=== PATIENT | female | born 1955 | race Caucasian/White ===

== ENCOUNTER 2023-04-24 13:16 | Outpatient (CLI) | payer MEDICARE, SELFPAY ==
--- NOTE | ~2023-04-24 | CT_ITS ---
Noncontrast CT scan of the right shoulder CLINICAL HISTORY: Preoperative planning TECHNIQUE: Axial noncontrast imaging of the right shoulder was performed. Sagittal and coronal reform atted images were constructed. Dose reduction technique was used on this scan by utilizing automated exposure control and iterative reconstruction technique. The dose-length product (DLP) was 477.30 mGy -cm. Findings: No acute fracture or dislocation seen. There is severe degenerative change of the glenohume ral joint. There is diffuse joint space narrowing with reactive sclerosis and subchondral cystic senior ge in the glenoid. Large inferomedial humeral head osteophyte present. There is mild AC joint degener ative change. No definite joint effusion seen. Visualized musculature is grossly unremarkable. No soft tissue mass or fluid collection evident. IMPRESSION: Severe glenohumeral joint osteoarthritis, as detailed above. Mild AC joint degenerative change. Reviewed, dictated and finalized at [facility]. 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
== END 2023-04-24 13:17 | disposition home or self-care (01) ==
LOC: ANHIMG 13:19
PROVIDERS: PCP Family Medicine; Visit Provider Orthopaedic Surgery
DX: M19.011 Primary osteoarthritis, right shoulder (principal)
CPT/HCPCS: 73200

== ENCOUNTER 2023-06-30 07:38 | Outpatient (CLI) | payer MEDICARE, SELFPAY ==
[2023-06-30 09:17] LABS: Hematocrit 37.4 % (37.0-47.0); Hemoglobin 11.4 g/dL (12.0-15.0); Mean Corpuscular HGB Conc 30.5 g/dl (32-36); Mean Corpuscular Hemoglobin 28.3 pg (26-34); Mean Corpuscular Volume 92.8 fl (80-100); Mean Platelet Volume 10.1 fl (7.4-10.4); Platelet Count Result 148 k/mm3 (150-375); Red Blood Count 4.03 M/mm3 (4.2-5.4); Red Cell Distribution Width 14.1 % (11.5-14.5)
[2023-06-30 09:31] LABS: Anion Gap 6 mmol/L (8-16); Blood Urea Nitrogen 18 mg/dL (7-17); Calcium 9.4 mg/dL (8.4-10.2); Carbon Dioxide 28 mmol/L (22-30); Chloride 107 mmol/L (98-107); Estimated Glomerular Filt Rate > 60; Glucose 99 mg/dL (65-110); Sodium 141 mmol/L (137-145)
[2023-06-30 09:47] LABS: White Blood Count 78.4 K/mm3 (4.5-10.0)
[2023-06-30 09:53] LABS: Band Neutrophils Percent 1 % (0-6); Basophils Absolute Manual 0.78 K/mm3 (0.0-0.1); Basophils Percent Manual 1 % (0-1); Lymphocytes Absolute Manual 50.96 K/mm3 (1.1-4.5); Metamyelocytes Percent 11 %; Monocytes Absolute Manual 0.78 K/mm3 (0.1-0.90); Monocytes Percent Manual 1 % (3-9); Neutrophils Absolute Manual 17.24 K/mm3 (1.7-7.2); Neutrophils Percent Manual 21 % (46-73); Total Cells Counted 100
[2023-06-30 09:54] LABS: Large Platelets Present; Platelet Estimate Decreased (Adequate); Schistocytes None Seen (NORMAL); Smudge Cells MANY
[2023-06-30 10:51] LABS: MRSA (PCR) NOT DETECTED (NOT DETECTE)
== END 2023-06-30 07:39 | disposition home or self-care (01) ==
LOC: ANHSURGERY 07:46
PROVIDERS: Anesthesiology; Visit Provider Orthopaedic Surgery
DX: M19.011 Primary osteoarthritis, right shoulder (principal); E11.9 Type 2 diabetes mellitus without complications; Z01.818 Encounter for other preprocedural examination
CPT/HCPCS: 36415; 80048; 85025; 86850; 86900; 86901; 87641

== ENCOUNTER 2023-07-11 01:44 | Day surgery (SDC) | payer MEDICARE, SELFPAY ==
[2023-06-30 08:17] VITALS: BP 157/84; PULSE 81; RESP 16; TEMP 37.1; O2SAT 98; BMI 32.8
--- NOTE | 2023-06-30 08:36 | PC.NURSE ---
Report to the Outpatient Waiting Room, entrance under the green pavilion located off [facility], at time __8:00AM on date __07/11/23 . Planned Procedure Time: ___10:00AM . Time changes happen often and if your time is changed the preop area will call you the afternoon before. - You and your visitor will be asked to self-screen and do not enter if you have any COVID symptoms. - A mask is optional within the hospital at this time. Patients may have clear liquids (water, carbonated beverages, clear teas, apple juice) until 3 hours prior to surgery with a maximum of 20 ounces. - No food from midnight until time of surgery. Take the following medications with a SIP of water the morning of surgery: ____LEVOTHYROXINE. TRADAMOL & MECLIZINE NEEDED. DO NOT STOP ANY OF YOUR OTHER PRESCRIPTION MEDICATIONS PRIOR TO SURGERY ?EXCEPT THE FOLLOWING Medications to discontinue per physician ___HOLD MELOXICAM 7 DAYS PRE-OP- LAST DOSE 07/03/23. HOLD ALL VITAMINS/SUPPLEMENTS 3 DAYS PRE-OP PER ANESTHESIA- LAST DOSE 07/07/23. Please no make-up, nail jordanian, hairspray, perfume, deodorant, or body powder the day of surgery. No jewelry (including any body piercings) or valuables the day of surgery, leave them at home. Please take a shower or bath the night before, or the morning of, surgery with an antibacterial soap. Wear comfortable, loose fitting clothing. Children are encouraged to wear pajamas. - Jewelry must be removed prior to entering the operating room. Rings and piercings that are not removed may be cut off. - The hospital will not accept responsibility for valuables. - Please leave all valuables, including medications, at home the day of surgery. If you are going home after surgery, a licensed experienced truck driver must drive you home. - NO public transportation without another adult if you receive anesthesia. - We recommend that an adult stay with you for 24 hours following discharge. - We also recommend that you do not drive, make important decision, drink alcoholic beverages, or take any drugs that were not prescribed by your health care provider for at least 24 hours after your discharge time. Follow any additional instructions given to you from your surgeon. If you or anyone in your household have experienced Covid symptoms in the past week, please notify your surgeon or the nurse liaison at the phone number below for possible testing. Telephone instructions given to ___PATIENT & HUSBAND and asked if any additional questions and then verbalized understanding. Patient advised to call surgeon office or pre surgery nurse liaison [phone] if any additional questions.
--- NOTE | 2023-06-30 09:01 | PC.NURSE ---
PT HAS SCRATCHES/OLD SCABS AT ARMS R/T PUPPY JUMPING ON HER. LENGTHY DISCUSSION REGARDING THE NEED FOR THESE TO HEAL PRIOR TO SURGERY. INSTRUCTION ON PROTECTING ARMS, WEARING LONG SLEEVES, AND NOT PICKING AT SCABS. INSTR TO CALL SURGEON IF SPOTS AREN'T HEALED PRIOR TO SURGERY. PT AND HUSB RELAY UNDERSTANDING.
[2023-07-11] VITALS (12 sets, daily range): BP systolic 129–157; BP diastolic 54–81; PULSE 92–110; RESP 13–20; TEMP 36.1–37.2; O2SAT 92–100
--- NOTE | ~2023-07-11 | XR_ITS ---
EXAMINATION: XR shoulder RT min 2V DATE: 07/11/2023 13:56 INDICATION: Right shoulder arthroplasty TECHNIQUE: AP, AP oblique and transscapular Y views of the right shoulder were obtained. COMPARISON: CT dated 04/24/2023 FINDINGS: Interval reverse right total shoulder arthroplasty which is in near-anatomic alignment. No fracture. Mild right acromioclavicular osteoarthritis. Expected small amount of soft tissue gas at the operativ e bed. Visualized portions of the lungs are clear. IMPRESSION: Right total shoulder arthroplasty, negative for postoperative purposes. Reviewed, dictated and finalized at location A. IN TUTOR
--- NOTE | 2023-07-11 08:09 | WPDANESEPPF ---
Anes - Initial Pre Proc Eval Procedure: Operation Date: 07/11/23 10:00 Proposed Procedures p Right Anatomic Total Shoulder Arthroplasty - Feliciano Mccracken MD Date/Time: 07/11/23 08:09 Surgeon: Feliciano Mccracken MD Pre Op Diagnosis: glenohumeral arthritis right shoulder Patient Data Age: 67 Gender: F Height: 1.52 m Weight: 76.3 kg Last Vital Signs Temp 37.1 C 06/30/23 08:17 Pulse 81 06/30/23 08:17 Resp 16 06/30/23 08:17 BP 157/84 H 06/30/23 08:17 Pulse Ox 98 06/30/23 08:17 O2 Del Method Room Air 06/30/23 08:17 Allergies Allergy/AdvReac Type Severity Reaction Status Date / Time amoxicillin Allergy Unknown Hives Verified 07/11/23 09:22 Penicillins Allergy Unknown Hives Verified 07/11/23 09:22 adhesive tape AdvReac Redness of Verified 07/11/23 09:22 Skin, EXCORIATION OF SKIN povidone-iodine AdvReac REDNESS, Verified 07/11/23 09:22 [From Betadine] IRRITATION OF SKIN Home Medications Medication Instructions Recorded Confirmed Type atorvastatin 40 mg tablet 40 mg PO DAILY 03/09/23 06/30/23 History blood-glucose meter 03/09/23 06/28/23 History duloxetine 20 mg capsule,delayed 40 mg PO HS 03/09/23 06/30/23 History release (Cymbalta) fluticasone propionate 50 1 spray intranasal DAILY PRN 03/09/23 06/30/23 History mcg/actuation nasal Congestion spray,suspension (Flonase Allergy Relief) insulin syringe-needle U-100 0.3 03/09/23 06/28/23 History mL 29 gauge x 1/2 lancets (Accu-Chek Softclix 03/09/23 06/28/23 History Lancets) latanoprost 0.005 % eye drops 1 drp EACH EYE HS 03/09/23 06/30/23 History (Xalatan) lisinopril 40 mg tablet 40 mg PO HS 03/09/23 06/30/23 History meclizine 12.5 mg tablet 12.5 mg PO TID PRN Dizziness Or 03/09/23 06/30/23 History Vertigo meloxicam 15 mg tablet 15 mg PO QAM 03/09/23 06/30/23 History metoprolol succinate 50 mg 50 mg PO HS 03/09/23 07/11/23 History tablet,extended release 24 hr pantoprazole 40 mg tablet,delayed 40 mg PO QAM 03/09/23 06/30/23 History release pen needle, diabetic 33 gauge x 03/09/23 06/28/23 History 5/32 (Microdot Insulin Pen Needle) tramadol 50 mg tablet 50 mg PO Q6H PRN Pain 03/09/23 06/30/23 History zinc acetate 50 mg (zinc) capsule 50 mg PO DAILY 03/09/23 06/30/23 History (Galzin) glipizide 2.5 mg tablet 1.25 mg PO HS 05/19/23 06/30/23 History levothyroxine 100 mcg capsule 100 mcg PO QAM 05/19/23 07/11/23 History metformin 1,000 mg tablet 1,000 mg PO BID 05/19/23 06/30/23 History dulaglutide 1.5 mg/0.5 mL 3 mg subcut WEEKLY 06/28/23 06/30/23 History subcutaneous pen injector Bifidobacterium infantis 4 mg 4 mg PO DAILY 06/30/23 06/30/23 History capsule (Align) docusate sodium 100 mg capsule 100 mg PO DAILY 06/30/23 06/30/23 History (Stool Softener) fiber 2 tablet PO DAILY 06/30/23 06/30/23 History aspirin 81 mg tablet,delayed 81 mg PO BID 14 days #28 tabs 07/11/23 Rx release oxycodone-acetaminophen 5 mg-325 1 - 2 tablet PO Q4-6H PRN pain #30 07/11/23 Rx mg tablet tabs Patient hx anesthesia problems: none Family hx anesthesia problems: none Results Review: All pre-operative results and documents have been reviewed as part of the pre-operative evaluation. [facility] Past Medical History Medical History Chronic bilateral back pain Class 1 obesity CLL (chronic lymphocytic leukemia) Diabetes Dyslipidemia Hyperlipidemia Hypertension Hypothyroidism Spinal stenosis Urge incontinence of urine Vertigo Surgical History Surgical History History of back surgery (~05/2019) Family History Family History Unknown Diabetes mellitus Hypertension Malignant neoplasm of prostate Social History Social History (Updated 06/28/23 @ 14:11 by Mohini Li) Smoking status: Never smoke
[2023-07-11] MEDS: LACTATED RINGERS 1,000 ML 30 ML IV CONT ×2 (09:10→13:32)
[2023-07-11] MEDS: ACETAMINOPHEN 500 MG TABLET 1000 MG PO ×3 (09:10→20:51)
[2023-07-11] MEDS: TRANEXAMIC ACID 1,000MG/ISO100 1,000 MG/100 ML BAG 200 MG IVPB (09:10)
[2023-07-11 09:18] LABS: Glucose Point of Care 91 mg/dl (65-105)
--- NOTE | 2023-07-11 10:56 | WPDHPUPDATE1 ---
History and Physical Update Update Date/Time: 07/11/23 10:56 History and Physical has been reviewed, including an updated exam of the patient. There are NO changes in the patient's condition. Risks, benefits, and alternatives have been discussed and questions answered. Patient agrees to proceed with procedure.
--- NOTE | 2023-07-11 11:00 | WPDANESPNB ---
Anes - Peripheral Nerve Block Date/Time: 07/11/23 11:00 I have discussed with the patient/family/POA the placement of a peripheral nerve block for post-operative pain management, including associated risks, benefits, complications, and side effects. Alternative methods of post-operative analgesia were detailed. Questions were solicited and answers provided to the satisfaction of the patient/family/POA. Time-Out: A pre-procedural Time-Out was completed immediately before starting the procedure and confirmed: Patient Identification, Site, Procedure, Patient Position and the Availability of Requisite Equipment. Clinical Indications: Acute post-operative pain management requested by the operative surgeon. Nerve Block Insertion Note Anes-nerve block: interscalene right Patient position: supine Skin prep: chlorhexidine Needle: 22 gauge, stimulating, insulated echogenic needle. Needle length: 50 mm Technique: ultrasound Injectate: bupivacaine 0.5% with epi 5 mcg/ml (20cc- no epi) Observations: tolerated well Complications: none Procedure start time:: 105 Procedure end time:: 1054
[2023-07-11] MEDS: ceFAZolin 2 GM/D5W 50 ML 2 GM/50 ML BAG IVPB ×2 (11:17→19:37)
[2023-07-11] MEDS: VANCOMYCIN HCL 1,000 MG VIAL 1000 MG TOPICAL (12:06)
[2023-07-11 13:39] LABS: Glucose Point of Care 143 mg/dl (65-105)
--- NOTE | 2023-07-11 13:54 | W.PM.PROC2 ---
Procedure Note - Detailed Date of Procedure 07/11/23 Pre-op Diagnosis Glenohumeral arthritis right shoulder Post-op Diagnosis Same Procedure Performed Reverse total shoulder arthroplasty, right. Surgeon Feliciano Mccracken MD Dairy Associate Nenita Quezada PA-C Anesthesia General and Regional (Interscalene block.) Findings Severe erosive changes confirmed. It was elected to proceed with reverse arthroplasty. Description of Procedure The patient was given an interscalene block in the preoperative area. Preoperative antibiotics were given. The patient was transferred to the operating room and a general anesthetic was administered. The beach chair position was used at 45 degrees. All bony prominences were padded. The head was carefully stabilized on the [facility] laborer heading. A sterile prep and drape was performed in the usual manner with ChloraPrep. A longitudinal incision was created at the anterior shoulder just lateral to the deltopectoral interval. Hydrogen peroxide was placed on the incision and then rinsed after one minute. Careful dissection was performed to expose the interval and protect the cephalic vein. The vein was retracted medially. The upper border of the pectoralis was released. Anterior circumflex vessel branches were suture ligated. The biceps was tenodesed. A subscapularis tenotomy was performed. The inferior capsule was released, exposing the humeral head. Osteophytes were removed. Care was taken to stay on bone to protect the axillary nerve. The anatomic head cut was taken with the oscillating saw. The guide pin was placed, central drilling performed, and the broach trial inserted. The neck anteversion and inclination were carefully assessed. The cut protector was placed, and attention was turned to the glenoid. Retractors were placed. Releases were carried out for exposure. The subscapularis was mobilized, the inferior capsule and long head of triceps released, and the superior and middle glenohumeral ligaments released as well. Labral tissue was resected as needed. The sizing template was used to assess the baseplate position on the glenoid. A guide pin was placed. Minimal reaming was used to accomplish a flat surface without violating the subchondral bone. Version was corrected according to preoperative templating. The boss was drilled, and the real component was impacted into position. Supplemental locking screws were placed centrally, superiorly, and inferiorly. The glenosphere was impacted into the taper. The proximal humerus was reamed for the inset component. The humeral components were trialed. The real humeral stem, tray, and insert were impacted into position. The shoulder was copiously irrigated periodically with pulsatile lavage. The shoulder was reduced and stability confirmed. 1 gram of Vancomycin powder was placed in the joint. The subscapularis tenotomy was repaired with #5 Ethibond sutures. The biceps tenodesis was incorporated with the pectoralis tendon repair. The deltopectoral space was reapproximated with number 1 Vicryl. The remaining tissue was closed with 0 Quill and 2-0 Quill running suture and steri-strips. A sterile silver occlusive dressing and shoulder immobilizer were placed. The patient was transferred to the recovery room. Physician social media assistant, Nenita Quezada PA-C, required for surgery; including patient positioning, draping, tissue retraction, maintaining instrument position, wound closure, and dressing placement. Implants Shoulder Innovations reverse TSA size 0 stem. +0 polyethylene insert. 10 degree baseplate. 33 +3 mm glenosphere. Estimated Blood Loss 100 Drains No Pathology None sent Complications No immediate complications Condition Stable Disposition PACU [facility] Billing Surgery - Charge Forward: Surgery Billing
[2023-07-11] MEDS: SODIUM CHLORIDE 0.9% IV 1,000 ML 125 ML IV CONT (15:30)
[2023-07-11] MEDS: traMADol HCL (*CRX) 50 MG TABLET PO ×2 (15:31→21:01)
--- NOTE | 2023-07-11 15:42 | ADMGEN ---
This patient, Raisa Small, was admitted to 3 [facility] Surg Room 316-02. Patient/family oriented to hospital policies and general routines including ID bracelet, bed and alarms, visiting hours, pain management, procedures, bathroom and other care routines, personal items, smoking policy, room service/diet, and visiting hours. Information on how to activate the Rapid Response Team has been discussed. Patient/Family are encouraged to report perceived risks to care and to ask questions if they do not understand what they are told or what they should do. arrived post op at 1430 patients pain 08/05, scd's applied, IVF started, cryo therapy started. family at bedside.
[2023-07-11] MEDS: ASPIRIN 81 MG ENTERIC TABLET PO (16:45)
[2023-07-11] MEDS: metFORMIN HCL 500 MG TABLET 1000 MG PO (16:45)
[2023-07-11] MEDS: SENNA/DOCUSATE SODIUM TABLET 2 TAB PO (16:46)
--- NOTE | 2023-07-11 17:00 | PM.IMCN ---
Assessment and Plan Assessment and plan (1) Arthritis of right glenohumeral joint: Code(s): M19.011 - Primary osteoarthritis, right shoulder Status: Acute Assessment and Plan: s/p right anatomic total shoulder arthroplasty on 07/11/23 - ambulate with assistance and up to chair - cold flow therapy - use IS - neurovasc checks - see order for intervals - SCDs and TEDS - resume diet - pain management - zofran PRN - monitor labs in AM - CBC and BMP - bowel regimen: docusate/senna, polyethylene glycol - maintenance fluids: NS 125 mL/hr x8 hrs - prophylactic atb - Ancef - PT/OT eval and treat (2) Diabetes: Qualifiers: Diabetes mellitus complication status: without complication Diabetes mellitus terminal operations supervisor insulin use: without terminal operations supervisor use Diabetes mellitus type: type 2 Qualified Code(s): E11.9 - Type 2 diabetes mellitus without complications Code(s): E11.9 - Type 2 diabetes mellitus without complications Status: Acute Assessment and Plan: - Hypoglycemia protocol - POC blood glucose ACHS - home medications - continue glipizide, metformin. hold Trulicity. - correct regimen ordered - low dose TIDWM and HS - A1C ordered (3) Hypertension: Qualifiers: Hypertension type: primary hypertension Qualified Code(s): I10 - Essential (primary) hypertension Code(s): I10 - Essential (primary) hypertension Status: Acute Assessment and Plan: - chronic, mildly elevated at present - continue home medications: lisinopril and metoprolol - monitor BP (4) CLL (chronic lymphocytic leukemia): Code(s): C91.10 - Chronic lymphocytic leukemia of B-cell type not having achieved remission Status: Acute Assessment and Plan: -follows with Oncologist in [facility] -not currently on chemo or radiation -WBC 78.4, absolute neutrophils 17.24, absolute lymphocytes 50.96, platelet count 148 -per patient WBC is typically 76, plan to not start treatment until she reaches a certain threshold due to lack of symptoms -repeat CBC in AM Plan s/p right anatomic total shoulder arthroplasty on 07/11/23. reviewed home medications. monitor glucose and BP. Has CLL - WBC baseline 76, currently 78. Diet: diabetic diet GI Prophylaxis: continue home pantoprazole DVT Prophylaxis: SCDs, TEDs Lines: pIV Code Status: Full Code HPI Date of Consult Consult date: 07/11/23 Requesting Physician: Feliciano Mccracken MD Primary Care Provider: Josi Haque, Consult Narrative Reason for consult: Medical Managment Narrative: 67 y/o F presented here for surgical management of her R glenohumeral joint arthritis with PMH of HLD, HTN, DM, hypothyroidism, vertigo, and CLL (not currently treated). Patient has been following with the orthopedic team here at [facility] since Mar 2023. Patient sustained injury to R shoulder several years ago when she fell and her shoulder struck the back of a trailer. Pain had been worsening over the last 9 months. Patient has been on Meloxicam and not a good candidate for shoulder therapy. Elected for surgical management due to the need to carry heavy buckets - [place] her to be active. Patient had a right anatomic total shoulder arthroplasty by Nawaf BROWN, no immediate post-op complications. Pre-operative workup showed elevated WBC at 78.4, hgb of 11.4, and creatinine of 0.6. Currently experiencing some numbness in her hand which does not extend to her forearm or shoulder. Expected finding per ortho when discussed post-operatively. Described sensation as if her hand is too swollen to close into a fist. No pain or N/V. Review of Systems Review of Systems: All systems reviewed & are unremarkable except as noted in HPI and below PMFSH Past Medical History Medical History (Updated 07/11/23 @ 18:21 by Christina Valencia, LILY) Chronic bilateral back pain Class 1 obesity CLL (chroni
[2023-07-11 20:52] LABS: Glucose Point of Care 200 mg/dl (65-105)
[2023-07-11] MEDS: DULoxetine HCL 20 MG CAPSULE.DR 40 MG PO (20:52)
[2023-07-11] MEDS: lisinopriL 20 MG TABLET 40 MG PO (20:52)
[2023-07-11] MEDS: METOPROLOL SUCCINATE EXT REL 50 MG TABCR PO (20:52)
[2023-07-11] MEDS: ERYTHROMYCIN OPHTH OINTMENT 1 GM TUBE 1 APPLIC LEFT EYE (20:53)
[2023-07-11] MEDS: LATANOPROST 0.005% OP SOLN 2.5 ML BTL 1 DROP EACH EYE (20:53)
[2023-07-12] MEDS: traMADol HCL (*CRX) 50 MG TABLET PO ×2 (01:44→10:48)
[2023-07-12] MEDS: ACETAMINOPHEN 500 MG TABLET 1000 MG PO ×2 (02:00→08:54)
[2023-07-12] MEDS: ceFAZolin 2 GM/D5W 50 ML 2 GM/50 ML BAG IVPB (03:55)
[2023-07-12 04:07] VITALS: BP 124/60; PULSE 85; RESP 14; TEMP 36.1; O2SAT 95
[2023-07-12] MEDS: LEVOTHYROXINE SODIUM 100 MCG TABLET PO (04:10)
[2023-07-12] MEDS: ERYTHROMYCIN OPHTH OINTMENT 1 GM TUBE 1 APPLIC LEFT EYE ×2 (04:10→08:55)
[2023-07-12 06:17] LABS: Basophils Absolute Auto 0.1 K/mm3 (0.0-0.1); Basophils Percent Auto 0.1 % (0.2-1.2); Hematocrit 34.8 % (37.0-47.0); Hemoglobin 10.4 g/dL (12.0-15.0); Immature Granulocyte Absolute 0.21 K/mm3 (0.00-0.031); Immature Granulocyte Percent A 0.3 % (0-0.5); Lymphocytes Absolute Auto 66.18 K/mm3 (0.9-3.2); Lymphocytes Percent Auto 88.7 % (18.3-44.2); Mean Corpuscular HGB Conc 29.9 g/dl (32-36); Mean Corpuscular Volume 96.9 fl (80-100); Mean Platelet Volume 10.4 fl (7.4-10.4); Monocytes Absolute Auto 1.4 K/mm3 (0.1-0.6); Monocytes Percent Auto 1.9 % (2.6-8.5); Neutrophils Absolute Auto 6.6 K/mm3 (1.3-6.7); Platelet Count Result 141 k/mm3 (150-375); Red Blood Count 3.59 M/mm3 (4.2-5.4); Red Cell Distribution Width 14.3 % (11.5-14.5)
[2023-07-12 06:27] LABS: Anion Gap 5 mmol/L (8-16); Blood Urea Nitrogen 15 mg/dL (7-17); Calcium 9.1 mg/dL (8.4-10.2); Carbon Dioxide 27 mmol/L (22-30); Chloride 106 mmol/L (98-107); Estimated CRCL calculation 59 ml/min; Estimated Glomerular Filt Rate > 60; Glucose 141 mg/dL (65-110); Potassium 4.8 mmol/L (3.4-5.0); Sodium 138 mmol/L (137-145)
[2023-07-12 06:46] LABS: White Blood Count 74.6 K/mm3 (4.5-10.0)
[2023-07-12 06:56] LABS: Hemoglobin A1C 6.7 % (<5.7)
[2023-07-12 07:22] LABS: Glucose Point of Care 121 mg/dl (65-105)
--- NOTE | 2023-07-12 07:51 | PM.DS ---
DS: Admitting Diagnosis Discharge Date 07/12/23 Admitting Diagnosis glenohumeral joint arthritis DS: Discharge Diagnosis Discharge Diagnosis (1) Status post reverse total arthroplasty of right shoulder: Code(s): Z96.611 - Presence of right artificial shoulder joint Status: Acute Plan Postop day 1: Right reverse total shoulder arthroplasty Patient tolerated procedure well. No complications. Pain manageable with pain medication. No numbness or tingling. We had a lengthy discussion regarding postoperative wound care, limitations, expectations, and exercises. Patient shows good understanding. She has had initial physical therapy and is tolerating it well. DVT prophylaxis: 81 mg baby aspirin b.i.d. for 14 days. Pain medication: Percocet. Patient has followup appointment with Dr. Mccracken in 3 weeks. DS: Summary Hospital Course Hospital Course: Patient has had initial PT/OT and is tolerating it well. Status at Discharge Functional status at discharge: independent ambulation Overall status at discharge: patient is progressing back to baseline Time Spent with Patient Time attestation: Total time spent providing and/or coordinating discharge services: Exam Narrative: Normal weight 67 y/o Female. Resting comfortably in bed. Wearing sling. Dressing dry and intact with no drainage. Moderate swelling. Moderate ecchymosis. No erythema. No hematoma. Range of motion limited due to pain. Calf nontender. Neurologic status intact. No varicosities. Distal pulses palpable. Deltoid fires. DS: Data Data Completed and Pending Labs on day of discharge: Labs from last 24 hours 07/12/23 07/12/23 07/11/23 07:15 05:56 20:14 WBC 74.6 H* RBC 3.59 L Hgb 10.4 L Hct 34.8 L MCV 96.9 MCH 29.0 MCHC 29.9 L RDW 14.3 Plt Count 141 L MPV 10.4 Immature Gran % (Auto) 0.3 Neut % (Auto) 9.0 L Lymph % (Auto) 88.7 H Letcher % (Auto) 1.9 L Eos % (Auto) 0.0 Baso % (Auto) 0.1 L Lymph # (Auto) 66.18 H Letcher # (Auto) 1.4 H Eos # (Auto) 0.0 Baso # (Auto) 0.1 Abs Immat Gran (auto) 0.21 H Absolute Neuts (auto) 6.6 Absolute Nucleated RBC 0.0 Nucleated RBC % 0.0 Sodium 138 Potassium 4.8 Chloride 106 Carbon Dioxide 27 Anion Gap 5 L BUN 15 Creatinine 0.70 Estim Creat Clear Calc 59 Estimated GFR > 60 Glucose 141 H POC Capillary Glucose 121 H 200 H Hemoglobin A1c 6.7 H Calcium 9.1 07/11/23 07/11/23 13:37 09:15 WBC RBC Hgb Hct MCV MCH MCHC RDW Plt Count MPV Immature Gran % (Auto) Neut % (Auto) Lymph % (Auto) Letcher % (Auto) Eos % (Auto) Baso % (Auto) Lymph # (Auto) Letcher # (Auto) Eos # (Auto) Baso # (Auto) Abs Immat Gran (auto) Absolute Neuts (auto) Absolute Nucleated RBC Nucleated RBC % Sodium Potassium Chloride Carbon Dioxide Anion Gap BUN Creatinine Estim Creat Clear Calc Estimated GFR Glucose POC Capillary Glucose 143 H 91 Hemoglobin A1c Calcium Discharge Plan Discharge Patient Disposition: Home, Self-Care Discharge Instructions: See green instruction sheets Stand Alone Forms: General Discharge Instructions Follow-up/Referrals: Nenita Quezada PA [Physician Senior Communications Specialist] - Discharge Medications: New aspirin 81 mg tablet,delayed release (DR/EC) 81 mg PO BID 14 Days Qty: 28 0RF oxycodone-acetaminophen 5-325 mg tablet 1 - 2 tablet PO Q4-6H MDD 6 PRN (Reason: pain) Qty: 30 0RF Continued (DME) lancets [Accu-Chek Softclix Lancets] Misc See Rx Instructions .Route Rx Instructions: As directed atorvastatin 40 mg tablet 40 mg PO DAILY (DME) insulin syringe-needle U-100 0.3 mL 29 gauge x 1/2 syringe See Rx Instructions .Route Rx Instructions: As directed (DME) blood-glucose meter Kit See Rx Instructions .Route Rx
[2023-07-12 07:59] VITALS: BP 143/71; PULSE 76; RESP 16; TEMP 35.9; O2SAT 99
--- NOTE | 2023-07-12 08:02 | WPDANESPN ---
Anes - Prog Note Post-Op Date/Time: 07/12/23 08:02 Cardiovascular status: normal Respiratory status: normal Airway patency: baseline Mental status: baseline Post-Op hydration status: normal Vital Signs: Last Vital Signs Temp 35.9 C L 07/12/23 07:59 Pulse 76 07/12/23 07:59 Resp 16 07/12/23 07:59 BP 143/71 H 07/12/23 07:59 Pulse Ox 99 07/12/23 07:59 O2 Del Method Room Air 07/11/23 20:00 O2 Flow Rate 2 07/11/23 14:15 Pain Score (VAS): 0 I/O: Intake & Output 07/11/23 07/12/23 07/12/23 23:59 07:59 15:59 Intake Total 290 Balance 290 Laboratory Tests 07/12/23 05:56 07/12/23 05:56 07/11/23 07/11/23 07/11/23 09:15 13:37 20:14 WBC RBC Hgb Hct MCV MCH MCHC RDW Plt Count MPV Immature Gran % (Auto) Neut % (Auto) Lymph % (Auto) [place] % (Auto) Eos % (Auto) Baso % (Auto) Lymph # (Auto) [place] # (Auto) Eos # (Auto) Baso # (Auto) Abs Immat Gran (auto) Absolute Neuts (auto) Absolute Nucleated RBC Nucleated RBC % Sodium Potassium Chloride Carbon Dioxide Anion Gap BUN Creatinine Estim Creat Clear Calc Estimated GFR Glucose POC Capillary Glucose 91 143 H 200 H Hemoglobin A1c Calcium 07/12/23 07/12/23 05:56 07:15 WBC 74.6 H* RBC 3.59 L Hgb 10.4 L Hct 34.8 L MCV 96.9 MCH 29.0 MCHC 29.9 L RDW 14.3 Plt Count 141 L MPV 10.4 Immature Gran % (Auto) 0.3 Neut % (Auto) 9.0 L Lymph % (Auto) 88.7 H [place] % (Auto) 1.9 L Eos % (Auto) 0.0 Baso % (Auto) 0.1 L Lymph # (Auto) 66.18 H [place] # (Auto) 1.4 H Eos # (Auto) 0.0 Baso # (Auto) 0.1 Abs Immat Gran (auto) 0.21 H Absolute Neuts (auto) 6.6 Absolute Nucleated RBC 0.0 Nucleated RBC % 0.0 Sodium 138 Potassium 4.8 Chloride 106 Carbon Dioxide 27 Anion Gap 5 L BUN 15 Creatinine 0.70 Estim Creat Clear Calc 59 Estimated GFR > 60 Glucose 141 H POC Capillary Glucose 121 H Hemoglobin A1c 6.7 H Calcium 9.1 Post-procedural complaints: none Patient Feedback: Patient satisfied with anesthetic care.
[2023-07-12 08:53] VITALS: O2SAT 96
[2023-07-12] MEDS: SENNA/DOCUSATE SODIUM TABLET 2 TAB PO (08:53)
[2023-07-12] MEDS: PANTOPRAZOLE 40 MG TABLET PO (08:53)
[2023-07-12] MEDS: ASPIRIN 81 MG ENTERIC TABLET PO (08:53)
[2023-07-12] MEDS: ATORVASTATIN 40 MG TABLET PO (08:53)
[2023-07-12] MEDS: metFORMIN HCL 500 MG TABLET 1000 MG PO (08:54)
[2023-07-12] MEDS: MELOXICAM 7.5 MG TABLET 15 MG PO (08:55)
[2023-07-12 11:22] LABS: Glucose Point of Care 118 mg/dl (65-105)
[2023-07-12] MEDS: CEPHALEXIN 500 MG CAPSULE 1000 MG PO (11:59)
[2023-07-12 12:00] VITALS: BP 142/73; PULSE 79; RESP 16; TEMP 35.9; O2SAT 98
== END 2023-07-12 12:20 | disposition home or self-care (01) ==
LOC: ANHSURGERY 07:39 → ANH3MEDSUR 14:25
PROVIDERS: Physician Assistant Surgical; Student in an Organized Health Care Education/Training Program; PCP Family Medicine; Visit Provider Orthopaedic Surgery
PROC: (CPT 23472; principal; 2023-07-11 10:00)
DX: M19.011 Primary osteoarthritis, right shoulder (principal); G89.18 Other acute postprocedural pain; C91.10 Chronic lymphocytic leukemia of B-cell type not having achieved remission; E11.9 Type 2 diabetes mellitus without complications; E78.5 Hyperlipidemia, unspecified; I10 Essential (primary) hypertension; E03.9 Hypothyroidism, unspecified; E66.9 Obesity, unspecified; Z68.31 Body mass index [BMI] 31.0-31.9, adult; Z79.84 Long term (current) use of oral hypoglycemic drugs; Z79.85 Long-term (current) use of injectable non-insulin antidiabetic drugs
CPT/HCPCS: 23472; 64415; 36415; 73030; 80048; 82948; 83036; 85025; 97110; 97161; 97165; 97530; 97535; A4565; A9270; C1713; C1776; J0171; J0330; J0690; J1100; J1170; J1885; J2250; J2270; J2405; J2704; J2795; J3010; J3370; J7030; J7120

== ENCOUNTER 2024-07-04 09:54 | Outpatient (CLI) | payer MEDICARE, SELFPAY ==
--- NOTE | ~2024-07-04 | XR_ITS ---
Right Shoulder Technique: AP and scapular Y views were obtained. Clinical History: Arthroplasty COMPARISON: 08/02/2023 Findings: No fracture or dislocation is seen. Stable right shoulder arthroplasty. No hardware complic ation is evident. Soft tissues are unremarkable. Impression: Stable right shoulder arthroplasty. No acute abnormality. Reviewed, dictated and finalized at [facility]. INUOUS PROCESS TANNER ROTARY DRUM Impression: Stable right shoulder arthroplasty. No acute abnormality.
--- OUTSIDE RECORDS SUMMARY | 2024-07-04 10:20 | XMS_ITS | Patient Health Summary ---
Author Organization [facility] Address [address] [place] [address] Care Team Providers Care Waste Collector Name Role Phone Unavailable Primary Care Provider Unavailabl e Note from [facility],non-owned Affiliates and Associated Physician Practices is amultiple site organization consisting of ambulatory clinics and hospital sitesin [place], [place], [place] and [place]. This disclosure is being madepursuant to the Care Everywhere program and may not contain all information available regarding this patient. Last updated 18.[facility] Allergies * Betaine(Urticaria) -Medium Criticality * Penicillins(Urticaria) -Medium Criticality * Sulfa Drugs(Urticaria) -Medium Criticality Medications * Be aware that medications may not be up to date on this document. Alwaysverify current medications with the patient. * Zinc Gluconate (ZINC COLD THERAPY PO) * omeprazole EC (PRILOSEC OTC) 20 MG tablet Take 1 tablet by mouth 2 times daily * dulaglutide (TRULICITY) 1.5 MG/0.5ML injection(Started 03/06/2019) Inject 1.5 mg subcutaneously every 7 days * glipiZIDE (GLUCOTROL) 5 MG tablet(Started 03/06/2019) Take 2.5 mg by mouth 2 times daily * levothyroxine (SYNTHROID) 112 MCG tablet(Started 12/25/2018) TAKE 1 TABLET BY MOUTH ONCE DAILY * lisinopril (PRINIVIL; ZESTRIL) 40 MG tablet(Started 03/28/2019) TAKE 1 TABLET BY MOUTH ONCE DAILY * lovastatin (MEVACOR) 40 MG tablet(Started 03/29/2019) Take 40 mg by mouth once daily 3 refills left * metFORMIN (GLUCOPHAGE) 1000 MG tablet(Started 04/25/2018) Take 1,000 mg by mouth 2 times daily with morning and evening meal * metoprolol succinate XL 24hr (TOPROL XL) 50 MG tablet(Started 07/09/2018) TAKE 1 TABLET BY MOUTH ONCE DAILY * HYDROcodone-acetaminophen (NORCO) 7.5-325 MG tablet(Started 06/11/2019) Take 1-2 tablets by mouth every 4 hours as needed * cyclobenzaprine (FLEXERIL) 10 MG tablet(Started 06/11/2019) Take 1 tablet by mouth 3 times daily as needed for Muscle Spasms * DULoxetine (CYMBALTA) 20 MG capsule(Started 06/14/2019) Take 1 capsule by mouth once daily Active Problems Problem Noted Date Diagnosed Date Spinal stenosis of lumbar re gion with neurogenic claudication 06/10/2019 Social History Tobacco Use Types Packs/Day Years Used Date Smoking Tobacco: Never Smokeless Tobacco: Never Tobacco Cessation:Counseling Given: No Alcohol Use Standard Drinks/Week Comments Yes 2 (1 standard drink = 0.6 oz pur e alcohol) AUDIT-C Answer Date Recorded Frequency of Alcohol Consumption 4 or more times a week 04/30/2019 Average Number of Drinks 1 or 2 019 Frequency of Binge Drinking Never 07/2018 Sex and Gender Information Value Date Recorded Sex Assigned at Not on file Gender Identity Not on file Sexual Orientation Not on file Last Filed Vital Signs Vital Sign Reading Time Taken Comments Blood Pressure 108/51 06/14/2019 8:37 AM JACQUARD CARD CUTTER Pulse 88 06/14/2019 8:37 AM JACQUARD CARD CUTTER Temperature 36.7 C (98.1 F) 06/14/2019 8:37 AM JACQUARD CARD CUTTER Respiratory Rate 20 06/14/2019 8:37 AM JACQUARD CARD CUTTER Oxygen Saturation 93% 06/14/2019 8:37 AM JACQUARD CARD CUTTER Inhaled Oxygen Concentration - - Weight 78.5 kg (173 lb) 07/26/2019 10:50 AM JACQUARD CARD CUTTER Height 154.9 cm (5' 1 ) 07/26/2019 10:50 AM JACQUARD CARD CUTTER Body Mass Index 32.69 07/26/2019 10:50 AM JACQUARD CARD CUTTER Procedures * APHERESIS/TRANSFUSION ORDER(Performed 06/18/2019) * GLUCOSE - POINT OF CARE(Performed 06/13/2019) * GLUCOSE - POINT OF CARE(Performed 06/13/2019) * GLUCOSE - POINT OF CARE(Performed 06/13/2019) * GLUCOSE - POINT OF CARE(Performed 06/13/2019) * GLUCOSE - POINT OF CARE(Performed 06/12/2019) * GLUCOSE - POINT OF CARE(Performed 06/12/2019) * GLUCOSE - POINT OF CARE(Performed 06/12/2019) * GLUCOSE - POINT OF CARE(Performed 06/11/2019) * GLUCOSE - POINT OF CARE(Performed 06/11/2019) * GLUCOSE - POINT OF CARE(Performed 06/11/2019) * GLUCOSE - POINT OF CARE(Performed 06/11/2019) * GLUCOSE - POINT OF CARE(Performed 06/11/2019) * GLUCOSE - POINT OF CARE(Performed 06/10/2019) * XR LUMBAR SPINE IN OR 1VW(Performed 06/10/2019) Performed for Chronic low back pain with left-sided sciatica, unspecified back pain laterality * DECOMPRESSION LUMBAR 1-2 LEVELS(Performed 06/10/2019) * GLUCOSE - POINT OF CARE(Performed 06/10/2019) * GLUCOSE - POINT OF CARE(Performed 06/10/2019) * BLOOD TYPE VERIFICATION(Performed 06/10/2019) * GLUCOSE - POINT OF CARE(Performed 06/10/2019) * TYPE + SCREEN PANEL(Performed 06/10/2019) * EKG(Performed 05/08/2019) Results * APHERESIS/TRANSFUSION ORDER (06/18/2019 6:14 PM JACQUARD CARD CUTTER) Narrative 06/18/2019 6:14 PM JACQUARD CARD CUTTER Ordered by an unspecified provider. Scanned Document NURSING - VITAL SIGN S AND ASSESSMENT * (ABNORMAL) GLUCOSE - POINT OF CARE (06/13/2019 11:27 PM JACQUARD CARD CUTTER) Only the most recent of16 resultswithin the time period is included. Glucose WB/POC 161(H) 70 - 106 mg/dL 06/14/2019 12:36 AM JACQUARD CARD CUTTER [facility] Specimen Type Arterial/C apillary 06/14/2019 12:36 AM JACQUARD CARD CUTTER [facility] Blood BLOOD SPECIMEN / Unknown 06/13/2019 11:27 PM JACQUARD CARD CUTTER 06/14/2019 12:36 AM JACQUARD CARD CUTTER Ravin Rose MD LAB - POINT OF CARE ORDERABLES [facility] [address] [place] [address] * XR LUMBAR SPINE IN OR 1VW (06/10/2019 4:12 PM JACQUARD CARD CUTTER) Anatomical Region Laterality Modality Spine Radiographic Savannah ging 06/10/2019 4:28 PM JACQUARD CARD CUTTER Narrative 06/10/2019 4:28 PM JACQUARD CARD CUTTER EXAM: XR LUMBAR SPINE IN OR 1VW*[id number] INDICATION: Lumbago with sciatica, left side COMPARISON: none available FINDINGS: Intraoperative crosstable lateral localizer shows metallic device at the L4 level. There is decreased intervertebral disc space height, degenerative endplate change, hypertrophic spurring and facet arthropathy throughout the lumbar spine. There is no compression or osseous destruction. Reading Radiologist: Jhony Tinoco MD on 06/10/2019 at 4:28 PM Procedure Note Jhony Tinoco MD - 06/10/2019 EXAM: XR LUMBAR SPINE IN OR 1VW*[id number] INDICATION: Lumbago with sciatica, left side COMPARISON: none available FINDINGS: Intraoperative crosstable lateral localizer shows metallic device at the L4 level. There is decreased intervertebral disc space height, degenerative endplate change, hypertrophic spurring and facet arthropathy throughout the lumbar spine. There is no compression or osseous destruction. Reading Radiologist: Jhony Tinoco MD on 06/10/2019 at 4:28 PM Ravin Rose MD DIAGNOSTIC IMAGING O RDERABLES * BLOOD TYPE VERIFICATION (06/10/2019 11:15 AM JACQUARD CARD CUTTER) ABO O 06/10/2019 11:46 AM JACQUARD CARD CUTTER [facility] Rh Type Negative 06/10/2019 11:46 AM JACQUARD CARD CUTTER [facility] Blood Bank BLOOD SPECIMEN / Unknown Venipuncture / Unknown 06/10/2019 11:15 AM JACQUARD CARD CUTTER 06/10/2019 11:23 AM JACQUARD CARD CUTTER Ravin Rose MD LAB - BLOOD BANK ORD ERABLES [facility] [address] [place] [address], [facility] * TYPE + SCREEN PANEL (06/10/2019 11:07 AM JACQUARD CARD CUTTER) ABO O 06/10/2019 11:46 AM JACQUARD CARD CUTTER [facility] Rh Type Negative 06/10/2019 11:46 AM JACQUARD CARD CUTTER [facility] Comment:History checked. Col lect retype. Antibody Screen Negative 06/10/2019 11:46 AM JACQUARD CARD CUTTER [facility] Blood Bank BLOOD SPECIMEN / Unknown Venipuncture / Unknown 06/10/2019 11:07 AM JACQUARD CARD CUTTER 06/10/2019 11:10 AM JACQUARD CARD CUTTER Herlinda Marie DO LAB - BLOOD BANK ORD ERABLES [facility] [address] * EKG (05/08/2019) Provider Unknown SCANNING ONLY
--- OUTSIDE RECORDS SUMMARY | 2024-07-04 10:20 | XMS_ITS | Encounter Summary ---
Author Organization [facility] Address [address] [place] [address] Phone Care Team Providers Care Gear Machine Operator Name Role Phone Josi Haque MD Primary Care Provider [phone] Maxim Barrios DPM Unavailable [phone] Alvarez Nelson MD Unavailable Mike Cardozo MD Unavailable Enmanuel Phipps MD Primary Care Provider [phone] Afshan Blankenship APRN, [facility] Primary Care Provider [phone] Reason for Visit * Reason Comments Medication Refill Encounter Details Date Type Department Care Team (Late st Contact Info) Description 12/07/[address] [facility] Medical [facility] - Family Medicine [facility] [address] [place] [address] Josi Haque MD [address] [place] [address] Medication Refill Social History Tobacco Use Types Packs/Day Years Used Date Smoking Tobacco: Never Smokeless Tobacco: Never Alcohol Use Standard Drinks/Week Comments Yes 0 (1 standard drink = 0.6 oz pur e alcohol) occasionally PHQ-2 Answer Date Recorded Total Score - Questions 1-9 0 10/28 Sexually Active Control Partners Comments Not Currently Male Comments No Sex and Gender Information Value Date Recorded Sex Assigned at Female 01/09/2023 7:40 AM CDT Legal Sex Female 12:35 AM CDT Gender Identity Female 01/09/2023 7:40 AM CDT Sexual Orientation Not on file COVID-19 Exposure Response Date Recorded In the last 10 days, have yo u been in contact with someone who was confirmed or suspected to have Coronavirus/COVID-19? No / Unsure 11/22/2022 9:28 AM CDT documented as of this encounter Miscellaneous Notes * Telephone Encounter - Luciana Terry RN - 12/07/2022 1:16 PM CDT Medication failed the protocol, provider to review and approve the medication order if appropriate. Requested Prescriptions Pending Prescriptions Disp Refills meloxicam (MOBIC) 15 MG Tablet [Pharmacy Med Name: MELOXICAM 15 MG TABLET] 90 Tablet 1 Sig: TAKE 1 TABLET BY MOUTH EVERY DAY NSAIDs Protocol Failed - 12/07/2022 12:42 AM Failed - Not delegated, patient not between 1 and 65 years of age Passed - Normal serum creatinine in past 12 months CREATININE, BLOOD Date Value Ref Range Status 11/17/2022 0.69 0.60 - 1.10 mg/dL Final Passed - Visit with relevant provider in past 12 months or upcoming 90 days Recent Visits Date Type Provider Dept 11/22/22 Office Visit Lien Thomas APRN, ACID WASHER OPERATOR [facility] 08/11/22 Office Visit Josi Haque MD [facility] 04/14/22 Office Visit Josi Haque MD [facility] Showing recent visits within past 365 days and meeting all other requirements Future Appointments Date Type Provider Dept 02/16/23 Appointment Josi Haque MD [facility] Showing future appointments within next 90 days and meeting all other requirements Passed - No matching NSAID med order in past 45 days No matching medication orders between 10/23/2022 1:16 PM and 12/07/2022 1:16 PM Passed - AST less than 55 or ALT less than 90 in past 12 months SGOT (AST) Date Value Ref Range Status 11/16/2022 24 <=32 U/L Final SGPT (ALT) Date Value Ref Range Status 11/16/2022 31 <=41 U/L Final Passed - HGB greater than 10 or HCT greater than 30 in past 12 months HEMOGLOBIN (HGB) Date Value Ref Range Status 11/17/2022 11.1 (L) 12.0 - 15.8 g/dL Final HEMATOCRIT (HCT) Date Value Ref Range Status 11/17/2022 35.8 (L) 36.0 - 47.0 % Final documented in this encounter Plan of Treatment Upcoming Encounters Date Type Department Care Team (Late st Contact Info) Description 07/19/2024 10:00 AM BOAT PILOT Office Visit [facility] Medical Group [facility] [address] [place] [address] Alvarez Nelson MD [address] [address] 10/07/2024 8:20 AM CDT Office Visit [facility] Oncology Services [address] [place] [address] Kevin Jin MD [address] [place] [address] Discharge Disposition: Discharged to home or Selfcare documented as of this encounter Visit Diagnoses Not on filedocumented in this encounter Additional Health Concerns Assessment Noted Time PHQ-9 Depression Total Score: 0 11/23/19 9:00 AM CDT documented as of this encounter Care Teams Gear Machine Operator Relationship Specialty Start Date End Date Josi Haque MD [address] [place] [address] PCP - General Family Medicine 04/07/15 05/07/23 Enmanuel Phipps MD [address] [place] [address] PCP - General Family Medicine 05/08/23 11/01/23 Afshan Blankenship, SCOW CAPTAIN, ACID WASHER OPERATOR [address] [place] [address] PCP - General Certified Nurse Practitioner 11/02/23 Maxim Barrios DPM [address] [place] [address] Podiatry 04/07/15 Alvarez Nelson MD [address] [address] Consulting Physician Endocrinology 03/14/22 Mike Cardozo MD [address] [address] Consulting Physician Colon and Rectal Surgery 07/15/22 documented as of this encounter
--- OUTSIDE RECORDS SUMMARY | 2024-07-04 10:20 | XMS_ITS | Encounter Summary ---
Author Organization [facility] Address [address] [place] [address] Phone Care Team Providers Care Earth Burner Name Role Phone Josi Haque MD Primary Care Provider [phone] Maxim Barrios DPM Unavailable [phone] Alvarez Nelson MD Unavailable Mike Cardozo MD Unavailable Enmanuel Phipps MD Primary Care Provider [phone] Afshan Blankenship APRN, [facility] Primary Care Provider [phone]- [phone] Reason for Visit * Reason Comments Medication Refill Encounter Details Date Type Department Care Team (Late st Contact Info) Description 09/18/2022 Refill [facility] Medical Group - Family Medicine [facility] [address] [place] [address] Josi Haque MD [address] [place] [address] Medication Refill Social History Tobacco Use Types Packs/Day Years Used Date Smoking Tobacco: Never Smokeless Tobacco: Never Alcohol Use Standard Drinks/Week Comments Yes 0 (1 standard drink = 0.6 oz pur e alcohol) occasionally PHQ-2 Answer Date Recorded Total Score - Questions 1-9 0 09/26 Sexually Active Control Partners Comments Not Currently Male Comments No Sex and Gender Information Value Date Recorded Sex Assigned at Female 01/09/2023 7:40 AM CDT Legal Sex Female 12:35 AM CDT Gender Identity Female 01/09/2023 7:40 AM CDT Sexual Orientation Not on file documented as of this encounter Miscellaneous Notes * Telephone Encounter - Luciana Terry RN - 09/19/2022 10:03 AM CDT Reordered 08/11/22 for 6 months - [facility] documented in this encounter Plan of Treatment Upcoming Encounters Date Type Department Care Team (Late st Contact Info) Description 07/19/2024 10:00 AM DRYWALL APPLICATOR Office Visit [facility] Medical Group - Endocrinology [facility] [address] [place] [address] Alvarez Nelson MD [address] [address] 10/07/2024 8:20 AM CDT [facility] [address] [place] [address] Kevin Jin MD [address] [place] [address] Discharge Disposition: Discharged to home or Selfcare documented as of this encounter Visit Diagnoses Not on filedocumented in this encounter Additional Health Concerns Assessment Noted Time PHQ-9 Depression Total Score: 0 10/09/19 10:00 AM CDT documented as of this encounter Care Teams Earth Burner Relationship Specialty Start Date End Date Josi Haque MD [address] [place] [address] PCP - General Family Medicine 04/07/15 05/07/23 Enmanuel Phipps MD [address] [place] [address] PCP - General Family Medicine 05/08/23 11/01/23 Afshan Blankenship, SOCIAL WORK INSTRUCTOR, SEPTIC TANK SETTER [address] [place] [address] PCP - General Certified Nurse Practitioner 11/02/23 Maxim Barrios DPM [address] [place] [address] Podiatry 04/07/15 Alvarez Nelson MD [address] [address] Consulting Physician Endocrinology 03/14/22 Mike Cardozo MD [address] [address] Consulting Physician Colon and Rectal Surgery 07/15/22 documented as of this encounter
--- OUTSIDE RECORDS SUMMARY | 2024-07-04 10:20 | XMS_ITS | Encounter Summary ---
Author Organization [facility] Address [address] [place] [address] Phone Care Team Providers Care Mortgage Loan Computation Clerk Name Role Phone Josi Haque MD Primary Care Provider [phone] Maxim Barrios DPM Unavailable [phone] Alvarez Nelson MD Unavailable Mike Cardozo MD Unavailable Enmanuel Phipps MD Primary Care Provider [phone] Afshan Blaknenship APRN, [facility] Primary Care Provider [phone] Reason for Visit * Reason Comments Medication Refill Encounter Details Date Type Department Care Team (Late st Contact Info) Description 04/12/2023 [facility] [address] [place] [address] Kevin Jin MD [address] [place], [place] [id number] Medication Refill Social History Tobacco Use Types Packs/Day Years Used Date Smoking Tobacco: Never Smokeless Tobacco: Never Alcohol Use Standard Drinks/Week Comments Yes 0 (1 standard drink = 0.6 oz pur e alcohol) occasionally PHQ-2 Answer Date Recorded Total Score - Questions 1-9 0 01/28 Education Answer Date Recorded What is the highest level of school you have completed or the highest degree you have received? Bachelor's degree (e.g., BA, AB, BS) 02/16/2023 Sexually Active Control Partners Comments Not Currently Male Comments No Sex and Gender Information Value Date Recorded Sex Assigned at Female 01/09/2023 7:40 AM CDT Legal Sex Female 12:35 AM CDT Gender Identity Female 01/09/2023 7:40 AM CDT Sexual Orientation Not on file documented as of this encounter Miscellaneous Notes * Telephone Encounter - Alejandra Torres RN - 04/12/2023 1:46 PM PLANNING ANALYST Pantoprazole refilled per Dr. Jin's last note. NING ANALYST documented in this encounter Plan of Treatment Upcoming Encounters Date Type Department Care Team (Late st Contact Info) Description 07/19/2024 10:00 AM PLANNING ANALYST Office Visit [facility] Medical Group - Endocrinology [facility] [address] [place] [address] Alvarez Nelson MD [address] [address] 10/07/2024 8:20 AM CDT [facility] [address] [place] [address] Kevin Jin MD [address] [place] [address] Discharge Disposition: Discharged to home or Selfcare documented as of this encounter Visit Diagnoses Not on filedocumented in this encounter Additional Health Concerns Assessment Noted Time PHQ-9 Depression Total Score: 0 02/17/20 8:50 AM CDT documented as of this encounter Care Teams Mortgage Loan Computation Clerk Relationship Specialty Start Date End Date Josi Haque MD [address] [place] [address] PCP - General Family Medicine 04/07/15 05/07/23 Enmanuel Phipps MD [address] [place] [address] PCP - General Family Medicine 05/08/23 11/01/23 Afshan Blankenship, CAMERA TECHNICIAN, ARSON INVESTIGATOR [address] [place] [address] PCP - General Certified Nurse Practitioner 11/02/23 Maxim Barrios DPM [address] [place] [address] Podiatry 04/07/15 Alvarez Nelson MD #[address] [phone] Consulting Physician Endocrinology 03/14/22 Mike Cardozo MD #[address] [address] Consulting Physician Colon and Rectal Surgery 07/15/22 documented as of this encounter
--- OUTSIDE RECORDS SUMMARY | 2024-07-04 10:20 | XMS_ITS | Referral Summary ---
Author Organization [facility] Address [address] [place] [address] Care Team Providers Care Metal Control Coordinator Name Role Phone Unavailable Primary Care Provider Unavailabl e Source Comments [facility],non-owned Affiliates and Associated Physician Practices is amultiple site organization consisting of ambulatory clinics and hospital sitesin [place], [place], [place] and [place]. This disclosure is being madepursuant to the Care Everywhere program and may not contain all information available regarding this patient. Last updated 18.[facility] [employer] Allergies Active Allergy Reactions Criticality Noted Date Comments Betaine Urticaria Medium 06/14/2018 Penicillins Urticaria Medium 04/07/2015 Sulfa Drugs Urticaria Medium 06/10/2019 Medications * Be aware that medications may not be up to date on this document. Alwaysverify current medications with the patient. Medication Sig Dispensed Refills Start Date End Date Status Zinc Gluconate (ZINC COLD THERAPY PO) Active omeprazole EC (PRILOSEC OTC) 20 MG tablet Take 1 tablet by mouth 2 times daily Active dulaglutide (TRULICITY) 1.5 MG/0.5ML injection Inject 1.5 mg subcutaneously every 7 days 03/06/2019 Active glipiZIDE (GLUCOTROL) 5 MG tablet Take 2.5 mg by mouth 2 times daily 03/06/2019 Active levothyroxine (SYNTHROID) 112 MCG tablet TAKE 1 TABLET BY MOUTH ONCE DAILY 12/25/2018 Active lisinopril (PRINIVIL; ZESTRIL) 40 MG tablet TAKE 1 TABLET BY MOUTH ONCE DAILY 03/28/2019 Active lovastatin (MEVACOR) 40 MG tablet Take 40 mg by mouth once daily 3 03/29/2019 Active metFORMIN (GLUCOPHAGE) 1000 MG tablet Take 1,000 mg by mouth 2 times daily with morning and evening meal 04/25/2018 Active metoprolol succinate XL 24hr (TOPROL XL) 50 MG tablet TAKE 1 TABLET BY MOUTH ONCE DAILY 07/09/2018 Active HYDROcodone-aceta minophen (NORCO) 7.5-325 MG tablet Take 1-2 tablets by mouth every 4 hours as needed 40 tablet 06/11/2019 Active Additional Information Patient not taking.Reported on 07/26/2019 cyclobenzaprine (FLEXERIL) 10 MG tablet Take 1 tablet by mouth 3 times daily as needed for Muscle Spasms 42 tablet 06/11/2019 Active Additional Information Patient not taking.Reported on 07/26/2019 DULoxetine (CYMBALTA) 20 MG capsule Take 1 capsule by mouth once daily 06/14/2019 Active Active Problems Problem Noted Date Diagnosed Date [...] Comments Blood Pressure 108/51 06/14/2019 8:37 AM PROPERTY AND CASUALTY INSURANCE AGENT Pulse 88 06/14/2019 8:37 AM PROPERTY AND CASUALTY INSURANCE AGENT Temperature 36.7 C (98.1 F) 06/14/2019 8:37 AM PROPERTY AND CASUALTY INSURANCE AGENT Respiratory Rate 20 06/14/2019 8:37 AM PROPERTY AND CASUALTY INSURANCE AGENT Oxygen Saturation 93% 06/14/2019 8:37 AM PROPERTY AND CASUALTY INSURANCE AGENT Inhaled Oxygen Concentration - - Weight 78.5 kg (173 lb) 07/26/2019 10:50 AM PROPERTY AND CASUALTY INSURANCE AGENT Height 154.9 cm (5' 1 ) 07/26/2019 10:50 AM PROPERTY AND CASUALTY INSURANCE AGENT Body Mass Index 32.69 07/26/2019 10:50 AM PROPERTY AND CASUALTY INSURANCE AGENT Plan of Treatment Not on file Procedures Procedure Name Priority Date/Time Associated Diagnosis Comments GLUCOSE - POINT OF CARE Routine 06/13/2019 8:04 AM PROPERTY AND CASUALTY INSURANCE AGENT from Last 3 Months or Most Recently Relevant to Health Maintenance Results * (ABNORMAL) GLUCOSE - POINT OF CARE (06/13/2019 8:04 AM PROPERTY AND CASUALTY INSURANCE AGENT) Glucose WB/POC 171(H) 70 - 106 mg/dL 06/13/2019 8:09 AM PROPERTY AND CASUALTY INSURANCE AGENT [facility] Specimen Type Arterial/C apillary 06/13/2019 8:09 AM PROPERTY AND CASUALTY INSURANCE AGENT [facility] Blood BLOOD SPECIMEN / Unknown 06/13/2019 8:04 AM PROPERTY AND CASUALTY INSURANCE AGENT 06/13/2019 8:09 AM PROPERTY AND CASUALTY INSURANCE AGENT Ravin Rose MD LAB - POINT OF CARE ORDERABLES [facility] [address] [place] [address] from Last 3 Months or Most Recently Relevant to Health Maintenance Advance Directives * Full Code (Latest Code Status on File) Date Activated Date Inactivated Comments 06/10/2019 9:09 PM 06/14/2019 11:16 AM
--- OUTSIDE RECORDS SUMMARY | 2024-07-04 10:20 | XMS_ITS | Encounter Summary ---
Author Organization [facility] Address [address] [place] [address] Phone Care Team Providers Care E Commerce Merchandising Coordinator Name Role Phone Josi Haque MD Primary Care Provider [phone] Maxim Barrios DPM Unavailable [phone] Alvarez Nelson MD Unavailable Mike Cardozo MD Unavailable Enmanuel Phipps MD Primary Care Provider [phone] Afshan Blankenship APRN, [facility] Primary Care Provider [phone]- [phone] Reason for Visit * Reason Comments Medication Refill Encounter Details Date Type Department Care Team (Late st Contact Info) Description 05/06/2020 Refill [facility] - [facility]ology - [place] [address] [place] [address] Alvarez Nelson MD [address] [address] Medication Refill Social History Tobacco Use Types Packs/Day Years Used Date Smoking Tobacco: Never Smokeless Tobacco: Never Alcohol Use Standard Drinks/Week Comments Yes 0 (1 standard drink = 0.6 oz pur e alcohol) occasionally PHQ-2 Answer Date Recorded PHQ-2 Score 0 02/01/2019 Sexually Active Control Partners Comments Not Currently Male Comments No Sex and Gender Information Value Date Recorded Sex Assigned at Female 01/09/2023 7:40 AM CDT Legal Sex Female 12:35 AM CDT Gender Identity Female 01/09/2023 7:40 AM CDT Sexual Orientation Not on file documented as of this encounter Miscellaneous Notes * Telephone Encounter - Soraida Mayo RN - 05/06/2020 2:08 PM VEGETABLE HANDLER Refill request received. Order pended. Requested Prescriptions Pending Prescriptions Disp Refills ??? Glucose Blood Strip [Pharmacy Med Name: Accu-Chek Karolina Plus In Vitro Strip] 200 Strip 0 Sig: Test twice daily. Next appt: 07/03/2020 TABLE HANDLER documented in this encounter Plan of Treatment Upcoming Encounters Date Type Department Care Team (Late st Contact Info) Description 07/19/2024 10:00 AM VEGETABLE HANDLER Office Visit [facility] - Endocrinology [facility] [address] [place] [address] Alvarez Nelson MD [address] [address] 10/07/2024 8:20 AM CDT [facility] [address] [place] [address] Kevin Jin MD [address] [place] [address] Discharge Disposition: Discharged to home or Selfcare documented as of this encounter Visit Diagnoses Diagnosis Type 2 diabetes mellitus with diabetic polyneuropathy, without long-term current use of insulin (HCC) documented in this encounter Additional Health Concerns Assessment Noted Time PHQ-9 Depression Total Score: 0 05/08/20 19 10:21 AM VEGETABLE HANDLER documented as of this encounter Care Teams E Commerce Merchandising Coordinator Relationship Specialty Start Date End Date Josi Haque MD [address] [place] [address] PCP - General Family Medicine 04/07/15 05/07/23 Enmanuel Phipps MD [address] [place] [address] PCP - General Family Medicine 05/08/23 11/01/23 Afshan Blankenship, STEAMBOAT INSPECTOR, ATTENDANT [employer] [address] [place] [address] PCP - General Certified Nurse Practitioner 11/02/23 Maxim Barrios DPM [address] [place] [address] Podiatry 04/07/15 Alvarez Nelson MD [address] [address] Consulting Physician Endocrinology 03/14/22 Mike Cardozo MD [address] [address] Consulting Physician Colon and Rectal Surgery 07/15/22 documented as of this encounter
--- OUTSIDE RECORDS SUMMARY | 2024-07-04 10:20 | XMS_ITS | Clinical Summary ---
Author Organization [facility] Address [address] [place] [address] Phone Care Team Providers Care Die Finisher Name Role Phone AKILA ARTIS MD Primary Care Provider [phone] Reason for Visit and Chief Complaint The Chief Complaint is: PT C/O PAIN IN BOTH EARS, HARD TO HEAR HAS BEEN GOING ON ABOUT A WEEK. ALSOHAS HAD A COUGH FOR 2-2 AND A HALF WEEKS Problems Includes: Problems addressed during this encounter and other active Problems All Visits Onset Date Resolved Date Provider Condition S tatus HYPERLIPIDEMIA NEC/NOS 01/13/2009 MORENITA ARTIS MD Active Last Documented On 9 11:48PM ; [facility] Essential Hypertension Benign 01/13/2009 AKILA ARTIS MD Active Last Documented On 1 9:22AM ; [facility] Diabetes Mellitus Type 2 10/12/2008 AKILA LAM MD Active Last Documented On 1 9:22AM ; [facility] HYPOTHYROIDISM NOS 10/12/2008 AKILA Vergara MD Active Last Documented On 9 11:33AM ; [facility] Plan of Treatment - The options include close observation - Last Documented On 03/25/2022 10:46AM ; [facility] - Watch for signs/symptoms of infection, return to the clinic if seen - Last Documented On 03/25/2022 10:46AM ; [facility] Take antibiotic as directed. She is allergic to penicillin-she reports that she has taken cephalosporin in the past. Call with worsening condition. - Last Documented On 03/25/2022 10:46AM ; [facility] Instructions to patient Watch for signs/symptoms of infection, return to the clinic if seen Last Documented On 2 10:43AM ; [facility] Assessments Includes: Assessments from this encounter Findings - Acute suppurative otitis media of both ears [Acute suppurative otitis media without spontaneous rupture of ear drum, bilateral] - Last Documented On 03/25/2022 10:46AM ; [facility] Instructions Includes: Instructions from this encounter Instructions to patient Watch for signs/symptoms of infection, return to the clinic if seen Last Documented On 2 10:43AM ; [facility] Medical Equipment - Implanted Devices Includes: Current Devices No Medical Equipment Recorded Medications Includes: Medications discussed during this encounter and other current Medications New / Renewed during this visit MARYANA RICE on 03/25/2022 Cefdinir 300 MG Oral Capsule Provider: MARYANA Wilson 7 day supply: 14 capsule, 0 refills Diagnosis: Acute suppr otitis media w/o spon rupt ear drum, bilateral 1 CAPSULE TWO TIMES A DAY Pharmacy: [address] [address] - Last Documented On 03/25/2022 10:36AM By Maryana MICHELLE ; [facility] Current Medications (continue as prescribed) traMADol HCl 50 MG Oral Tablet 07/08/2023 Provider: Diagnosis: Last Documented On 4 4:34PM By NERIS REED ; [facility] Meloxicam 15 MG Oral Tablet 07/08/2023 Provider: Diagnosis: Last Documented On 4 4:34PM By NERIS REED ; [facility] Meclizine HCl 12.5 MG Oral Tablet 07/08/2023 Provide r: Diagnosis: take 1 tab q 8 hrs prn Last Documented On 4 4:33PM By NERIS REED ; [facility] Lisinopril 40 MG Oral Tablet 07/08/2023 Provider: Diagnosis: Last Documented On 4 4:32PM By NERIS REED ; [facility] diazePAM 5 MG Oral Tablet 07/08/2023 Provider: Diagnosis: 1 tab q 8hrs prn Last Documented On 4 4:31PM By NERIS REED ; [facility] SM Zinc 50 MG Oral Tablet 07/08/2023 Provider: Diagnosis: Last Documented On 4 4:35PM By NERIS REED ; [facility] Trulicity 3 MG/0.5ML Subcutaneous Solution Pen-injecto r 07/08/2023 Provider: Diagnosis: 1.5 mg sub q once weekly Last Documented On 4 4:35PM By NERIS REED ; [facility] glipiZIDE XL 2.5 MG Oral Tablet Extended Release 24 Ho ur 07/08/2023 Provider: Diagnosis: Last Documented On 4 4:26PM By NERIS REED ; [facility] Atorvastatin Calcium 40 MG Oral Tablet 07/08/2023 Pr ovider: Diagnosis: Last Documented On 4 4:28PM By NERIS REED ; [facility] Azelastine HCl 0.1% Nasal Solution 07/08/2023 Provid er: Diagnosis: Last Documented On 4 4:31PM By NERIS REED ; [facility] Fluticasone Propionate 50 MCG/ACT Nasal Suspension 02/2024 Provider: Diagnosis: spraay 1-2 sprays in each nostril daily prn Last Documented On 4 4:33PM By NERIS REED ; [facility] Pantoprazole Sodium 40 MG Oral Tablet Delayed Release 07/08/2023 Provider: Diagnosis: Last Documented On 4 4:34PM By NERIS REED ; [facility] Levothyroxine Sodium 112 MCG Oral Tablet 03/22/2022 Provider: JOSE LUIS MESA MD Diagnosis: Last Documented On 03/25/2022 10:18AM By Kristel Miller MA ; [facility] DULoxetine HCl 20 MG Oral Ca psule Delayed Release Particles 03/22/2022 Provider: JOSE LUIS MESA MD Diagnosis: Last Documented On 03/25/2022 10:18AM By Kristel Miller MA ; [facility] metFORMIN HCl 1000 MG Oral Tablet 03/16/2022 Provide r: LENORE KAY MD Diagnosis: Last Documented On 03/25/2022 10:18AM By Kristel Miller MA ; [facility] Latanoprost 0.005% Ophthalmic Solution 03/09/2022 Pr ovider: Diagnosis: Last Documented On 03/25/2022 10:18AM By Kristel Miller MA ; [facility] Past Medications on file Erythromycin 5 MG/GM Ophthalmic Ointment 07/08/2023 - 07/15/2023 Provider: KANDICE SWANSON DNP Diagnosis: Hordeolum chief of safety and protection um unspecified eye, 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 Apply small ribon to left ey e up to 6 times per day for 7 days Last Documented On 4 4:42PM By Kandice Swanson DNP ; [facility] Levaquin 500 MG OR TABS 05/02/2011 - 05/12/2011 Provid er: EDWINA MORGAN PA-C Diagnosis: ACUTE SINUSITIS NOS Last Documented On 05/02/2011 3:37PM By EDWINA MORGAN PA-C ; [facility] Diflucan 150 MG OR TABS 04/27/2011 - 05/04/2011 Provider: EDWINA Wilson Diagnosis: CANDIDIASIS SITE NOS TAKE ONE TABLET BY MOUTH EVERY DAY FOR 7 DAYS Last Documented On 04/27/2011 8:48AM By EDWINA MORGAN PA-C ; [facility] Cipro 250 MG OR TABS 04/05/2011 - 04/12/2011 Provider: AKILA ARTIS MD Diagnosis: 1 BID X 7DAYS Last Documented On 04/05/2011 1:17PM By Candy REED ; [facility] Lovastatin 10 MG OR TABS 11/25/2010 - 11/20/2011 Provi jim: AKILA ARTIS MD Diagnosis: TAKE ONE TABLET BY MOUTH AT BEDTIME Last Documented On 11/25/2010 11:23AM By Candy REED ; [facility] Zithromax Z-Shawn 250 MG OR TABS 05/26/2010 - 05/31/2010 Provider: AKILA QUEEN MD Diagnosis: Last Documented On 0 9:08AM By AKILA ARTIS MD ; [facility] Zithromax Z-Shawn 250 MG OR TABS 05/26/2010 - 06/05/2010 Provider: AKILA QUEEN MD Diagnosis: PLEASE GIVE HER A REFILL Last Documented On 0 9:08AM By AKILA ARTIS MD ; [facility] Flagyl 500 MG OR TABS 11/04/2009 - 11/11/2009 Provider : EDWINA MORGAN PA-C Diagnosis: VAGINITIS Last Documented On 11/04/2009 9:40AM By EDWINA MORGAN PA-C ; [facility] Nystatin 650553 UNIT/GM EX CREA 11/04/2009 - 12/04/2009 Provider: EDWINA Wilson Diagnosis: CANDIDIASIS SITE NOS apply to affected area tid-qid Last Documented On 11/04/2009 9:39AM By EDWINA MORGAN PA-C ; [facility] Diflucan 150 MG OR TABS 11/04/2009 - 11/11/2009 Provider: EDWINA Wilson Diagnosis: CANDIDIASIS SITE NOS one po for 7 days Last Documented On 11/04/2009 9:39AM By EDWINA MORGAN PA-C ; [facility] Lovastatin 10 MG OR TABS 10/20/2009 - 10/15/2010 Provi jim: AKILA ARTSI MD Diagnosis: 1HS - TAKE ONE TABLET BY MOUTH AT BEDTIME Last Documented On 10/20/2009 12:12PM By Candy REED ; [facility] Diflucan 150 MG OR TABS 09/28/2009 - 09/29/2009 Provid er: EDWINA MORGAN PA-C Diagnosis: FF - TAKE 1 TABLET BY MOUTH NOW Last Documented On 09/28/2009 3:09PM By EDWINA MORGAN PA-C ; [facility] Amaryl 4 MG OR TABS 02/04/2009 - 04/05/2009 Provider: AKILA HOOK M.D. Diagnosis: Last Documented On 02/04/2009 11:46AM By PRADEEP VELAZQUEZ ; [facility] Levothyroxine Sodium 125 MCG OR TABS 02/04/2009 - 04/05/2009 Provider: AKILA Canela Diagnosis: PRAMOD IN 6 WKS Last Documented On 02/04/2009 11:46AM By PRADEEP VELAZQUEZ ; [facility] Lotrisone 1-0.05% EX CREA 01/19/2009 - 02/18/2009 Prov ider: AKILA ARTIS MD Diagnosis: Last Documented On 9 1:10PM By AKILA ARTIS MD ; [facility] Mobic 15 MG OR TABS 01/13/2009 - 02/12/2009 Provider: Diagnosis: Last Documented On 9 3:56PM By AKILA ARTIS MD ; [facility] Medications Administered Includes: Administered Medications from this encounter No Administered Medications Recorded Vital Signs Includes: Vital Signs from this encounter Vital Name 03/25/2022 10:19A Pulse Rate-Sitting (bpm) 87 Respiration Rate (breaths/min) 19 Temp-Oral (F) 98.9 Height (in) 61 Weight (lb) 173.2 Body Mass Index 32.7 Body Surface Area 1.8 Oxygen Saturation (%) 98 Last Documented: On 03/25/2022 10:21A M ; [facility] Results Includes: Results discussed during this encounter No Results Recorded For Specified Dates History of Present Illness Includes: History of Present Illness from this encounter MARLENE HWANG is a 66 year old female. - Allergy list reviewed - Medication list reviewed - Not feeling poorly (malaise) - No fever - No chills - No headache - No sinus pain - No swollen glands in the neck - Earache in right ear - In left ear - The ears feel pressured on the right - On the left - Nasal discharge - No postnasal drip - No nasal passage blockage (stuffiness) - No sneezing - No nasal itching - No sore throat - No chest pain or discomfort - Cough - No dyspnea - No wheezing - Normal appetite - No nausea - No vomiting - No abdominal pain - No diarrhea Moy is a 66-year-old female patient that presented to the walk-in clinic for bilateral ear pain and pressure that has been going on for approximately one week. She reports that she has had a cough with some nasal drainage for the past two weeks. She denies any fever. She has been taking OTC medication for symptoms. Social History Description Last Updated Tobacco non-user 03/25/2022 Last Documented On 2 10:46AM ; [facility] Smoking Status Unknown Procedures and Surgical History Includes: Procedures from this encounter Procedures Code Diagnosis Performing Provider Service L ocation Service Date Pt to use OTC fever/pain product as needed per product instruction.~ Last Documented On 2 10:43AM ; [facility] plan of care reviewed and agreed to Last Documented On 2 10:43AM ; [facility] use of tobacco assessment performed 1000F Last Documented On 2 10:19AM ; [facility] Medical History Includes: Medical History addressed during this encounter Description Last Updated Taking OTC medications 03/25/2022 Last Documented On 2 10:46AM ; [facility] Family History Includes: Family History addressed during this encounter No Family History Recorded Review of Systems Includes: Review of Systems from this encounter Systemic: No fever. Head: No headache. Otolaryngeal: Earache. No discharge from the ears. Nasal discharge. No sore throat. Cardiovascular: No chest pain or discomfort. Pulmonary: Cough. No wheezing. Gastrointestinal: No vomiting, no abdominal pain, and no diarrhea. Neurological: No dizziness. Skin: No skin lesions. Mental Status Includes: Mental Status from this encounter No Mental Status Recorded Functional Status Includes: Functional Status from this encounter No Functional Status Recorded Physical Exam Includes: Physical Exam from this encounter Allergies Includes: Active Allergies Substance Type Reaction Onset Date Resolved Date Statu s Penicillins Allergy 10/12/2008 Active Last Documented On 4 4:35PM ; [facility] Encounters Encounter Provider Location Date Check-In Time Check-Out Time Diagnosis WALK IN PATIENT - ESTABLISHED PT MARYANA RICE [facility] 03/25/20 22 9:54AM 10:21AM Otitis Media Acute Suppurative Both Ears Insurance Includes: Active Insurance Policies Plan Name Member ID Group # Subscriber Relationship Effect gretchen Dates 1 - MEDICARE PART A CLAIMS/NGS [id number] MOY Noyola WOELFEL Self 2 - [facility] [id number] MOY HWANG Self Clinical Notes Includes: Clinical Notes from this encounter No Clinical Notes Recorded
--- OUTSIDE RECORDS SUMMARY | 2024-07-04 10:20 | XMS_ITS | Clinical Summary ---
Author Organization [facility] Address [address] [place] [address] Care Team Providers Care Washing And Screening Plant Supervisor Name Role Phone Unavailable Primary Care Provider Unavailabl e Source Comments [facility],non-owned Affiliates and Associated Physician Practices is amultiple site organization consisting of ambulatory clinics and hospital sitesin [place], [place], [place] and [place]. This disclosure is being madepursuant to the Care Everywhere program and may not contain all information available regarding this patient. Last updated 18.[facility] Allergies Active Allergy Reactions Criticality Noted Date [...] Comments Blood Pressure 108/51 06/14/2019 8:37 AM EPIC CUPID ANALYST Pulse 88 06/14/2019 8:37 AM EPIC CUPID ANALYST Temperature 36.7 C (98.1 F) 06/14/2019 8:37 AM EPIC CUPID ANALYST Respiratory Rate 20 06/14/2019 8:37 AM EPIC CUPID ANALYST Oxygen Saturation 93% 06/14/2019 8:37 AM EPIC CUPID ANALYST Inhaled Oxygen Concentration - - Weight 78.5 kg (173 lb) 07/26/2019 10:50 AM EPIC CUPID ANALYST Height 154.9 cm (5' 1 ) 07/26/2019 10:50 AM EPIC CUPID ANALYST Body Mass Index 32.69 07/26/2019 10:50 AM EPIC CUPID ANALYST Plan of Treatment Health Maintenance Due Date Last Done Comments BONE DENSITY TESTING 1955 COLOGUARD (AGES 45-75) - COLON CA SCREENING 1955 COLON MONITORING 1955 COLONOSCOPY - COLON CA SCREENING 1954 CT COLONOGRAPHY - COLON CA SCREENING 1955 Colorectal Cancer Screening 1955 FIT - COLON CA SCREENING 1954 FLEX SIG - COLON CA SCREENING 1955 MAMMOGRAM 1955 MEDICARE AWV 12 MONTHS 1955 HEPATITIS C SCREENING 07/24/1972 DTAP/TDAP/TD VACCINES (1 - Tdap) 1973 PNEUMOCOCCAL VACCINE 50+ (1 of 1 - PCV) 2004 ZOSTER VACCINE (1 of 2) 2004 SCREENING FOR DIABETES 06/13/2022 0, 06/13/2019, 06/13/2019, Additional history exists COVID-19 VACCINE ( - 2023- season) 2024 INFLUENZA VACCINE (#1) 2024 9, 02/26/2018, 02/17/2016, Additional history exists DEPRESSION SCREENING 05/29/2024 Respiratory Syncytial Virus (RSV) Vaccine Pt: or over 60 yrs (1 - 1-dose 75+ series) 2029 HEPATITIS B VACCINE Aged Out No longe r eligible based on patient's age to complete this topic HIB VACCINE Aged Out No longer eligi ble based on patient's age to complete this topic HPV VACCINE Aged Out No longer eligi ble based on patient's age to complete this topic MENINGOCOCCAL (Group B) VACCINE Aged Out No longer eligible based on patient's age to complete this topic MENINGOCOCCAL VACCINE Aged Out No jayce salvatore eligible based on patient's age to complete this topic Procedures Procedure Name Priority Date/Time Associated Diagnosis Comments GLUCOSE - POINT OF CARE Routine 06/13/2019 8:04 AM EPIC CUPID ANALYST from Last 3 Months or Most Recently Relevant to Health Maintenance Results * (ABNORMAL) GLUCOSE - POINT OF CARE (06/13/2019 8:04 AM EPIC CUPID ANALYST) Glucose WB/POC 171(H) 70 - 106 mg/dL 06/13/2019 8:09 AM EPIC CUPID ANALYST [facility] Specimen Type Arterial/C apillary 06/13/2019 8:09 AM EPIC CUPID ANALYST [facility] Blood BLOOD SPECIMEN / Unknown 06/13/2019 8:04 AM EPIC CUPID ANALYST 06/13/2019 8:09 AM EPIC CUPID ANALYST Ravin Rose MD LAB - POINT OF CARE ORDERABLES [facility] [address] [place] [address] from Last 3 Months or Most Recently Relevant to Health Maintenance Advance Directives * Full Code (Latest Code Status on File) Date Activated Date Inactivated Comments 06/10/2019 9:09 PM 06/14/2019 11:16 AM
--- OUTSIDE RECORDS SUMMARY | 2024-07-04 10:20 | XMS_ITS ---
Care Plan - [facility] Created on: July 04, 2024 MOY HWANG : 1955 Sex: Female Author Organization [facility] Address [address] [place] [address] Phone Care Team Providers Care Telephone Directory Distributor Driver Name Role Phone AKILA ARTIS MD Primary Care Provider [phone]
--- OUTSIDE RECORDS SUMMARY | 2024-07-04 10:21 | XMS_ITS | Encounter Summary ---
Author Organization [facility] Address [address] [place] [address] Phone Care Team Providers Care Concrete Buster Operator Name Role Phone Maxim Barrios DPM Unavailable Alvarez Nelson MD Unavailable Mike Cardozo MD Unavailable Enmanuel Phipps MD Primary Care Provider [phone] Afshan Blankenship APRN, BROADCAST JOURNALIST Primary Care Provider [phone] Reason for Visit * Reason Comments Medication Refill Encounter Details Date Type Department Care Team (Late st Contact Info) Description 10/02/2023 Refill [facility] - Endocrinology - [place] [address] [place] [address] Alvarez Nelson MD [address] [address] Medication Refill Social History Tobacco Use Types Packs/Day Years Used Date Smoking Tobacco: Never Smokeless Tobacco: Never Alcohol Use Standard Drinks/Week Comments Yes 0 (1 standard drink = 0.6 oz pur e alcohol) occasionally [facility] Utilities Answer Date Recorded In the past 12 months has th e electric, gas, oil, or water [employer] threatened to shut off services in your home? No 07/27/2023 Social Connection and Isolat ion Panel [NHANES] Answer Date Recorded In a typical week, how many times do you talk on the phone with family, friends, or neighbors? Twice a week 07/27/2023 How often do you get togethe r with friends or relatives? Once a week 07/27/2023 How often do you attend chur or congregational services? More than 4 times per year 07/27/2023 Do you belong to any clubs o r organizations such as uatsdin groups, unions, fraternal or athletic groups, or school groups? No 07/27/2023 How often do you attend meet ings of the clubs or organizations you belong to? Patient declined 07/27/2023 Are you , , di vorced, , never , or living with a partner? 07/27/2023 AUDIT-C Answer Date Recorded Q1: How often do you have a drink containing alc ohol? 2-3 times a week 07/27/2023 Q2: How many drinks containi ng alcohol do you have on a typical day when you are drinking? 3 or 4 07/27/2023 Q3: How often do you have si x or more drinks on one occasion? Monthly 07/27/2023 Overall Financial Resource Strain (CARDIA) Answe r Date Recorded How hard is it for you to pa y for the very basics like food, housing, medical care, and heating? Not hard at all 07/27/2023 PHQ-2 Answer Date Recorded Total Score - Questions 1-9 0 01/28 [facility] - Occupational Stress Questionnaire Answer Date Recorded Do you feel stress - tense, restless, nervous, or anxious, or unable to sleep at night because your mind is troubled all the time - these days? Not at all 07/27/2023 Exercise Vital Sign Answer Date Recorde d On average, how many days pe r week do you engage in moderate to strenuous exercise (like a brisk walk)? 1 day 07/27/2023 On average, how many minutes do you engage in exercise at this level? 10 min 07/27/2023 Hunger Vital Sign Answer Date Recorded Within the past 12 months, y ou worried that your food would run out before you got the money to buy more. Never true 07/27/19 24 Within the past 12 months, t he food you bought just didn't last and you didn't have money to get more. Never true 07/27/2023 PRAPARE - Transportation Answer Date Re corded In the past 12 months, has l ack of transportation kept you from medical appointments or from getting medications? No 06/30 In the past 12 months, has l ack of transportation kept you from meetings, work, or from getting things needed for daily living? No 07/27/2023 Housing Stability Vital Sign Answer Martin e Recorded In the last 12 months, was t here a time when you were not able to pay the mortgage or rent on time? No 07/27/2023 In the last 12 months, how many places have you lived? 1 07/27/2023 In the last 12 months, was t here a time when you did not have a steady place to sleep or slept in a fdc (including now)? No 07/27/2023 Education Answer Date Recorded What is the [...] Miscellaneous Notes * Telephone Encounter - Soraida Mayo, RN - 10/02/2023 8:44 AM CDT Medication(s) refilled and signed per [facility] Chronic Medication Refill Standing Order for Pediatric and Adult Patients. documented in this encounter Plan of Treatment Upcoming Encounters Date Type Department Care Team (Late st Contact Info) Description 07/19/2024 10:00 AM FACILITIES PLANT ENGINEER Office Visit [facility] - Endocrinology - [place] [address] [place] [address] Alvarez Nelson MD [address] [address] 10/07/2024 8:20 AM CDT Office Visit [facility] - Cancer Center Oncology Services [address] [place] [address] Kevin Jin MD [address] [place] [address] Discharge Disposition: Discharged to home or Selfcare documented as of this encounter Visit Diagnoses Not on filedocumented in this encounter Additional Health Concerns Assessment Noted Time PHQ-9 Depression Total Score: 0 02/17/20 8:50 AM CDT documented as of this encounter Care Teams Concrete Buster Operator Relationship Specialty Start Date End Date Enmanuel Phipps MD [address] [place] [address] PCP - General Family Medicine 05/08/23 11/01/23 Afshan Blankenship, COMMERCIAL COLLECTIONS SPECIALIST, BROADCAST JOURNALIST [address] [place] [address] PCP - General Certified Nurse Practitioner 11/02/23 Maxim Barrios DPM Podiatry 04/07/15 Alvarez Nelson MD [address] [address] Consulting Physician Endocrinology 03/14/22 Mike Cardozo MD [address] [address] Consulting Physician Colon and Rectal Surgery 07/15/22 documented as of this encounter
--- OUTSIDE RECORDS SUMMARY | 2024-07-04 10:21 | XMS_ITS | Encounter Summary ---
Author Organization [facility] Address [address] [place] [address] Phone Care Team Providers Care Radio Despatcher Name Role Phone Maxim Barrios DPM Unavailable [phone] Alvarez Nelson MD Unavailable Mike Cardozo MD Unavailable Enmanuel Phipps MD Primary Care Provider [phone] Afshan Blankenship APRN, RESOURCING CONSULTANT Primary Care Provider [phone] Reason for Visit * Reason Comments Medication Refill Encounter Details Date Type Department Care Team (Late st Contact Info) Description 08/22/2023 Refill [facility] - Family Medicine [facility] [address] [place] [address] Josi Haque MD [address] [place] [address] Medication Refill Social History Tobacco Use Types Packs/Day Years Used Date Smoking Tobacco: Never Smokeless Tobacco: Never Alcohol Use Standard Drinks/Week Comments Yes 0 (1 standard drink = 0.6 oz pur e alcohol) occasionally [facility] Utilities Answer Date Recorded In the past 12 months has th e electric, gas, oil, or water [employer] threatened to shut off services in your [...] How often do you attend chur or muslim services? More than 4 times per year 07/27/2023 Do you belong to any clubs o r organizations such as islam groups, unions, fraternal or athletic groups, or [...] Total Score - Questions 1-9 0 01/28 [facility] - Occupational Stress [...] place to sleep or slept in a mcc (including now)? No 07/27/2023 Education Answer Date [...] Telephone Encounter - Luciana Terry RN - 08/22/2023 8:50 AM CDT Medication(s) refilled and signed per [facility] Chronic Medication Refill Standing Order for Pediatricand Adult Patients. Requested Prescriptions Pending Prescriptions Disp Refills lisinopril (PRINIVIL, ZESTRIL) 40 MG Tablet [Pharmacy Med Name: LISINOPRIL 40 MG TABLET] 90 Tablet 1 Sig: TAKE 1 TABLET BY MOUTH EVERY DAY LAMBERT Inhibitors Protocol Passed - 08/22/2023 12:48 AM Passed - Serum potassium on record in past 12 months POTASSIUM Date Value Ref Range Status 06/30/2023 4.3 3.5 - 5.1 mmol/L Final Passed - Blood pressure on record in past 12 months Clinician-entered: BP Readings from Last 3 Encounters: 07/27/23 (!) 194/100 07/18/23 126/78 04/11/23 126/62 Patient-entered: No data recorded Passed - Visit with relevant provider in past 12 months or upcoming 90 days Recent Visits Date Type Provider Dept 07/27/23 Office Visit Enmanuel Phipps MD [facility] 02/16/23 Office Visit Josi Haque MD [facility] 11/22/22 Office Visit Lien Thomas, SENIOR RESTAURANT MANAGER, RESOURCING CONSULTANT [facility] Showing recent visits within past 365 days and meeting all other requirements Future Appointments No visits were found meeting these conditions. Showing future appointments within next 90 days and meeting all other requirements Passed - GFR on record in past 12 months GFR, EST. 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 [address] [place] [phone] Kevin Jin MD [address] [place] [address] Discharge Disposition: Discharged to home or Selfcare documented as of this encounter Visit Diagnoses Diagnosis Essential hypertension Unspecified essential hypertension documented in this encounter Additional Health Concerns Assessment Noted Time PHQ-9 Depression Total Score: 0 02/17/20 23 8:50 AM CDT documented as of this encounter Care Teams Radio Despatcher Relationship Specialty Start Date End Date Enmanuel Phipps MD [address] [place] [address] PCP - General Family Medicine 05/08/23 11/01/23 Afshan Blankenship, SENIOR RESTAURANT MANAGER, RESOURCING CONSULTANT [address] [place] [address] PCP - General Certified Nurse Practitioner 11/02/23 Maxim Barrios DPM Podiatry 04/07/15 Alvarez Nelson MD [address] [address] Consulting Physician Endocrinology 03/14/22 Mike Cardozo MD [address] [address] Consulting Physician Colon and Rectal Surgery 07/15/22 documented as of this encounter
--- OUTSIDE RECORDS SUMMARY | 2024-07-04 10:21 | XMS_ITS | Clinical Summary ---
Author Organization [facility] Address [address] [place] [address] Phone Care Team Providers Care Waterproofing Machine Operator Name Role Phone AKILA ARTIS MD Primary Care Provider [phone] Reason for Visit and Chief Complaint The Chief Complaint is: Left eye sty, red and swollen under the eye Problems Includes: Problems addressed during this encounter and other active Problems All Visits Onset Date Resolved Date Provider Condition S tatus HYPERLIPIDEMIA NEC/NOS 01/13/2009 MORENITA ARTIS MD Active Last Documented On 9 11:48PM ; [facility] Essential Hypertension Benign 01/13/2009 AKILA ARTIS MD Active Last Documented On 1 9:22AM ; [facility] Diabetes Mellitus Type 2 10/12/2008 AKILA LAM MD Active Last Documented On 1 9:22AM ; [facility] HYPOTHYROIDISM NOS 10/12/2008 AKILA Vergara MD Active Last Documented On 9 11:33AM ; [facility] Plan of Treatment Use erythromycin ointment as directed. Apply warm compress to the eye BID to help with tenderness and swelling. Discussed signs and symptoms of worsening infection and advised patient to follow up as needed. Patient voiced understanding to the above plan and teaching. - Last Documented On 07/08/2023 5:08PM ; [facility] Assessments Includes: Assessments from this encounter Findings - [H00.019 - Hordeolum externum unspecified eye, 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] Hordeolum externum of lower eyelid - Last Documented On 07/08/2023 5:08PM ; [facility] Medical Equipment - Implanted Devices Includes: Current Devices No Medical Equipment Recorded Medications Includes: Medications discussed during this encounter and other current Medications Discontinued / Stopped on this date [employer] SOFTWARE QUALITY ASSURANCE ANALYST-BC on 11/08/2022 Mupirocin 2% External Ointment Provider: TALAT [employer] SOFTWARE QUALITY ASSURANCE ANALYST-BC Diagnosis: Furuncle right h and Last Documented On 4 4:26PM By NERIS REED ; [facility] Sulfamethoxazole-Trimethopri m 800-160 MG Oral Tablet Provider: TALAT [employer] SOFTWARE QUALITY ASSURANCE ANALYST-BC Diagnosis: Furuncle right h and Last Documented On 4 4:26PM By NERIS REED ; [facility] glipiZIDE 5 MG Oral Tablet Provider: Brandy KAY MD Diagnosis: Last Documented On 4 4:26PM By NERIS REED ; [facility] Pioglitazone HCl 30 MG Oral Tablet Provid er: LENORE KAY MD Diagnosis: Last Documented On 4 4:27PM By NERIS REED ; [facility] Atorvastatin Calcium 20 MG Oral Tablet Pr ovider: JOSE LUIS MESA MD Diagnosis: Last Documented On 4 4:27PM By NERIS REED ; [facility] Metoprolol Succinate ER 50 M G Oral Tablet Extended Release 24 Hour Provider: JOSE LUIS REDMAN MD Diagnosis: Last Documented On 4 4:30PM By NERIS REED ; [facility] Spironolactone 50 MG OR TABS Provider: AKILA ARTIS MD Diagnosis: Last Documented On 4 4:29PM By NERIS REED ; [facility] Metoprolol Succinate ER 25 MG OR TB24 Pro vider: AKILA ARTIS MD Diagnosis: Last Documented On 4 4:29PM By NERIS REED ; [facility] Nix Complete Lice System 1% EX LIQD Provi jim: AKILA ARTIS MD Diagnosis: Last Documented On 4 4:29PM By NERIS REED ; [facility] Magnesium Oxide 400 MG OR TABS Provider: AKILA ARTIS MD Diagnosis: CRAMP IN LIMB Last Documented On 4 4:29PM By NERIS REED ; [facility] Levothyroxine Sodium 125 MCG OR TABS Prov ider: AKILA ARTIS MD Diagnosis: Last Documented On 4 4:29PM By NERIS REED ; [facility] Mobic 15 MG OR TABS Provider: AKILA PIMENTEL MD Diagnosis: Last Documented On 4 4:29PM By NERIS REED ; [facility] metFORMIN HCl 500 MG TABS Provider: JOSE DANIEL ARTIS MD Diagnosis: Last Documented On 4 4:30PM By NERIS REED ; [facility] Amaryl 4 MG OR TABS Provider: AKILA PIMENTEL MD Diagnosis: Last Documented On 4 4:30PM By NERIS REED ; [facility] Toprol XL 25 MG OR TB24 Provider: ARELY ARTIS MD Diagnosis: Last Documented On 4 4:30PM By NERIS REED ; [facility] New / Renewed during this visit KANDICE SWANSON DNP on 07/08/2023 Erythromycin 5 MG/GM Ophthalmic Ointment Provider: KANDICE Hook NP 7 day supply: 3.5 gram, 0 refills Diagnosis: Hordeolum externum unspecified eye, 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 Apply small ribon to left ey e up to 6 times per day for 7 days Pharmacy: [address], [address] - Last Documented On 4 4:42PM By Kandice Swanson DNP ; [facility] Current Medications (continue as prescribed) traMADol HCl 50 MG Oral Tablet 07/08/2023 Provider: Diagnosis: Last Documented On 4 4:34PM By NERIS REED ; [facility] Meloxicam 15 MG Oral Tablet 07/08/2023 Provider: Diagnosis: Last Documented On 4 4:34PM By NERIS REED ; [facility] Meclizine HCl 12.5 MG Oral Tablet 07/08/2023 Provide r: Diagnosis: take 1 tab q 8 hrs prn Last Documented On 4 4:33PM By NERIS REED ; [facility] Lisinopril 40 MG Oral Tablet 07/08/2023 Provider: Diagnosis: Last Documented On 4 4:32PM By NERIS REED ; [facility] diazePAM 5 MG Oral Tablet 07/08/2023 Provider: Diagnosis: 1 tab q 8hrs prn Last Documented On 4 4:31PM By NERIS REED ; [facility] Zinc 50 MG Oral Tablet 07/08/2023 Provider: Diagnosis: Last Documented On 4 4:35PM By NERIS REED ; [facility] Trulicity 3 MG/0.5ML Subcutaneous Solution Pen-injecto r 07/08/2023 Provider: Diagnosis: 1.5 mg sub q once weekly Last Documented On 4 4:35PM By NERIS REED ; [facility] glipiZIDE XL 2.5 MG Oral Tablet Extended Release 24 Ho ur 07/08/2023 Provider: Diagnosis: Last Documented On 4 4:26PM By NERIS REED ; [facility] Atorvastatin Calcium 40 MG Oral Tablet 07/08/2023 Pr ovider: Diagnosis: Last Documented On 4 4:28PM By NERIS REED ; [facility] Azelastine HCl 0.1% Nasal Solution 07/08/2023 Provid er: Diagnosis: Last Documented On 4 4:31PM By NERIS REED ; [facility] Fluticasone Propionate 50 MCG/ACT Nasal Suspension 02/2024 Provider: Diagnosis: spraay 1-2 sprays in each nostril daily prn Last Documented On 4 4:33PM By NERIS REED ; [facility] Pantoprazole Sodium 40 MG Oral Tablet Delayed Release 07/08/2023 Provider: Diagnosis: Last Documented On 4 4:34PM By NERIS REED ; [facility] Levothyroxine Sodium 112 MCG Oral Tablet 03/22/2022 Provider: JOSE LUIS MESA MD Diagnosis: Last Documented On 03/25/2022 10:18AM By Kristel Miller MA ; [facility] DULoxetine HCl 20 MG Oral Ca psule Delayed Release Particles 03/22/2022 Provider: JOSE LUIS MESA MD Diagnosis: Last Documented On 03/25/2022 10:18AM By Kristel Miller MA ; [facility] metFORMIN HCl 1000 MG Oral Tablet 03/16/2022 Provide r: LENORE KAY MD Diagnosis: Last Documented On 03/25/2022 10:18AM By Kristel Miller MA ; [facility] Latanoprost 0.005% Ophthalmic Solution 03/09/2022 Pr ovider: Diagnosis: Last Documented On 03/25/2022 10:18AM By Kristel Miller MA ; [facility] Medications Administered Includes: Administered Medications from this encounter No Administered Medications Recorded Vital Signs Includes: Vital Signs from this encounter Vital Name 07/08/2023 04:24P Blood Pressure Sitting (mmHg) 146/82 Pulse Rate-Sitting (bpm) 86 Temp-Oral (F) 98.3 Height (in) 61 Weight (lb) 166 Body Mass Index 31.4 Body Surface Area 1.7 Oxygen Saturation (%) 96 Last Documented: On 07/08/2023 4:24PM ; [facility] Results Includes: Results discussed during this encounter No Results Recorded For Specified Dates History of Present Illness Includes: History of Present Illness from this encounter MARLENE HWANG is a 67 year old female. - Allergy list reviewed - Medication list reviewed - Feeling fine - No fever - No chills - Redness of left lower eyelid - Swollen left eyelid - No ear symptoms - No nasal passage blockage (stuffiness) - No sore throat - No chest pain or discomfort - No dyspnea - No cough Moy presents to the clinic with the above reported symptoms that first started this morning. Patient denies any fever, chills, or other associated symptoms. Social History Description Last Updated Not a current smoker 07/08/2023 Last Documented On 5:08PM ; [facility] Smoking Status Unknown Medical History Includes: Medical History addressed during this encounter Description Last Updated No Contact with and (Suspected) exposure to COVID-19 07/08/2023 Last Documented On 4 5:08PM ; [facility] No fall 07/08/2023 Last Documented On 4 5:08PM ; [facility] Family History Includes: Family History addressed during this encounter No Family History Recorded Review of Systems Includes: Review of Systems from this encounter Systemic: Not feeling poorly (malaise). No fever and no chills. Head: No headache and no sinus pain. Eyes: Eye symptoms. No vision problems. Redness of left lower eyelid, swollen left eyelid, and eyelids swollen and tender. Otolaryngeal: No earache, no nasal discharge, and no sore throat. Cardiovascular: No chest pain or discomfort. Pulmonary: No dyspnea and no cough. Mental Status Includes: Mental Status from this encounter No Mental Status Recorded Functional Status Includes: Functional Status from this encounter No Functional Status Recorded Physical Exam Includes: Physical Exam from this encounter Allergies Includes: Active Allergies Substance Type Reaction Onset Date Resolved Date Statu s Penicillins Allergy 10/12/2008 Active Last Documented On 4 4:35PM ; [facility] Encounters Encounter Provider Location Date Check-In Time Check-Out Time Diagnosis WALK IN PATIENT - ESTABLISHED PT KANDICE SWANSON DNP [facility] 07/08/19 24 3:31PM 4:36PM Hordeolum Externum Lower Eyelid Insurance Includes: Active Insurance Policies Plan Name Member ID Group # Subscriber Relationship Effect gretchen Dates 1 - MEDICARE PART A CLAIMS/NGS [id number] MOY HWANG Self 2 - [facility] [id number] MOY HWANG Self Clinical Notes Includes: Clinical Notes from this encounter * Progress note Date Encounter Last Documented by 07/08/2023 WALK IN PATIENT - ESTABLISHED PT Last documented on 07/08/2023; 5:08 PM, KANDICE SWANSON DNP; [facility] Chief Complaint The Chief Complaint is: Left eye sty, red and swollen under the eye. History of Present Illness MOY HWANG is a 67 year old female. - Allergy list reviewed - Medication list reviewed - Feeling fine - No fever - No chills - Redness of left lower eyelid - Swollen left eyelid - No ear symptoms - No nasal passage blockage (stuffiness) - No sore throat - No chest pain or discomfort - No dyspnea - No cough Moy presents to the clinic with the above reported symptoms that first started this morning. Patient denies any fever, chills, or other associated symptoms. Past Medical/Surgical History Reported: Exposure: No Contact with and (Suspected) exposure to COVID-19. Physical Trauma: No fall. Social History Tobacco use: Not a current smoker. Review Of Systems Systemic: Not feeling poorly (malaise). No fever and no chills. Head: No headache and no sinus pain. Eyes: Eye symptoms. No vision problems. Redness of left lower eyelid, swollen left eyelid, and eyelids swollen and tender. Otolaryngeal: No earache, no nasal discharge, and no sore throat. Cardiovascular: No chest pain or discomfort. Pulmonary: No dyspnea and no cough. Physical Findings - Vitals taken 07/08/2023 04:24 pm BP-Sitting 146/82 mmHg Pulse Rate-Sitting 86 bpm Temp-Oral 98.3 F Height 61 in Weight 166 lbs Body Mass Index 31.4 kg/m2 Body Surface Area 1.7 m2 Oxygen Saturation 96 % General Appearance: - Awake. - Alert. Eyes: General/bilateral: Extraocular Movements: - Normal. Pupils: - PERRLA. External: - Swelling of the eyelids. - Tenderness of the eyelids. Left Eye: External: - Swelling of the lower eyelid. - Tenderness of the lower eyelid. Ears: Right Ear: External Auditory Canal: - Normal. Tympanic Membrane: - Normal. - Not erythematous. Left Ear: External Auditory Canal: - Normal. Tympanic Membrane: - Normal. - Not erythematous. Nose: General/bilateral: Discharge: - No nasal discharge. Pharynx: Oropharynx: - Tonsils showed no abnormalities. Mucosal: - Pharynx showed no accumulation of mucous. Lungs: - Clear to auscultation. Cardiovascular: Heart Rate And Rhythm: - Normal. Skin: - Mucous membranes were not dry. Assessment - [H00.019 - Hordeolum externum unspecified eye, 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] Hordeolum externum of lower eyelid Plan StartCited - Hordeolum externum unspecified eye, 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 Erythromycin 5 MG/GM gram Apply small ribon to left eye up to 6 times per day for 7 days, 7 days, 0 refills EndCited Use erythromycin ointment as directed. Apply warm compress to the eye BID to help with tenderness and swelling. Discussed signs and symptoms of worsening infection and advised patient to follow up as needed. Patient voiced understanding to the above plan and teaching.
--- OUTSIDE RECORDS SUMMARY | 2024-07-04 10:21 | XMS_ITS | Encounter Summary ---
Author Organization [facility] Address [address] [place] [address] Phone Care Team Providers Care Mortgage Funder Name Role Phone Maxim Barrios DPM Unavailable [phone] Alvarez Nelson MD Unavailable Mike Cardozo MD Unavailable Enmanuel Phipps MD Primary Care Provider [phone] Afshan Blankenship APRN, CONVEYOR MAN Primary Care Provider [phone] Reason for Visit * Reason Comments Medication Refill Encounter Details Date Type Department Care Team (Late st Contact Info) Description 09/18/2023 Refill [facility] - Endocrinology - [place] [address] [place] [address] Alvarez Nelson MD [address] [address] Medication Refill Social History Tobacco Use Types Packs/Day Years Used Date Smoking Tobacco: Never Smokeless Tobacco: Never Alcohol Use Standard Drinks/Week Comments Yes 0 (1 standard drink = 0.6 oz pur e alcohol) occasionally [facility] Utilities Answer Date Recorded In the past 12 months has th e electric, gas, oil, or water [email or web address] threatened to shut off services in your [...] How often do you attend chur or baptism services? More than 4 times per year 07/27/2023 Do you belong to any clubs o r organizations such as episcopal groups, unions, fraternal or athletic groups, or [...] Total Score - Questions 1-9 0 01/28 [facility] Occupat ional Health - Occupational Stress [...] place to sleep or slept in a correction (including now)? No 07/27/2023 Education Answer Date [...] Telephone Encounter - Soraida Mayo, RN - 09/18/2023 8:57 AM CDT Medication(s) refilled and signed per [facility] Chronic Medication Refill Standing Order for Pediatric and Adult Patients. 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 Office Visit [facility] - Endocrinology - [place] [address] [place] [address] Alvarez Nelson MD [address] [phone] 10/07/2024 8:20 AM CDT Office Visit [facility] [address] [place] [address] Kevin Jin MD [address] [place] [address] Discharge Disposition: Discharged to home or Selfcare documented as of this encounter Visit Diagnoses Not on filedocumented in this encounter Additional Health Concerns Assessment Noted Time PHQ-9 Depression Total Score: 0 02/17/20 8:50 AM CDT documented as of this encounter Care Teams Mortgage Funder Relationship Specialty Start Date End Date Enmanuel Phipps MD [address] [place] [address] PCP - General Family Medicine 05/08/23 11/01/23 Afshan Blankenship, RAILWAY SWITCHMAN, CONVEYOR MAN [address] [place] [address] PCP - General Certified Nurse Practitioner 11/02/23 Maxim Barrios DPM Podiatry 04/07/15 Alvarez Nelson MD [address] [phone] Consulting Physician Endocrinology 03/14/22 Mike Cardozo MD [address] [address] Consulting Physician Colon and Rectal Surgery 07/15/22 documented as of this encounter
--- OUTSIDE RECORDS SUMMARY | 2024-07-04 10:21 | XMS_ITS | Encounter Summary ---
Author Organization [facility] Address [facility] [place] [address] Care Team Providers Care Commercial Carpet Installer Name Role Phone Unavailable Primary Care Provider Unavailabl e Encounter Details Date Type Department Care Team (Late st Contact Info) Description 06/19/2019 [facility] Outpatient Visit EXTERNAL NON-[facility] DEPT Unknown, Provider Social History Tobacco Use Types Packs/Day Years Used Date Smoking Tobacco: Never Smokeless Tobacco: Never Alcohol Use Standard Drinks/Week Comments Yes 2 [...] on file Sexual Orientation Not on file documented as of this encounter Plan of Treatment Not on file documented as of this encounter Visit Diagnoses Not on filedocumented in this encounter
--- OUTSIDE RECORDS SUMMARY | 2024-07-04 10:21 | XMS_ITS | Clinical Summary ---
Author Organization [facility] Address [address] [facility], [place] [address] Phone Care Team Providers Care Pump Technician Name Role Phone Sophie, Maxim Samuel DPM Unavailable [phone] Alvarez Nelson MD Unavailable Mike Cardozo MD Unavailable Afshan Blankenship APRN, [facility] Primary Care Provider [phone] Allergies Active Allergy Reactions Criticality Noted Date Comments Amoxicillin Hives Betaine Hives Medium 06/14/2018 Penicillins Hives 04/07/2015 Sulfa Antibiotics Rash 07/11/2022 Sometimes gives her a rash. Sometimes not. 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 Test blood glucose 2x daily. 200 Lancet 3 021 Active Glucose Blood (Accu-Chek Guide) StripIndications: Type 2 diabetes mellitus with diabetic polyneuropathy, without long-term current use of insulin ([facility]) Use to check blood glucose 2x daily. 200 Strip 3 021 Active Blood Glucose Monitoring Suppl (Accu-Chek Guide Me) w/Device KitIndications:Ty pe 2 diabetes mellitus with diabetic polyneuropathy, without long-term current use of insulin ([facility]) 1 Kit by Does not apply route daily. Use to check blood glucose 2x daily. 1 Kit 021 Active azelastine (ASTELIN) 0.1 % Solution 2 Sprays by Nasal route 2 times daily. Use in each nostril as directed 1 Bottle 3 021 Active Dulaglutide (Trulicity) 1.5 MG/0.5ML Solution Pen-injector 1.5 mg by Subcutaneous route once a week. 6 mL 1 022 Active latanoprost (XALATAN) 0.005 % Solution INSILL 1 DROP IN BOTH EYES IN THE EVENING 022 Active Zinc 50 MG Capsule Take 100 mg by mouth. Active meclizine (ANTIVERT) 12.5 MG TabletIndications :Vertigo Take 1 Tablet by mouth every 8 hours as needed for Dizziness. 30 Tablet 023 Active traMADol (ULTRAM) 50 MG TabletIndications :Diabetic polyneuropathy associated with type 2 diabetes mellitus (HCC) Take 1 Tablet by mouth every 8 hours as needed for Moderate or more severe pain. 30 Tablet 023 Active pantoprazole (PROTONIX) 40 MG Tablet Delayed Response TAKE 1 TABLET BY MOUTH EVERY DAY 90 Tablet 1 023 Active fluticasone (FLONASE) 50 MCG/ACT SuspensionIndicat ions:Chronic maxillary sinusitis SPRAY 1-2 SPRAYS INTO EACH NOSTRIL EVERY DAY DIRECTED 48 mL 1 023 Active diclofenac (VOLTAREN) 50 MG Tablet Delayed ResponseIndicatio ns:Spinal stenosis of lumbar region with neurogenic claudication Take 1 Tablet by mouth 3 times daily. 270 Tablet 3 024 Active Magnesium 250 MG Tablet Take by mouth. Activ e Homeopathic Products (LEG CRAMPS PO) Take by mouth. Acti ve hydroCHLOROthiazi de (MICROZIDE) 12.5 MG Capsule Take 1 Capsule by mouth daily. 90 Capsule 3 024 Active Vitamin A, [id number], (VITAMIN A OP) Place in affected eye(s). Active metFORMIN (GLUCOPHAGE) 1000 MG Tablet TAKE 1 TABLET BY MOUTH TWICE A DAY WITH FOOD 180 Tablet 1 024 Active glipiZIDE (GLUCOTROL) 5 MG Tablet Take 0.5 Tablets by mouth daily (with dinner). 45 Tablet 1 024 Active DULoxetine (CYMBALTA) [address] Church ons:Diabetic polyneuropathy associated with type 2 diabetes mellitus (HCC),Spinal stenosis of lumbar region with neurogenic claudication TAKE 2 CAPSULES BY MOUTH EVERY DAY 180 Capsule 1 024 Active atorvastatin (LIPITOR) 20 MG Tablet TAKE 1 TABLET BY MOUTH EVERY DAY 90 Tablet 1 024 Active lisinopril (PRINIVIL, ZESTRIL) 40 MG TabletIndications :Essential hypertension TAKE 1 TABLET BY MOUTH EVERY DAY 90 Tablet 1 024 Active Dulaglutide (Trulicity) 3 MG/0.5ML Solution Auto-injector 3 mg by Subcutaneous route once a week. 8 mL 024 Active levothyroxine (SYNTHROID) 100 MCG TabletIndications :Hypothyroidism due to acquired atrophy of thyroid TAKE 1 TABLET BY MOUTH EVERY DAY 90 Tablet 024 Active metoprolol Succinate (TOPROL-XL) 50 MG TABLET SR 24 HR TAKE 1 TABLET BY MOUTH EVERY DAY 90 Tablet 025 Active metoprolol Succinate (TOPROL-XL) 50 MG TABLET SR 24 HR Take 1 Tablet by mouth daily. 90 Tablet 024 2024 Discontinued Active Problems Problem Noted Date Diagnosed Date Chronic maxillary sinusitis 02/24/2023 Overview (07/27/2023): Last Assessment & Plan: Nasal saline spray (Simply saline, Little Remedies, [place], [place]) 2 second sprays or 2 squeezes into each nostril while looking down over the sink, do not need to sniff in. Followed by Aquaphor apply pea-size amount into each nostril with a cotton tipped applicator, being carefully just to tuck it into each nostril, then massage soft portion of the outer nose to massage the ointment around inside the nose 2-3 times per day for one month May use Flonase 2 sprays into each nostril while looking down over the sink, do not sniff in or blow nose after use for at least 30 minutes daily Switch to Bactroban if no improvement in nasal sores 04/27/23: PROCEDURE PERFORMED: Endoscopic Left Maxillary Antrostomy with tissue removal and Fungal ball removal Sensorineural hearing loss (SNHL) of both ears 0 02/24/2023 Overview (07/27/2023): Last Assessment & Plan: Hearing and Balance testing [facility] Vertigo 11/16/2022 CLL (chronic lymphocytic leukemia) 10/21/2019 Cancer Staging:Clinical:Modified Adams Stage 0(Modified Adams risk: Low, Lymphocytosis: Present, Adenopathy: Absent, Organomegaly: Absent, Anemia: Absent, Thrombocytopenia: Absent) - Signed by Kevin Jin MD on 10/21/2019 Urge incontinence of urine 03/19/2019 Spinal stenosis of lumbar re gion with neurogenic claudication 03/19/2019 Urinary incontinence 03/19/2019 Class 1 obesity due to exces s calories with serious comorbidity and body mass index (BMI) of 32.0 to 32.9 in adult 11/30/2018 Chronic bilateral low back pain with left-sided sciatica 06/07/2018 Numbness and tingling of left lower extremity Type 2 diabetes mellitus wit h diabetic polyneuropathy, without long-term current use of insulin 09/09/2015 Peroneal tendonitis of left lower extremity 03/29 Pain of left foot 04/07/2015 Diabetic polyneuropathy asso ciated with type 2 diabetes mellitus 04/07/2015 Benign essential hypertension 01/13/2009 HTN (hypertension) Dyslipidemia Hypothyroidism Resolved Problems Problem Noted Date Diagnosed Date Resolved Date Lymphocytosis 05/30/2019 10/21/2019 Encounters Date Type Department Care Team Description 06/11/2024 Telephone [facility] [place] [address] [place] [address] Alvarez Nelson MD Care Management 06/10[facility]20[facility] [place] [address] Afshan Blankenship APRN, [facility] Medication Refill 05/23/2024 [facility] [place] [address] Alvarez Nelson MD 05/07/2024 [facility] [place] [address] Josi Haque MD Medication Refill 04/18/2024 9:15 AM SPANISH LANGUAGE LECTURER Office Visit [facility] [address]2 [facility] [place] [address] Alvarez Nelson MD Type 2 diabetes mellitus with diabetic polyneuropathy, without long-term current use of insulin (HCC) (Primary Dx); Overweight; Medication side effect; Financial difficulty Discharge Disposition: Discharged to home or Selfcare 04/18/2024 Travel from Last 3 Months Immunizations Immunization Administration Dates Next Due COVID-19, MRNA, LNP-S, BIVAL ENT , PFIZER, 30 MCG/0.3 ML (12+ Y/O) 04/13/2022 Covid-19, Mrna, Lnp-s, Pf, 3 0 Mcg/0.3 Ml Dose (Pfizer) 03/19/2021,06/08/2020,05/18/2020 Influenza Vaccine greater than 3 yrs 02/26/2018, 05/29/2014 Influenza Vaccine, Quadrivalent, PF 02/20/2020,1 Influenza, High-dose, Quadrivalent 02/10/2022 Influenza, Quadrivalent, Adjuvanted 03/10/2023 Influenza, Seasonal, Injectable, Undefined 02/26,05/29/2014 Influenza, high-dose, trivalent, PF 03/17/2021,0 02/17/2016 Pneumococcal Vaccine - 13 Valent 03/19/2021 Pneumococcal Vaccine Adult - 23 Valent 8 RSV, Recombinant, Protein Perez bunit Rsvpref, Adjuvant Recon (Arexvy) 04/03/2023 Zoster Vaccine Recombinant 03/25/2021,05/27/2019 ,11/28/2018 Family History Medical History Relation Name Comments Diabetes Brother 1 Fabian Hypertension Brother 1 Fabian Diabetes Brother 2 Huseyin Heart Attack Brother 2 Huseyin Hypertension Brother 2 Huseyin Cancer Brother 3 Antonio Diabetes Brother 3 Antonio Prostate Cancer Brother 3 Antonio Diabetes Brother 4 Shahzad Hypertension Brother 4 Shahzad Diabetes Brother 5 Blane No Known Problems Daughter 1 No Known Problems Daughter 2 No Known Problems Daughter 3 Diabetes Father No Known Problems Maternal Grandfather No Known Problems Maternal Grandmother Diabetes Mother Heart Attack Mother Hypertension Mother No Known Problems Paternal Grandfather No Known Problems Paternal Grandmother Chronic Obstructive Pulmonary Disease Sister 1 Pat ricia Diabetes Sister 1 Tiesha Chronic Obstructive Pulmonary Disease Sister 2 Zen ly Diabetes Sister 2 Yuliana Diabetes Sister 3 Fern Heart Disease Sister 3 Fern Diabetes Sister 4 Damari Diabetes Sister 5 Terrell Diabetes Sister 6 Nettie No Known Problems Son Relation Name Status Comments Brother 1 Fabian Brother 2 Huseyin Brother 3 Antonio Alive Brother 4 Shahzad Brother 5 Blane Alive Daughter 1 Alive Daughter 2 Alive Daughter 3 Alive Father Maternal Grandfather Maternal Grandmother Mother Paternal Grandfather Paternal Grandmother Sister 1 Tiesha Alive Sister 2 Yuliana Sister 3 Fern Alive Sister 4 Damari Alive Sister 5 Terrell Alive Sister 6 Nettie Alive Son Alive Social History Tobacco Use Types Packs/Day Years Used Date Smoking Tobacco: Never Smokeless Tobacco: Never Alcohol Use Standard Drinks/Week Comments Yes 0 (1 standard drink = 0.6 oz pur e alcohol) occasionally Cover [employer] Utilities Answer Date Recorded In the past 12 months has Itaro, Hydrelis, oil, or water [employer] threatened to shut off services in your home? No 07/27/2023 Social Connection and Isolat ion Panel [NHANES] Answer Date Recorded In a typical week, how many times do you talk on the phone with family, friends, or neighbors? Twice a week 07/27/2023 How often do you get togethe r with friends or relatives? Once a week 07/27/2023 How often do you attend [facility] or spiritism services? More than 4 times per year 07/27/2023 Do you belong to any clubs o r organizations such as pentecostal groups, unions, fraternal or athletic groups, or [...] Recorded Total Score - Questions 1-9 0 07/0 09/2023 [facility] - Occupational Stress [...] place to sleep or slept in a m[facility]p (including now)? No 07/27/2023 Education Answer Date [...] AM CDT Sexual Orientation Not on file Last Filed Vital Signs Vital Sign Reading Time Taken Comments Blood Pressure 122/78 04/18/2024 9:03 AM SPANISH LANGUAGE LECTURER Pulse 83 04/18/2024 9:03 AM SPANISH LANGUAGE LECTURER Temperature 36.6 C (97.9 F) 04/18/2024 9:03 AM SPANISH LANGUAGE LECTURER Respiratory Rate 22 04/18/2024 9:03 AM SPANISH LANGUAGE LECTURER Oxygen Saturation 98% 04/18/2024 9:03 AM SPANISH LANGUAGE LECTURER Inhaled Oxygen Concentration - - Weight 69.4 kg (153 lb) 04/18/2024 9:03 AM SPANISH LANGUAGE LECTURER Height 152.4 cm (5') 04/18/2024 9:03 AM SPANISH LANGUAGE LECTURER Body Mass Index 29.88 04/18/2024 9:03 AM SPANISH LANGUAGE LECTURER Plan of Treatment Upcoming Encounters Date Type Department Care Team (Late st Contact Info) Description 07/19/2024 10:00 AM SPANISH LANGUAGE LECTURER Office Visit [facility] [place] [address] [place] [phone] Alvarez Nelson MD [address] [phone] 10/07/2024 8:20 AM CDT [facility] [address] [place] [phone] Kevin Jin MD [address] [place] [address] Discharge Disposition: Discharged to home or Selfcare Health Maintenance Due Date Last Done Comments DEXA Bone Density 1954 TdaP Immunization 1954 Cologuard 2004 Immunochemical Fecal Occult Blood 2004 Mammogram 2004 Colonoscopy 06/13/2022 06/13/2017 Colorectal Cancer Screening 06/13/2022 Pneumococcal Immunization (50+ years) (3 of 3 - PPSV23, PCV20 or PCV21) 11/22/2022 03/19/2021, 11/22/2017 Influenza Immunization (#1) 01/28/202402/26, 02/10/2022, 03/17/2021, Additional history exists SARS-COV-2 Immunization ( season) 2024 03/10/2023, 04/13/2022, 03/19/2021, Additional history exists Diabetes: Foot Exam 07/18/2024 07/18/2023 Diabetes: Eye Exam 10/03/2024 10/04/2023, 0 09/22/2021, 09/22/2021, Additional history exists Diabetes: Hemoglobin A1c 10/16/202404/18/2 024, 01/17/2024, 10/17/2023, Additional history exists Diabetes: Nephropathy Screening 01/01/2025 01/02/2024, 11/02/2023, 06/30/2023, Additional history exists 06/13/2017 Pneumococcal Immunization Combined Discontinued 03/19/2021, 11/22/2017 Zoster Immunization Completed 03/25/2021, 05/27/2019, 11/28/2018 Respiratory Syncytial Virus (RSV) Immunization (Adult) Completed 04/03/2023 Hepatitis B Immunization Discontinued Hepatitis C Virus (HCV) Screening Discontinued Meningococcal Immunization (ACWY) Aged Out No longer eligible based on patient's age to complete this topic Rotavirus Immunization Aged Out No lo nger eligible based on patient's age to complete this topic Procedures Procedure Name Priority Date/Time Associated Diagnosis Comments POCT GLYCOSYLATED HEMOGLOBIN Routine 04/18/2024 9:08 AM SPANISH LANGUAGE LECTURER Type 2 diabetes mellitus with diabetic polyneuropathy, without long-term current use of insulin (HCC) CMP (COMPREHENSIVE METABOLIC PANEL) Routine 01/02/2024 11:12 AM CDT CLL (chronic lymphocytic leukemia) (HCC) HM DILATED EYE EXAM 10/04/2023 1 2:00 AM CDT from Last 3 Months or Most Recently Relevant to Health Maintenance Results * (ABNORMAL) POCT GLYCOSYLATED HEMOGLOBIN (04/18/2024 9:08 AM SPANISH LANGUAGE LECTURER) HGB-A1C 6.5(A) 4 - 6 % Blood 04/18/2024 9:08 AM SPANISH LANGUAGE LECTURER Alvarez Nelson MD POINT OF CARE TESTING (MANUAL) E dited Result - Final * (ABNORMAL) CMP (COMPREHENSIVE METABOLIC PANEL) (01/02/2024 11:12 AM CDT) SODIUM 141 136 - 145 mmol/L 01/02/2024 11:58 AM CDT [facility] POTASSIUM 4.4 3.5 - 5.1 mmol/L 01/02/2024 11:58 AM CDT [facility] CHLORIDE 104 98 - 107 mmol/L 01/02/2024 11:58 AM CDT [facility] CO2, VENOUS 29 22 - 30 mmol/L 01/02/2024 11:58 AM CDT [facility] ANION GAP 12.4 <18.0 mmol/L 01/02/2024 11:58 AM CDT [facility] GLUCOSE 141(H) 70 - 99 mg/dL 01/02/2024 11:58 AM CDT [facility] BUN 20 10 - 20 mg/dL 01/02/2024 11:58 AM [facility] CREATININE, BLOOD 0.89 0.60 - 1.00 mg/dL 01/02/2024 11:58 AM [facility] BUN/CREATININE RATIO 22(H) 12 - 20 ratio 01/02/2024 11:58 AM [facility] TOTAL PROTEIN 6.5 6.3 - 8.2 g/dL 01/02/2024 11:58 AM [facility] ALBUMIN 4.5 3.5 - 5.0 g/dL 01/02/2024 11:58 AM [facility] A/G RATIO 2.3(H) 1.0 - 2.2 01/02/2024 11:58 AM [facility] CALCIUM 10.1 8.7 - 10.5 mg/dL 01/02/2024 11:58 AM [facility] T BILI 0.5 0.2 - 1.2 mg/dL 01/02/2024 11:58 AM [facility] SGOT (AST) 28 5 - 34 U/L 01/02/2024 11:58 AM [facility] SGPT (ALT) 34 0 - 55 U/L 01/02/2024 11:58 AM [facility] ALKALINE PHOSPHATASE 129 40 - 150 U/L 01/02/2024 11:58 AM [facility] IS THE PATIENT REQUIRED TO BE FASTING? No 01/02/2024 11:58 AM [facility] GFR, ESTIMATED >60 >=60 01/02/2024 11:58 AM [facility] Comment: Creatinine Clearance is the preferred criteria for selecting drug dose adjustments in renally impaired patients. The GFR is provided as additional pertinent clinical information. GFR is reported in mL/min/1.73 sq m. Calculation based on the Chronic Kidney Disease Epidemiology Collaboration (CKD- EPI) equation refit without adjustment for race. GFR, EST. >60 >=60 024 11:58 AM CDT [facility] GFR, EST. NONAFRICAN >60 >=60 01/02/2024 11:58 AM CDT [facility] Blood Venipuncture / Unknown 01/02/2024 11:12 AM CDT 01/02/2024 11:35 AM CDT us Kevin Jin MD CHEMISTRY ORDERABLES Fin al Result Performing Organization Address City/[facility]/ZIP Co de Phone Number [facility] [address] [place] [address] * HM DILATED EYE EXAM (10/04/2023 12:00 AM CDT) 10/04/2023 us Provider Scan PROCEDURE/MINOR SURGICAL ORDERAB LES Final Result Performing Organization Address [facility] Co de Phone Number SCAN from Last 3 Months or Most Recently Relevant to Health Maintenance Insurance MEDICARE [facility] Advance Directives * Full Code (Latest Code Status on File) Date Activated Date Inactivated Comments 11/16/2022 12:47 PM 11/17/2022 5:47 PM CPR-Full Tr eatment: FULL ARREST: Attempt Resuscitation/CPR wit intubation and mechanical ventilation. PRE-ARREST: Use entire range of life support measures to stabilize the patient. * Full Code Date Activated Date Inactivated Comments 06/21/2019 10:44 AM 11/16/2022 8:05 AM Care Teams Pump Technician Relationship Specialty Start Date End Date Afshan Blankenship, BLOOD BANK CREDIT CLERK, HAMMERER HELPER [address] [place] [address] PCP - General Certified Nurse Practitioner 11/02/23 Maxim Barrios DPM Podiatry 04/07/15 Alvarez Nelson MD #[address] [address] Consulting Physician Endocrinology 03/14/22 Mike Cardozo MD [address] [address] Consulting Physician Colon and Rectal Surgery 07/15/22
--- OUTSIDE RECORDS SUMMARY | 2024-07-04 10:21 | XMS_ITS | Encounter Summary ---
Author Organization [facility] Address [address] [place] [address] Phone Care Team Providers Care Toll Test Desk Worker Name Role Phone Maxim Barrios DPM Unavailable [phone] Alvarez Nelson MD Unavailable Mike Cardozo MD Unavailable Enmanuel Phipps MD Primary Care Provider [phone] Afshan Blankenship APRN, RETAIL PHARMACY MANAGER Primary Care Provider [phone] Reason for Visit * Reason Comments Medication Refill Encounter Details Date Type Department Care Team (Late st Contact Info) Description 06/04/2023 Refill [facility] - Family Medicine [facility] [address] [place] [address] Josi Haque MD [address] [place] [address] Medication Refill Social History Tobacco Use Types [...] encounter Miscellaneous Notes * Telephone Encounter - Magui Encarnacion RN - 06/04/2023 5:48 PM SCHOOL SPEECH LANGUAGE PATHOLOGIST Medication failed the protocol, provider to review and approve the medication order if appropriate. Requested Prescriptions Pending Prescriptions Disp Refills meloxicam (MOBIC) 15 MG Tablet [Pharmacy Med Name: MELOXICAM 15 MG TABLET] 90 Tablet 1 Sig: TAKE 1 TABLET BY MOUTH EVERY DAY NSAIDs Protocol Failed - 06/04/2023 7:00 AM Failed - Not delegated, patient not between 1 and 65 years of age Passed - Normal serum creatinine in past 12 months CREATININE, BLOOD Date Value Ref Range Status 05/05/2023 0.68 0.60 - 1.00 mg/dL Final Passed - Visit with relevant provider in past 12 months or upcoming 90 days Recent Visits Date Type Provider Dept 02/16/23 Office Visit Josi Haque MD [facility] 11/22/22 Office Visit Lien Thomas, ANTISQUEAK CHALKER, RETAIL PHARMACY MANAGER [facility] [place] 08/11/22 Office Visit Josi Haque MD [facility] Showing recent visits within past 365 days and meeting all other requirements Future Appointments Date Type Provider Dept 07/27/23 Appointment Enmanuel Phipps MD [facility] [place] Showing future appointments within next 90 days and meeting all other requirements Passed - No matching NSAID med order in past 45 days No matching medication orders between 04/20/2023 5:48 PM and 06/04/2023 5:48 PM Passed - AST less than 55 or ALT less than 90 in past 12 months SGOT (AST) Date Value Ref Range Status 05/05/2023 27 5 - 34 U/L Final SGPT (ALT) Date Value Ref Range Status 05/05/2023 38 0 - 55 U/L Final Passed - HGB greater than 10 or HCT greater than 30 in past 12 months HEMOGLOBIN (HGB) Date Value Ref Range Status 05/05/2023 11.9 (L) 12.0 - 15.8 g/dL Final HEMATOCRIT (HCT) Date Value Ref Range Status 05/05/2023 38.1 36.0 - 47.0 % Final OL SPEECH LANGUAGE PATHOLOGIST documented in this encounter Plan of Treatment Upcoming Encounters Date Type Department Care Team (Late st Contact Info) Description 07/19/2024 10:00 AM SCHOOL SPEECH LANGUAGE PATHOLOGIST Office Visit [facility] - Endocrinology [facility] [address] [place] [address] Alvarez Nelson MD #[address] [address] 10/07/2024 8:20 AM CDT [facility] [address] [place] [phone] Kevin Jin MD [address] [place] [address] Discharge Disposition: Discharged to home or Selfcare documented as of this encounter Visit Diagnoses Not on filedocumented in this encounter Additional Health Concerns Assessment Noted Time PHQ-9 Depression Total Score: 0 02/17/20 8:50 AM CDT documented as of this encounter Care Teams Toll Test Desk Worker Relationship Specialty Start Date End Date Enmanuel Phipps MD [address] [place] [address] PCP - General Family Medicine 05/08/23 11/01/23 Afshan Blankenship, ANTISQUEAK CHALKER, RETAIL PHARMACY MANAGER [address] [place] [address] PCP - General Certified Nurse Practitioner 11/02/23 Maxim Barrios DPM Podiatry 04/07/15 Alvarez Nelson MD #[address] [address] Consulting Physician Endocrinology 03/14/22 Mike Cardozo MD #[address] [address] Consulting Physician Colon and Rectal Surgery 07/15/22 documented as of this encounter
--- OUTSIDE RECORDS SUMMARY | 2024-07-04 10:21 | XMS_ITS ---
Author Organization [facility] Address [address] [place] [address] Phone Care Team Providers Care Tool Analyst Name Role Phone AKILA ARTIS MD Primary Care Provider [phone] Problems Includes: Active, inactive, and resolved Problems All Visits Onset Date Resolved Date Provider Condition S tatus HYPERLIPIDEMIA NEC/NOS 01/13/2009 MORENITA ARTIS MD Active Last Documented On 9 11:48PM ; [facility] Essential Hypertension Benign 01/13/2009 AKILA ARTIS MD Active Last Documented On 1 9:22AM ; [facility] Diabetes Mellitus Type 2 10/12/2008 AKILA LAM MD Active Last Documented On 1 9:22AM ; [facility] HYPOTHYROIDISM NOS 10/12/2008 AKILA Vergara MD Active Last Documented On 9 11:33AM ; [facility] Plan of Treatment Findings Encounter Date Go to the emergency room if condition worsens WALK IN PATIENT - ESTABLISHED PT with TALAT MICHELLE-BC 11/08/2022 Last Documented On 3 6:14PM ; [facility] Ordered follow-up visit 5-7 days if symptoms persist or worsen WALK IN PATIENT - ESTABLISHED PT with TALAT MICHELLE-BC 11/08/2022 Last Documented On 3 6:14PM ; [facility] Ordered follow-up visit as n eeded with an office visit. WALK IN PATIENT - ESTABLISHED PT with TALAT MICHELLE-BC 11/08/2022 Last Documented On 3 6:14PM ; [facility] Ordered return to the clinic if condition worsens or new symptoms arise WALK IN PATIENT - ESTABLISHED PT with TALAT GAGE SUPERINTENDENT [employer]-BC 11/08/2022 Last Documented On 3 6:14PM ; [facility] The options include close observation WA LK IN PATIENT - ESTABLISHED PT with MARYANA Jimmie JENNYFER SUPERINTENDENT ELECTR[employer] POWER-C 03/25/2022 Last Documented On 2 10:46AM ; [facility] Watch for signs/symptoms of infection, return to the clinic if seen WALK IN PATIENT - ESTABLISHED PT with MARYANA Jimmie [employer]NY[employer]-C 03/25/2022 Last Documented On 2 10:46AM ; [facility] Ordered follow-up visit as n eeded with an office visit.. Patient to report if sx are not improving in the next few days SICK VISIT with EDWINA MORGAN PA-C 05/02/2011 Last Documented On 1 3:37PM ; [facility] Ordered follow-up visit as n eeded with an office visit.. Recommended to patient to return in one week for vaginal cultures if sx are not resolving, especially with the odor. Patient became tearful during the visit and we discussed starting something for depression because the sx coming and going. Patient was not interested in this at this time and declined referral for counseling. Patient is to let us know if sx are worsening or if she changes her mind about a medication PROBLEM VISIT with EDWINA MORGAN PA-C 11/04/2009 Last Documented On 0 10:10AM ; [facility] Ordered a comprehensive meta bolic panel MED CHECK with AKILA ARTIS MD 01/13/2009 Last Documented On 9 11:49PM ; [facility] Ordered a lipid profile MED CHECK with AKILA LEMA MD 01/13/2009 Last Documented On 9 11:49PM ; [facility] Ordered hemoglobin A1c MED CHECK with AKILA BORJA MD 01/13/2009 Last Documented On 9 11:49PM ; [facility] Ordered serum thyroid stimul ating hormone (TSH) URINE MICROALBUMIN MED CHECK with AKILA ARTIS MD 01/13/2009 Last Documented On 9 11:49PM ; [facility] Instructions to patient Go to the emergency room if condition worsens Last Documented On 3 5:20PM ; [facility] Watch for signs/symptoms of infection, return to the clinic if seen Last Documented On 3 5:20PM ; [facility] Watch for signs/symptoms of infection, return to the clinic if seen Last Documented On 2 10:43AM ; [facility] Return to the clinic if cond ition worsens or new symptoms arise Last Documented On 0 9:32AM ; [facility] Education and Decision Aids were provided during visit for: Patient education ON THIS SIT'S ASSESSMENT OF PROBLEMS AND THE CORRESPONDING TREATMENTS WAS PROVIDED AND THE PATIENT AND PRESENT FAMILY MEMBERS DEMONSTRATED UNDERSTANDING OF THE INFORMATION CONVEYED AND ALL QUESTIONS WERE ANSWERED Last Documented On 0 9:30AM ; [facility] Parent education about medic ation use Last Documented On 0 9:32AM ; [facility] Assessments Includes: Assessments for all patient encounters Findings Encounter Date Hordeolum externum of lower eyelid WALK IN PATIENT - ESTABLISHED PT with KANDICE SWANSON DNP 07/08/2023 Last Documented On 4 5:08PM ; [facility] Furuncle on the finger(s) of the right hand WALK IN PATIENT - ESTABLISHED PT with TALAT MICHELLE-BC 11/08/2022 Last Documented On 3 6:14PM ; [facility] Acute suppurative otitis med ia of both ears WALK IN PATIENT - ESTABLISHED PT with MARYANA MICHELLE-C 03/25/2022 Last Documented On 2 10:46AM ; [facility] Acute sinusitis SICK VISIT with EDWINA Wilson 05/02/2011 Last Documented On 1 3:37PM ; [facility] Benign essential hypertension 6 MONTH CHECK with AKILA ARTIS MD 11/24/2010 Last Documented On 1 9:27AM ; [facility] Cramp of limb 6 MONTH CHECK with AKILA GUDINO MD 11/24/2010 Last Documented On 1 9:27AM ; [facility] Type II diabetes mellitus 6 MONTH CHECK with ZEE ARTIS MD 11/24/2010 Last Documented On 1 9:27AM ; [facility] Acute sinusitis CHECK UP with AKILA ARTIS MD 05/26/2010 Last Documented On 0 9:33AM ; [facility] Benign essential hypertension CHECK UP with ARELY ARTIS MD 05/26/2010 Last Documented On 0 9:33AM ; [facility] Diabetes mellitus CHECK UP with AKILA QUEEN MD 05/26/2010 Last Documented On 0 9:33AM ; [facility] Hyperlipidemia CHECK UP with AKILA ARTIS MD 05/26/2010 Last Documented On 0 9:33AM ; [facility] Bacterial vaginosis PROBLEM VISIT with EDWINA MEJÍA PA-C 11/04/2009 Last Documented On 0 10:10AM ; [facility] Candidiasis PROBLEM VISIT with EDWINA MORGAN PA-C 11/04/2009 Last Documented On 0 10:10AM ; [facility] Depression PROBLEM VISIT with EDWINA MORGAN PA-C 11/04/2009 Last Documented On 0 10:10AM ; [facility] Upper respiratory infection * PHONE CALL with JOSE DANIEL ARTIS MD 08/31/2009 Last Documented On 0 1:56PM ; [facility] Essential hypertension MED CHECK with AKILA BORJA MD 01/13/2009 Last Documented On 9 11:49PM ; [facility] Hyperlipidemia MED CHECK with AKILA Vergara MD 01/13/2009 Last Documented On 9 11:49PM ; [facility] Type II diabetes mellitus MED CHECK with AKILA ARTIS MD 01/13/2009 Last Documented On 9 11:49PM ; [facility] Instructions Includes: Instructions for all patient encounters Instructions to patient Go to the emergency room if condition worsens Last Documented On 3 5:20PM ; [facility] Watch for signs/symptoms of infection, return to the clinic if seen Last Documented On 3 5:20PM ; [facility] Watch for signs/symptoms of infection, return to the clinic if seen Last Documented On 2 10:43AM ; [facility] Return to the clinic if cond ition worsens or new symptoms arise Last Documented On 0 9:32AM ; [facility] Education and Decision Aids were provided during visit for: Patient education ON THIS SIT'S ASSESSMENT OF PROBLEMS AND THE CORRESPONDING TREATMENTS WAS PROVIDED AND THE PATIENT AND PRESENT FAMILY MEMBERS DEMONSTRATED UNDERSTANDING OF THE INFORMATION CONVEYED AND ALL QUESTIONS WERE ANSWERED Last Documented On 0 9:30AM ; [facility] Parent education about medic ation use Last Documented On 0 9:32AM ; [facility] Medical Equipment - Implanted Devices Includes: Current and historical Devices No Medical Equipment Recorded Medications Includes: Current and historical Medications Current Medications (continue as prescribed) traMADol HCl 50 MG Oral Tablet 07/08/2023 Provider: Diagnosis: Last Documented On 4 4:34PM By NERIS REED ; [facility] Meloxicam 15 MG Oral Tablet 07/08/2023 Provider: Diagnosis: Last Documented On 4 4:34PM By NERIS REED ; [facility] Meclizine HCl 12.5 MG Oral Tablet 07/08/2023 Provide r: Diagnosis: take 1 tab q 8 hrs prn Last Documented On 4 4:33PM By NERIS REED ; [facility] Lisinopril 40 MG Oral Tablet 07/08/2023 Provider: Diagnosis: Last Documented On 4 4:32PM By NERIS REED ; [facility] diazePAM 5 MG Oral Tablet 07/08/2023 Provider: Diagnosis: 1 tab q 8hrs prn Last Documented On 4 4:31PM By NERIS REED ; [facility] SM Zinc 50 MG Oral Tablet 07/08/2023 Provider: Diagnosis: Last Documented On 4 4:35PM By NERIS REED ; [facility] Trulicity 3 MG/0.5ML Subcutaneous Solution Pen-injecto r 07/08/2023 Provider: Diagnosis: 1.5 mg sub q once weekly Last Documented On 4 4:35PM By NERIS REED ; [facility] glipiZIDE XL 2.5 MG Oral Tablet Extended Release 24 Ho ur 07/08/2023 Provider: Diagnosis: Last Documented On 4 4:26PM By NERIS REED ; [facility] Atorvastatin Calcium 40 MG Oral Tablet 07/08/2023 Pr ovider: Diagnosis: Last Documented On 4 4:28PM By NERIS REED ; [facility] Azelastine HCl 0.1% Nasal Solution 07/08/2023 Provid er: Diagnosis: Last Documented On 4 4:31PM By NERIS REED ; [facility] Fluticasone Propionate 50 MCG/ACT Nasal Suspension 02/2024 Provider: Diagnosis: spraay 1-2 sprays in each nostril daily prn Last Documented On 4 4:33PM By NERIS REED ; [facility] Pantoprazole Sodium 40 MG Oral Tablet Delayed Release 07/08/2023 Provider: Diagnosis: Last Documented On 4 4:34PM By NERIS REED ; [facility] Levothyroxine Sodium 112 MCG Oral Tablet 03/22/2022 Provider: JOSE LUIS MESA MD Diagnosis: Last Documented On 03/25/2022 10:18AM By Kristel Miller MA ; [facility] DULoxetine HCl 20 MG Oral Ca psule Delayed Release Particles 03/22/2022 Provider: JOSE LUIS MESA MD Diagnosis: Last Documented On 03/25/2022 10:18AM By Kristel Miller MA ; [facility] metFORMIN HCl 1000 MG Oral Tablet 03/16/2022 Provide r: LENORE KAY MD Diagnosis: Last Documented On 03/25/2022 10:18AM By Kristel Miller MA ; [facility] Latanoprost 0.005% Ophthalmic Solution 03/09/2022 Pr ovider: Diagnosis: Last Documented On 03/25/2022 10:18AM By Kristel Miller MA ; [facility] Past Medications on file Erythromycin 5 MG/GM Ophthalmic Ointment 07/08/2023 - 07/15/2023 Provider: KANDICE SWANSON DNP Diagnosis: 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, 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 Apply small ribon to left ey e up to 6 times per day for 7 days Last Documented On 4 4:42PM By Kandice Swanson DNP ; [facility] Mupirocin 2% External Ointment 11/08/2022 - 07/08/2023 Provider: TALAT GAGE [employer]PER[employer]ENDENT [employer]-BC Diagnosis: Furuncle right h and apply BID to affected area x 10 days Last Documented On 4 4:26PM By NERIS REED ; [facility] Sulfamethoxazole-Trimethopri m 800-160 MG Oral Tablet 11/08/2022 - 07/08/2023 Provider: TALAT GAGE [employer]-BC Diagnosis: Furuncle right hand One tablet twice a day Last Documented On 4 4:26PM By NERIS REED ; [facility] Cefdinir 300 MG Oral Capsule 03/25/2022 - 04/01/2022 Provider: MARYANA MICHELLE-C Diagnosis: Acute suppr otit is media w/o spon rupt ear drum, bilateral 1 CAPSULE TWO TIMES A DAY Last Documented On 03/25/2022 10:36AM By Maryana MICHELLE ; [facility] glipiZIDE 5 MG Oral Tablet 03/21/2022 - 07/08/2023 Pro vider: LENORE KAY MD Diagnosis: Last Documented On 4 4:26PM By NERIS REED ; [facility] Pioglitazone HCl 30 MG Oral Tablet 03/21/2022 - 2023 Provider: LENORE KAY MD Diagnosis: Last Documented On 4 4:27PM By NERIS REED ; [facility] Atorvastatin Calcium 20 MG Oral Tablet 02/02/2022 - 07/08/2023 Provider: JOSE LUIS Noonan MD Diagnosis: Last Documented On 4 4:27PM By NERIS REED ; [facility] Metoprolol Succinate ER 50 M G Oral Tablet Extended Release 24 Hour 01/25/2022 - 07/08/2023 Provider: JOSE LUIS Noonan MD Diagnosis: Last Documented On 4 4:30PM By NERIS REED ; [facility] Levaquin 500 MG OR TABS 05/02/2011 - 05/12/2011 Provid er: EDWINA MORGAN PA-C Diagnosis: ACUTE SINUSITIS NOS Last Documented On 05/02/2011 3:37PM By EDWINA MORGAN PA-C ; [facility] Diflucan 150 MG OR TABS 04/27/2011 - 05/04/2011 Provider: EDWINA Wilson Diagnosis: CANDIDIASIS SITE NOS TAKE ONE TABLET BY MOUTH EVERY DAY FOR 7 DAYS Last Documented On 04/27/2011 8:48AM By EDWINA MORGAN PA-C ; [facility] Spironolactone 50 MG OR TABS 04/13/2011 - 07/08/2023 Feng fox: AKILA RAMOS MD Diagnosis: TAKE ONE TABLET BY MOUTH EVERY DAY Last Documented On 4 4:29PM By NERIS REED ; [facility] Cipro 250 MG OR TABS 04/05/2011 - 04/12/2011 Provider: AKILA ARTIS MD Diagnosis: 1 BID X 7DAYS Last Documented On 04/05/2011 1:17PM By Candy REED ; [facility] Metoprolol Succinate ER 25 M G OR TB24 03/03/2011 - 07/08/2023 Provider: AKILA QUEEN MD Diagnosis: TAKE ONE TABLET BY MOUTH EVERY DAY Last Documented On 4 4:29PM By NERIS REED ; [facility] Nix Complete Lice System 1% EX LIQD 12/07/2010 - 07/08/2023 Provider: AKILA QUEEN MD Diagnosis: Last Documented On 4 4:29PM By NERIS REED ; [facility] Lovastatin 10 MG OR TABS 11/25/2010 - 11/20/2011 Provi jim: AKILA ARTIS MD Diagnosis: TAKE ONE TABLET BY MOUTH AT BEDTIME Last Documented On 11/25/2010 11:23AM By Candy REED ; [facility] Magnesium Oxide 400 MG OR TABS 11/24/2010 - 07/08/2023 Provider: AKILA QUEEN MD Diagnosis: CRAMP IN LIMB Last Documented On 4 4:29PM By NERIS REED ; [facility] Levothyroxine Sodium 125 MCG OR TABS 08/11/2010 - 07/08/2023 Provider: AKILA QUEEN MD Diagnosis: 1QD - TAKE ONE TABLET BY MOUTH EVERY DAY Last Documented On 4 4:29PM By NERIS REED ; [facility] Mobic 15 MG OR TABS 06/30/2010 - 07/08/2023 Provider: AKILA ARTIS MD Diagnosis: 1QD - TAKE ONE TABLET BY MOUTH EVERY DAY Last Documented On 4 4:29PM By NERIS REED ; [facility] Levothyroxine Sodium 125 MCG OR TABS 05/26/2010 - 08/11/2010 Provider: AKILA QUEEN MD Diagnosis: 1QD - TAKE ONE TABLET BY MOUTH EVERY DAY Last Documented On 1 11:20PM By AKILA ARTIS MD ; [facility] metFORMIN HCl 500 MG TABS 05/26/2010 - 07/08/2023 Prov ider: AKILA ARTIS MD Diagnosis: Last Documented On 4 4:30PM By NERIS REED ; [facility] Zithromax Z-Shawn 250 MG OR TABS 05/26/2010 - 05/31/2010 Provider: AKILA QUEEN MD Diagnosis: Last Documented On 0 9:08AM By AKILA ARTIS MD ; [facility] Zithromax Z-Shawn 250 MG OR TABS 05/26/2010 - 06/05/2010 Provider: AKILA QUEEN MD Diagnosis: PLEASE GIVE HER A REFILL Last Documented On 0 9:08AM By AKILA ARTIS MD ; [facility] Amaryl 4 MG OR TABS 05/26/2010 - 07/08/2023 Provider: AKILA ARTIS MD Diagnosis: 1QD - TAKE ONE TABLET BY MOUTH EVERY DAY Last Documented On 4 4:30PM By NERIS REED ; [facility] metFORMIN HCl 500 MG TABS 05/12/2010 - 05/26/2010 Prov ider: AKILA ARTIS MD Diagnosis: 2 BID. NEEDS APPT BEFORE ANY ADDITIONAL RFS Last Documented On 0 9:07AM By AKILA ARTIS MD ; [facility] Diflucan 150 MG OR TABS 05/11/2010 - 04/27/2011 Provider: EDWINA Wilson Diagnosis: CANDIDIASIS SITE NOS 1QD7D - TAKE ONE TABLET BY M OUTH EVERY DAY FOR 7 DAYS Last Documented On 04/27/2011 8:48AM By EDWINA MORGAN PA-C ; [facility] Levothyroxine Sodium 125 MCG OR TABS 05/10/2010 - 05/26/2010 Provider: AKIAL QUEEN MD Diagnosis: 1QD - TAKE ONE TABLET BY MOUTH EVERY DAY Last Documented On 0 9:07AM By AKILA ARTIS MD ; [facility] Mobic 15 MG OR TABS 05/10/2010 - 06/30/2010 Provider: AKILA ARTIS MD Diagnosis: 1QD - TAKE ONE TABLET BY MOUTH EVERY DAY Last Documented On 1 11:24PM By AKILA ARTIS MD ; [facility] Amaryl 4 MG OR TABS 05/10/2010 - 05/26/2010 Provider: AKILA ARTIS MD Diagnosis: 1QD - TAKE ONE TABLET BY MOUTH EVERY DAY Last Documented On 0 9:07AM By AKILA ARTIS MD ; [facility] metFORMIN HCl 500 MG TABS 03/16/2010 - 05/12/2010 Prov ider: AKILA ARTIS MD Diagnosis: 2BID - TAKE TWO TABLETS BY MOUTH TWICE DAILY Last Documented On 05/12/2010 8:11AM By Candy REED ; [facility] Spironolactone 50 MG OR TABS 03/16/2010 - 04/13/2011 P rovider: AKILA RAMOS MD Diagnosis: 1QD - TAKE ONE TABLET BY MOUTH EVERY DAY Last Documented On 04/13/2011 11:06AM By Candy REED ; [facility] Toprol XL 25 MG OR TB24 02/04/2010 - 07/08/2023 Provid er: AKILA ARTIS MD Diagnosis: 1QD - TAKE ONE TABLET BY MOUTH EVERY DAY Last Documented On 4 4:30PM By NERIS REED ; [facility] Flagyl 500 MG OR TABS 11/04/2009 - 11/11/2009 Provider : EDWINA MORGAN PA-C Diagnosis: VAGINITIS Last Documented On 11/04/2009 9:40AM By EDWINA MORGAN PA-C ; [facility] Nystatin [id number] UNIT/GM EX CREA 11/04/2009 - 12/04/2009 Provider: EDWINA Wilson Diagnosis: CANDIDIASIS SITE NOS apply to affected area tid-qid Last Documented On 11/04/2009 9:39AM By EDWINA MORGAN PA-C ; [facility] Diflucan 150 MG OR TABS 11/04/2009 - 11/11/2009 Provider: EDWINA Wilson Diagnosis: CANDIDIASIS SITE NOS one po for 7 days Last Documented On 11/04/2009 9:39AM By EDWINA MORGAN PA-C ; [facility] Mobic 15 MG OR TABS 10/20/2009 - 05/10/2010 Provider: AKILA ARTIS MD Diagnosis: 1QD - TAKE ONE TABLET BY MOUTH EVERY DAY Last Documented On 05/10/2010 9:56PM By Candy REED ; [facility] Lovastatin 10 MG OR TABS 10/20/2009 - 10/15/2010 Provi jim: AKILA ARTIS MD Diagnosis: 1HS - TAKE ONE TABLET BY MOUTH AT BEDTIME Last Documented On 10/20/2009 12:12PM By Candy REED ; [facility] Diflucan 150 MG OR TABS 09/28/2009 - 09/29/2009 Provid er: EDWINA MORGAN PA-C Diagnosis: FF - TAKE 1 TABLET BY MOUTH NOW Last Documented On 09/28/2009 3:09PM By EDWINA MORGAN PA-C ; [facility] Zithromax Z-Shawn 250 MG OR TABS 08/31/2009 - 05/26/2010 Provider: AKILA QUEEN MD Diagnosis: Last Documented On 0 9:08AM By AKILA ARTIS MD ; [facility] Amaryl 4 MG OR TABS 07/15/2009 - 05/10/2010 Provider: AKILA ARTIS MD Diagnosis: Last Documented On 0 9:56PM By AKILA ARTIS MD ; [facility] Diflucan 150 MG OR TABS 06/23/2009 - 09/28/2009 Provid er: AKILA ARTIS MD Diagnosis: ONE NOW AND IN 3 DAYS Last Documented On 09/28/2009 3:09PM By EDWINA MORGAN PA-C ; [facility] Levothyroxine Sodium 125 MCG OR TABS 06/02/2009 - 05/10/2010 Provider: AKILA QUEEN MD Diagnosis: Last Documented On 0 9:57PM By AKILA ARTIS MD ; [facility] Amaryl 4 MG OR TABS 06/02/2009 - 07/15/2009 Provider: AKILA ARTIS MD Diagnosis: Last Documented On 0 5:30PM By AKILA ARTIS MD ; [facility] Lovastatin 10 MG OR TABS 06/02/2009 - 10/20/2009 Provi jim: AKILA ARTIS MD Diagnosis: Last Documented On 0 12:12PM By AKILA ARTIS MD ; [facility] Diflucan 150 MG OR TABS 04/14/2009 - 04/15/2009 Provid er: AKILA ARTIS MD Diagnosis: ONE NOW REPEAT IN 3 DAYS Last Documented On 04/15/2009 12:00PM By DOMENIC ANDREWS ; [facility] Mobic 15 MG OR TABS 04/07/2009 - 10/20/2009 Provider: EDWINA MORGAN PA-C Diagnosis: Last Documented On 10/20/2009 12:13PM By EDWINA MORGAN PA-C ; [facility] Zithromax Z-Shawn 250 MG OR TABS 03/26/2009 - 05/26/2010 Provider: AKILA QUEEN MD Diagnosis: Last Documented On 0 9:08AM By AKILA ARTIS MD ; [facility] Spironolactone 50 MG OR TABS 02/23/2009 - 05/26/2010 Feng kelloggder: AKILA RAMOS MD Diagnosis: 1 TAB PO QD # 3 0 Last Documented On 0 8:59AM By AKILA ARTIS MD ; [facility] metFORMIN HCl 500 MG TABS 02/23/2009 - 03/16/2010 Prov ider: AKILA ARTIS MD Diagnosis: Last Documented On 03/16/2010 10:37AM By Candy REED ; [facility] Amaryl 4 MG OR TABS 02/04/2009 - 04/05/2009 Provider: AKILA HOOK M.D. Diagnosis: Last Documented On 02/04/2009 11:46AM By PRADEEP VELAZQUEZ ; [facility] Levothyroxine Sodium 125 MCG OR TABS 02/04/2009 - 04/05/2009 Provider: AKILA Canela Diagnosis: PRAMOD IN 6 WKS Last Documented On 02/04/2009 11:46AM By PRADEEP VELAZQUEZ ; [facility] Diflucan 150 MG OR TABS 01/19/2009 - 04/14/2009 Provid er: AKILA ARTIS MD Diagnosis: Last Documented On 9 10:50PM By AKILA ARTIS MD ; [facility] Lotrisone 1-0.05% EX CREA 01/19/2009 - 02/18/2009 Prov ider: AKILA ARTIS MD Diagnosis: Last Documented On 9 1:10PM By AKILA ARTIS MD ; [facility] Lotrisone 1-0.05% EX CREA 01/13/2009 - 01/19/2009 Prov ider: AKILA ARTIS MD Diagnosis: Last Documented On 9 1:09PM By AKILA ARTIS MD ; [facility] Levothyroxine Sodium 100 MCG OR TABS 01/13/2009 - 05/26/2010 Provider: AKILA Canela Diagnosis: Last Documented On 0 8:57AM By AKILA ARTIS MD ; [facility] metFORMIN HCl 500 MG TABS 01/13/2009 - 05/26/2010 Prov ider: AKILA HOOK M.D. Diagnosis: Last Documented On 0 8:58AM By AKILA ARTIS MD ; [facility] Mobic 15 MG OR TABS 01/13/2009 - 02/12/2009 Provider: Diagnosis: Last Documented On 9 3:56PM By AKILA ARTIS MD ; [facility] Amaryl 2 MG OR TABS 01/01/2009 - 05/26/2010 Provider: AKILA ARTIS MD Diagnosis: 1 TAB PO QD # 30 Last Documented On 0 8:58AM By AKILA ARTIS MD ; [facility] Toprol XL 25 MG OR TB24 01/01/2009 - 05/26/2010 Provid er: AKILA ARTIS MD Diagnosis: 1 TAB PO QD # 30 Last Documented On 0 8:58AM By AKILA ARTIS MD ; [facility] Diflucan 150 MG OR TABS 12/01/2008 - 01/19/2009 Provid er: EDWINA MORGAN PA-C Diagnosis: Last Documented On 9 1:09PM By AKILA ARTIS MD ; [facility] Mobic 7.5 MG OR TABS 10/02/2008 - 01/13/2009 Provider: AKILA ARTIS MD Diagnosis: Last Documented On 9 3:56PM By AKILA ARTIS MD ; [facility] Medications Administered Includes: Administered Medications in patient's chart No Administered Medications Recorded Vital Signs Includes: Vital Signs from 07/04/2023 through 07/04/2024 Vital Name 07/08/2023 04:24P Blood Pressure Sitting (mmHg) 146/82 Pulse Rate-Sitting (bpm) 86 Temp-Oral (F) 98.3 Height (in) 61 Weight (lb) 166 Body Mass Index 31.4 Body Surface Area 1.7 Oxygen Saturation (%) 96 Last Documented: On 07/08/2023 4:24PM ; [facility] Results Includes: Results from 07/04/2023 through 07/04/2024 No Results Recorded For Specified Dates History of Present Illness History of Present Illness not supported for this document type No History of Present Illness Recorded Social History Description Last Updated Not a current smoker 07/08/2023 Last Documented On 4 5:08PM ; [facility] Tobacco non-user 03/25/2022 Last Documented On 2 10:46AM ; [facility] 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 Last Documented On 08/18/200 9 11:49PM ; [facility] Social history unchanged 01/13/2009 Last Documented On 9 11:49PM ; [facility] 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 Last Documented On 9 11:49PM ; [facility] Smoking Status Unknown Medical History Includes: Medical History in patient's chart Description Last Updated No Contact with and (Suspected) exposure to COVID-19 07/08/2023 Last Documented On 4 5:08PM ; [facility] No fall 07/08/2023 Last Documented On 4 5:08PM ; [facility] Taking OTC medications 03/25/2022 Last Documented On 2 10:46AM ; [facility] Taking OTC cold medication Leticia- [place] cold, 05/02/2011 Last Documented On 1 3:37PM ; [facility] Blood sugar check was not performed befo re breakfast 01/13/2009 Last Documented On 9 11:49PM ; [facility] Blood sugar check was not pe rformed two hours after a meal PT NOT CHECKING HER SUGAR REGULARLY 01/13/2009 Last Documented On 9 11:49PM ; [facility] Family History Includes: Family History in patient's chart No Family History Recorded Review of Systems Review of Systems not supported for this document type No Review of Systems Recorded Mental Status No Mental Status Recorded Functional Status No Functional Status Recorded Physical Exam Physical Exam not supported for this document type No Physical Exam Recorded Allergies Includes: Active, inactive, and resolved Allergies Substance Type Reaction Onset Date Resolved Date Statu s Penicillins Allergy 10/12/2008 Active Last Documented On 4 4:35PM ; [facility] Encounters Includes: Encounters from 07/04/2023 through 07/04/2024 Encounter Provider Location Date Check-In Time Check-Out Time Diagnosis WALK IN PATIENT - ESTABLISHED PT KANDICE SWANSON DNP [facility] 07/08/19 24 3:31PM 4:36PM [employer] Lower Eyelid Insurance Includes: Active Insurance Policies Plan Name Member ID Group # Subscriber Relationship Effect gretchen Dates 1 - MEDICARE PART A CLAIMS/NGS [id number] MOY HWANG Self 2 - [facility] [id number] MOY HWANG Self Clinical Notes Includes: Signed Clinical Notes starting from 06/17/2022 * Progress note Date Encounter Last Documented by 07/08/2023 WALK IN PATIENT - ESTABLISHED PT Last documented on 07/08/2023; 5:08 PM, KANDICE SWANSON DNP; [facility] Chief Complaint The Chief Complaint is: Left [...]
--- OUTSIDE RECORDS SUMMARY | 2024-07-04 10:21 | XMS_ITS | Encounter Summary ---
Author Organization [facility] Address [address] [place] [address] Phone Care Team Providers Care Manager Pharmaceutical Name Role Phone Josi Haque MD Primary Care Provider [phone] Maxmi Barrios DPM Unavailable [phone] Alvarez Nelson MD Unavailable Mike Cardozo MD Unavailable Enmanuel Phipps MD Primary Care Provider [phone] Afshan Blankenship APRN, [facility] Primary Care Provider [phone] Reason for Visit * Reason Comments Medication Refill Encounter Details Date Type Department Care Team (Late st Contact Info) Description 01/07/2022 Refill [facility] - Family Medicine [facility] [address] [place] [address] Josi Haque MD [address] [place] [address] Medication Refill Social History Tobacco Use Types [...] suspected to have Coronavirus/COVID-19? 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 [facility] - Endocrinology [facility] [address] [place] [address] Alvarez Nelson MD [address] [address] 10/07/2024 8:20 AM CDT [facility] [address] [place] [address] Kevin Jin MD [address] [place] [address] Discharge Disposition: Discharged to home or Selfcare documented as of this encounter Visit Diagnoses Diagnosis Essential hypertension Unspecified essential hypertension documented in this encounter Additional Health Concerns Assessment Noted Time PHQ-9 Depression Total Score: 0 10/09/19 10:00 AM CDT documented as of this encounter Care Teams Manager Pharmaceutical Relationship Specialty Start Date End Date Josi Haque MD [address] [place] [address] PCP - General Family Medicine 04/07/15 05/07/23 Enmanuel Phipps MD [address] [place] [address] PCP - General Family Medicine 05/08/23 11/01/23 Afshan Blankenship, PATIENT DAY COORDINATOR, RAISER HELPER [address] [place] [address] PCP - General Certified Nurse Practitioner 11/02/23 Maxim Barrios DPM [address] [place] [address] Podiatry 04/07/15 Alvarez Nelson MD [address] [id number] Consulting Physician Endocrinology 03/14/22 Mike Cardozo MD [address] [address] Consulting Physician Colon and Rectal Surgery 07/15/22 documented as of this encounter
--- OUTSIDE RECORDS SUMMARY | 2024-07-04 10:21 | XMS_ITS | Clinical Summary ---
Author Organization [facility] Address [address] [place] [address] Phone Care Team Providers Care Mold Puller Name Role Phone AKILA ARTIS MD Primary Care Provider [phone] Reason for Visit and Chief Complaint The Chief Complaint is: Paco. cold symptoms x 3 weeks; otc sx no help; jaw is hurting Problems Includes: Problems addressed during this encounter and other active Problems All Visits Onset Date Resolved Date Provider Condition S tatus HYPERLIPIDEMIA NEC/NOS 01/13/2009 MORENITA ARTIS MD Active Last Documented On 9 11:48PM ; [facility] Essential Hypertension Benign 01/13/2009 AKILA ARTIS MD Active Last Documented On 1 9:22AM ; [facility] Diabetes Mellitus Type 2 10/12/2008 AKILA LAM MD Active Last Documented On 1 9:22AM ; [facility] HYPOTHYROIDISM NOS 10/12/2008 AKILA Vergara MD Active Last Documented On 9 11:33AM ; [facility] Plan of Treatment - SINUSITIS ACUTE - Last Documented On 05/02/2011 3:37PM ; [facility] Levaquin 500 MG TABS, 1 daily, 10 days, 0 refills - Last Documented On 05/02/2011 3:37PM ; [facility] - Follow-up visit as needed with an office visit.. - Last Documented On 05/02/2011 3:37PM ; [facility] Patient to report if sx are not improving in the next few days - Last Documented On 05/02/2011 3:37PM ; [facility] Assessments Includes: Assessments from this encounter Findings - Acute sinusitis - Last Documented On 05/02/2011 3:37PM ; [facility] Medical Equipment - Implanted Devices Includes: Current Devices No Medical Equipment Recorded Medications Includes: Medications discussed during this encounter and other current Medications New / Renewed during this visit EDWINA MORGAN PA-C on 05/02/2011 Levaquin 500 MG OR TABS Provider: SYDNEY MORGAN PA-C 10 day supply: 10, 0 refills Diagnosis: [place] SINUSITIS NOS Pharmacy: [address], [address] - Last Documented On 05/02/2011 3:37PM By EDWINA MORGAN PA-C ; [facility] Current Medications (continue as prescribed) traMADol HCl 50 MG Oral Tablet 07/08/2023 Provider: Diagnosis: Last Documented On 4 4:34PM By NERIS REED ; [facility] Meloxicam 15 MG Oral Tablet 07/08/2023 Provider: Diagnosis: Last Documented On 4 4:34PM By NERIS REED ; [facility] Meclizine HCl 12.5 MG Oral Tablet 07/08/2023 Provide r: Diagnosis: take 1 tab q 8 hrs prn Last Documented On 4 4:33PM By NERIS REED ; [facility] Lisinopril 40 MG Oral Tablet 07/08/2023 Provider: Diagnosis: Last Documented On 4 4:32PM By NERIS REED ; [facility] diazePAM 5 MG Oral Tablet 07/08/2023 Provider: Diagnosis: 1 tab q 8hrs prn Last Documented On 4 4:31PM By NERIS REED ; [facility] SM Zinc 50 MG Oral Tablet 07/08/2023 Provider: Diagnosis: Last Documented On 4 4:35PM By NERIS REED ; [facility] Trulicity 3 MG/0.5ML Subcutaneous Solution Pen-injecto r 07/08/2023 Provider: Diagnosis: 1.5 mg sub q once weekly Last Documented On 4 4:35PM By NERIS REED ; [facility] glipiZIDE XL 2.5 MG Oral Tablet Extended Release 24 Ho ur 07/08/2023 Provider: Diagnosis: Last Documented On 4 4:26PM By NERIS REED ; [facility] Atorvastatin Calcium 40 MG Oral Tablet 07/08/2023 Pr ovider: Diagnosis: Last Documented On 4 4:28PM By NERIS REED ; [facility] Azelastine HCl 0.1% Nasal Solution 07/08/2023 Provid er: Diagnosis: Last Documented On 4 4:31PM By NERIS REED ; [facility] Fluticasone Propionate 50 MCG/ACT Nasal Suspension 02/2024 Provider: Diagnosis: spraay 1-2 sprays in each nostril daily prn Last Documented On 4 4:33PM By NERIS REED ; [facility] Pantoprazole Sodium 40 MG Oral Tablet Delayed Release 07/08/2023 Provider: Diagnosis: Last Documented On 4 4:34PM By NERIS REED ; [facility] Levothyroxine Sodium 112 MCG Oral Tablet 03/22/2022 Provider: JOSE LUIS MESA MD Diagnosis: Last Documented On 03/25/2022 10:18AM By Kristel Miller MA ; [facility] DULoxetine HCl 20 MG Oral Ca psule Delayed Release Particles 03/22/2022 Provider: JOSE LUIS MESA MD Diagnosis: Last Documented On 03/25/2022 10:18AM By Kristel Miller MA ; [facility] metFORMIN HCl 1000 MG Oral Tablet 03/16/2022 Provide r: LENORE KAY MD Diagnosis: Last Documented On 03/25/2022 10:18AM By Kristel Miller MA ; [facility] Latanoprost 0.005% Ophthalmic Solution 03/09/2022 Pr ovider: Diagnosis: Last Documented On 03/25/2022 10:18AM By Kristel Miller MA ; [facility] Past Medications on file Erythromycin 5 MG/GM Ophthalmic Ointment 07/08/2023 - 07/15/2023 Provider: KANDICE SWANSON DNP 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, 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 Apply small ribon to left ey e up to 6 times per day for 7 days Last Documented On 4 4:42PM By Kandice Swanson DNP ; [facility] Cefdinir 300 MG Oral Capsule 03/25/2022 - 04/01/2022 Provider: MARYANA RICE Diagnosis: Acute suppr otit is media w/o spon rupt ear drum, bilateral 1 CAPSULE TWO TIMES A DAY Last Documented On 03/25/2022 10:36AM By Maryana MICHELLE ; [facility] Diflucan 150 MG OR TABS 04/27/2011 - 05/04/2011 Provider: EDWINA Wilson Diagnosis: CANDIDIASIS SITE NOS TAKE ONE TABLET BY MOUTH EVERY DAY FOR 7 DAYS Last Documented On 04/27/2011 8:48AM By EDWINA MORGAN PA-C ; [facility] Cipro 250 MG OR TABS 04/05/2011 - 04/12/2011 Provider: AKILA ARTIS MD Diagnosis: 1 BID X 7DAYS Last Documented On 04/05/2011 1:17PM By Candy REED ; [facility] Lovastatin 10 MG OR TABS 11/25/2010 - 11/20/2011 Provi jim: AKILA ARTIS MD Diagnosis: TAKE ONE TABLET BY MOUTH AT BEDTIME Last Documented On 11/25/2010 11:23AM By Candy REED ; [facility] Zithromax Z-Shawn 250 MG OR TABS 05/26/2010 - 05/31/2010 Provider: AKILA QUEEN MD Diagnosis: Last Documented On 0 9:08AM By AKILA ARTIS MD ; [facility] Zithromax Z-Shawn 250 MG OR TABS 05/26/2010 - 06/05/2010 Provider: AKILA QUEEN MD Diagnosis: PLEASE GIVE HER A REFILL Last Documented On 0 9:08AM By AKILA ARTIS MD ; [facility] Flagyl 500 MG OR TABS 11/04/2009 - 11/11/2009 Provider : EDWINA MORGAN PA-C Diagnosis: VAGINITIS Last Documented On 11/04/2009 9:40AM By EDWINA MORGAN PA-C ; [facility] Nystatin [id number] UNIT/GM EX CREA 11/04/2009 - 12/04/2009 Provider: EDWINA Wilson Diagnosis: CANDIDIASIS SITE NOS apply to affected area tid-qid Last Documented On 11/04/2009 9:39AM By EDWINA MORGAN PA-C ; [facility] Diflucan 150 MG OR TABS 11/04/2009 - 11/11/2009 Provider: EDWINA Wilson Diagnosis: CANDIDIASIS SITE NOS one po for 7 days Last Documented On 11/04/2009 9:39AM By EDWINA MORGAN PA-C ; [facility] Lovastatin 10 MG OR TABS 10/20/2009 - 10/15/2010 Provi jim: AKILA ARTIS MD Diagnosis: 1HS - TAKE ONE TABLET BY MOUTH AT BEDTIME Last Documented On 10/20/2009 12:12PM By Candy REED ; [facility] Diflucan 150 MG OR TABS 09/28/2009 - 09/29/2009 Provid er: EDWINA MORGAN PA-C Diagnosis: FF - TAKE 1 TABLET BY MOUTH NOW Last Documented On 09/28/2009 3:09PM By EDWINA MORGAN PA-C ; [facility] Amaryl 4 MG OR TABS 02/04/2009 - 04/05/2009 Provider: AKILA HOOK M.D. Diagnosis: Last Documented On 02/04/2009 11:46AM By PRADEEP VELAZQUEZ ; [facility] Levothyroxine Sodium 125 MCG OR TABS 02/04/2009 - 04/05/2009 Provider: AKILA Canela Diagnosis: PRAMOD IN 6 WKS Last Documented On 02/04/2009 11:46AM By PRADEEP VELAZQUEZ ; [facility] Lotrisone 1-0.05% EX CREA 01/19/2009 - 02/18/2009 Prov ider: AKILA ARTIS MD Diagnosis: Last Documented On 9 1:10PM By AKILA ARTIS MD ; [facility] Mobic 15 MG OR TABS 01/13/2009 - 02/12/2009 Provider: Diagnosis: Last Documented On 9 3:56PM By AKILA ARTIS MD ; [facility] Medications Administered Includes: Administered Medications from this encounter No Administered Medications Recorded Vital Signs Includes: Vital Signs from this encounter Vital Name 05/02/2011 03:00P Blood Pressure Sitting (mmHg) 130/80 Pulse Rate-Sitting (bpm) 76 Respiration Rate (breaths/min) 20 Temp-Oral (F) 98.7 Weight (lb) 195 Last Documented: On 05/02/2011 3:20PM ; [facility] Results Includes: Results discussed during this encounter No Results Recorded For Specified Dates History of Present Illness Includes: History of Present Illness from this encounter MARLENE HWANG is a 55 year old female. 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 [employer] 12/27 Last Documented On 1 3:17PM ; [facility] Social history unchanged 01/13/2009 Last Documented On 1 3:17PM ; [facility] 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 Last Documented On 1 3:17PM ; [facility] Smoking Status Unknown Medical History Includes: Medical History addressed during this encounter Description Last Updated Taking OTC cold medication Leticia- [place] cold, 05/02/2011 Last Documented On 1 3:37PM ; [facility] Blood sugar check was not performed befo re breakfast 01/13/2009 Last Documented On 1 3:17PM ; [facility] Blood sugar check was not pe rformed two hours after a meal PT NOT CHECKING HER SUGAR REGULARLY 01/13/2009 Last Documented On 1 3:17PM ; [facility] Family History Includes: Family History addressed during this encounter No Family History Recorded Review of Systems Includes: Review of Systems from this encounter No Review of Systems Recorded Mental Status Includes: Mental Status from this encounter No Mental Status Recorded Functional Status Includes: Functional Status from this encounter No Functional Status Recorded Physical Exam Includes: Physical Exam from this encounter Allergies Includes: Active Allergies Substance Type Reaction Onset Date Resolved Date Statu s Penicillins Allergy 10/12/2008 Active Last Documented On 4 4:35PM ; [facility] Encounters Encounter Provider Location Date Check-In Time Check-Out Time Diagnosis SICK VISIT EDWINA MORGAN PA-C [facility] 05/02/20 11 3:06PM 3:37PM Sinusitis Acute Insurance Includes: Active Insurance Policies Plan Name Member ID Group # Subscriber Relationship Effect gretchen Dates 1 - MEDICARE PART A CLAIMS/NGS [id number] MOY HWANG Self 2 - [facility] [id number] MOY HWANG Self Clinical Notes Includes: Clinical Notes from this encounter No Clinical Notes Recorded
--- OUTSIDE RECORDS SUMMARY | 2024-07-04 10:21 | XMS_ITS | Encounter Summary ---
Author Organization [facility] Address [address] [place] [address] Phone Care Team Providers Care Retirement Plan Counselor Name Role Phone Maxim Barrios DPM Unavailable [phone] Alvarez Nelson MD Unavailable Mike Cardozo MD Unavailable Afshan Blankenship APRN, SENIOR PRODUCT DEVELOPMENT MANAGER Primary Care Provider [phone] Reason for Visit * Reason Comments Medication Refill Encounter Details Date Type Department Care Team (Late st Contact Info) Description 11/21/2023 Refill [facility] - Family Medicine [facility] [address] [place] [address] Josi Haque MD [address] [place] [address] Medication Refill Social History Tobacco Use Types Packs/Day Years Used Date Smoking Tobacco: Never Smokeless Tobacco: Never Alcohol Use Standard Drinks/Week Comments Yes 0 (1 standard drink = 0.6 oz pur e alcohol) occasionally [facility] Utilities Answer Date Recorded In the past 12 months has [employer] electric, gas, oil, or water company threatened to shut off services in your home? No 07/27/2023 Social Connection and Isolat ion Panel [NHANES] Answer Date Recorded In a typical week, how many times do you talk on the phone with family, friends, or neighbors? Twice a week 07/27/2023 How often do you get togethe r with friends or relatives? Once a week 07/27/2023 How often do you attend chur ch or latter day services? More than 4 times per year 07/27/2023 Do you belong to any clubs o r organizations such as gnosticist groups, unions, fraternal or athletic groups, or [...] Total Score - Questions 1-9 0 01/28 [facility] - Occupational Stress Questionnaire Answer Date Recorded [...] place to sleep or slept in a fci (including now)? 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 Visit [facility] - Endocrinology [facility] [address] [place] [address] Alvarez Nelson MD [address] [address] 10/07/2024 8:20 AM CDT [facility] [address] [place] [phone] Kevin Jin MD [address] [place] [address] Discharge Disposition: Discharged to home or Selfcare documented as of this encounter Visit Diagnoses Not on filedocumented in this encounter Additional Health Concerns Assessment Noted Time PHQ-9 Depression Total Score: 0 02/17/20 8:50 AM CDT documented as of this encounter Care Teams Retirement Plan Counselor Relationship Specialty Start Date End Date Afshan Blankenship, SUPERVISOR WET END, SENIOR PRODUCT DEVELOPMENT MANAGER [address] [place] [address] PCP - General Certified Nurse Practitioner 11/02/23 Maxim Barrios DPM Podiatry 04/07/15 Alvarez Nelson MD [address] [address] Consulting Physician Endocrinology 03/14/22 Mike Cardozo MD [address] [address] Consulting Physician Colon and Rectal Surgery 07/15/22 documented as of this encounter
--- OUTSIDE RECORDS SUMMARY | 2024-07-04 10:21 | XMS_ITS | Clinical Summary ---
Author Organization [facility] Address [address] [place] [address] Phone Care Team Providers Care Agricultural Economics Professor Name Role Phone AKILA ARTIS MD Primary Care Provider [phone] Reason for Visit and Chief Complaint The Chief Complaint is: Sore on Rt hand 1st knuckle-red & sore since Monday Problems Includes: Problems addressed during this encounter and other active Problems All Visits Onset Date Resolved Date Provider Condition S tatus HYPERLIPIDEMIA NEC/NOS 01/13/2009 MORENITA ARTIS MD Active Last Documented On 9 11:48PM ; [facility] Essential Hypertension Benign 01/13/2009 AKILA ARTIS MD Active Last Documented On 1 9:22AM ; [facility] Diabetes Mellitus Type 2 10/12/2008 AKILA LAM MD Active Last Documented On 1 9:22AM ; [facility] HYPOTHYROIDISM NOS 10/12/2008 AKILA Vergara MD Active Last Documented On 9 11:33AM ; [facility] Plan of Treatment - Return to the clinic if condition worsens or new symptoms arise - Last Documented On 11/08/2022 6:14PM ; [facility] - Go to the emergency room if condition worsens - Last Documented On 11/08/2022 6:14PM ; [facility] - Follow-up visit 5-7 days if symptoms persist or worsen - Last Documented On 11/08/2022 6:14PM ; [facility] - Follow-up visit as needed with an office visit. - Last Documented On 11/08/2022 6:14PM ; [facility] Instructions to patient Go to the emergency room if condition worsens Last Documented On 3 5:20PM ; [facility] Watch for signs/symptoms of infection, return to the clinic if seen Last Documented On 3 5:20PM ; [facility] Assessments Includes: Assessments from this encounter Findings - Furuncle on the finger(s) of the right hand - Last Documented On 11/08/2022 6:14PM ; [facility] Instructions Includes: Instructions from this encounter Instructions to patient Go to the emergency room if condition worsens Last Documented On 3 5:20PM ; [facility] Watch for signs/symptoms of infection, return to the clinic if seen Last Documented On 3 5:20PM ; [facility] Medical Equipment - Implanted Devices Includes: Current Devices No Medical Equipment Recorded Medications Includes: Medications discussed during this encounter and other current Medications New / Renewed during this visit TALAT MICHELLE-REYES on 11/08/2022 Mupirocin 2% External Ointment Provider: TALAT MICHELLE-REYES 10 day supply: 22 gram, 0 refills Diagnosis: Furuncle right hand apply BID to affected area x 10 days Pharmacy: [address], [address] - Last Documented On 4 4:26PM By NERIS REED ; [facility] Sulfamethoxazole-Trimethopri m 800-160 MG Oral Tablet Provider: TALAT COVARRUBIAS 10 day supply: 20 tablet, 0 refills Diagnosis: Furuncle right hand One tablet twice a day Pharmacy: [address], [address] - Last Documented On 4 4:26PM By NERIS REED ; [facility] Current Medications (continue as prescribed) traMADol HCl 50 MG Oral Tablet 07/08/2023 Provider: Diagnosis: Last Documented On 4 4:34PM By NERIS REED ; [facility] Meloxicam 15 MG Oral Tablet 07/08/2023 Provider: Diagnosis: Last Documented On 4 4:34PM By NERIS REED ; [facility] Meclizine HCl 12.5 MG Oral Tablet 07/08/2023 Provide r: Diagnosis: take 1 tab q 8 hrs prn Last Documented On 4 4:33PM By NERIS REED ; [facility] Lisinopril 40 MG Oral Tablet 07/08/2023 Provider: Diagnosis: Last Documented On 4 4:32PM By NERIS REED ; [facility] diazePAM 5 MG Oral Tablet 07/08/2023 Provider: Diagnosis: 1 tab q 8hrs prn Last Documented On 4 4:31PM By NERIS REED ; [facility] SM Zinc 50 MG Oral Tablet 07/08/2023 Provider: Diagnosis: Last Documented On 4 4:35PM By NERIS REED ; [facility] Trulicity 3 MG/0.5ML Subcutaneous Solution Pen-injecto r 07/08/2023 Provider: Diagnosis: 1.5 mg sub q once weekly Last Documented On 4 4:35PM By NERIS REED ; [facility] glipiZIDE XL 2.5 MG Oral Tablet Extended Release 24 Ho ur 07/08/2023 Provider: Diagnosis: Last Documented On 4 4:26PM By NERIS REED ; [facility] Atorvastatin Calcium 40 MG Oral Tablet 07/08/2023 Pr ovider: Diagnosis: Last Documented On 4 4:28PM By NERIS REED ; [facility] Azelastine HCl 0.1% Nasal Solution 07/08/2023 Provid er: Diagnosis: Last Documented On 4 4:31PM By NERIS REED ; [facility] Fluticasone Propionate 50 MCG/ACT Nasal Suspension 02/2024 Provider: Diagnosis: spraay 1-2 sprays in each nostril daily prn Last Documented On 4 4:33PM By NERIS REED ; [facility] Pantoprazole Sodium 40 MG Oral Tablet Delayed Release 07/08/2023 Provider: Diagnosis: Last Documented On 4 4:34PM By NERIS REED ; [facility] Levothyroxine Sodium 112 MCG Oral Tablet 03/22/2022 Provider: JOSE LUIS MESA MD Diagnosis: Last Documented On 03/25/2022 10:18AM By Kristel Miller MA ; [facility] DULoxetine HCl 20 MG Oral Ca psule Delayed Release Particles 03/22/2022 Provider: JOSE LUIS MESA MD Diagnosis: Last Documented On 03/25/2022 10:18AM By Kristel Miller MA ; [facility] metFORMIN HCl 1000 MG Oral Tablet 03/16/2022 Provide r: LENORE KAY MD Diagnosis: Last Documented On 03/25/2022 10:18AM By Kristel Miller MA ; [facility] Latanoprost 0.005% Ophthalmic Solution 03/09/2022 Pr ovider: Diagnosis: Last Documented On 03/25/2022 10:18AM By Kristel Miller MA ; [facility] Past Medications on file Erythromycin 5 MG/GM Ophthalmic Ointment 07/08/2023 - 07/15/2023 Provider: KANDICE SWANSON DNP Diagnosis: Hordeolum velvet weaver um unspecified eye, 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 Apply small ribon to left ey e up to 6 times per day for 7 days Last Documented On 4 4:42PM By Kandice Swanson DNP ; [facility] Cefdinir 300 MG Oral Capsule 03/25/2022 - 04/01/2022 Provider: MARYANA RICE Diagnosis: Acute suppr otit is media w/o spon rupt ear drum, bilateral 1 CAPSULE TWO TIMES A DAY Last Documented On 03/25/2022 10:36AM By Maryana MICHELLE ; [facility] Levaquin 500 MG OR TABS 05/02/2011 - 05/12/2011 Provid er: EDWINA MORGAN PA-C Diagnosis: ACUTE SINUSITIS NOS Last Documented On 05/02/2011 3:37PM By EDWINA MORGAN PA-C ; [facility] Diflucan 150 MG OR TABS 04/27/2011 - 05/04/2011 Provider: EDWINA Wilson Diagnosis: CANDIDIASIS SITE NOS TAKE ONE TABLET BY MOUTH EVERY DAY FOR 7 DAYS Last Documented On 04/27/2011 8:48AM By EDWINA MORGAN PA-C ; [facility] Cipro 250 MG OR TABS 04/05/2011 - 04/12/2011 Provider: KAILA ARTIS MD Diagnosis: 1 BID X 7DAYS Last Documented On 04/05/2011 1:17PM By Candy REED ; [facility] Lovastatin 10 MG OR TABS 11/25/2010 - 11/20/2011 Provi jim: AKILA ARTIS MD Diagnosis: TAKE ONE TABLET BY MOUTH AT BEDTIME Last Documented On 11/25/2010 11:23AM By Candy REED ; [facility] Zithromax Z-Shawn 250 MG OR TABS 05/26/2010 - 05/31/2010 Provider: AKILA QUEEN MD Diagnosis: Last Documented On 0 9:08AM By AKILA ARTIS MD ; [facility] Zithromax Z-Shawn 250 MG OR TABS 05/26/2010 - 06/05/2010 Provider: AKILA QUEEN MD Diagnosis: PLEASE GIVE HER A REFILL Last Documented On 0 9:08AM By AKILA ARTIS MD ; [facility] Flagyl 500 MG OR TABS 11/04/2009 - 11/11/2009 Provider : EDWINA MROGAN PA-C Diagnosis: VAGINITIS Last Documented On 11/04/2009 9:40AM By EDWINA MORGAN PA-C ; [facility] Nystatin [id number] UNIT/GM EX CREA 11/04/2009 - 12/04/2009 Provider: EDWINA Wilson Diagnosis: CANDIDIASIS SITE NOS apply to affected area tid-qid Last Documented On 11/04/2009 9:39AM By EDWINA MORGAN PA-C ; [facility] Diflucan 150 MG OR TABS 11/04/2009 - 11/11/2009 Provider: EDWINA Wilson Diagnosis: CANDIDIASIS SITE NOS one po for 7 days Last Documented On 11/04/2009 9:39AM By EDWINA MORGAN PA-C ; [facility] Lovastatin 10 MG OR TABS 10/20/2009 - 10/15/2010 Provi jim: AKILA ARTIS MD Diagnosis: 1HS - TAKE ONE TABLET BY MOUTH AT BEDTIME Last Documented On 10/20/2009 12:12PM By Candy REED ; [facility] Diflucan 150 MG OR TABS 09/28/2009 - 09/29/2009 Provid er: EDWINA MORGAN PA-C Diagnosis: FF - TAKE 1 TABLET BY MOUTH NOW Last Documented On 09/28/2009 3:09PM By EDWINA MORGAN PA-C ; [facility] Amaryl 4 MG OR TABS 02/04/2009 - 04/05/2009 Provider: AKILA HOOK M.D. Diagnosis: Last Documented On 02/04/2009 11:46AM By PRADEEP VELAZQUEZ ; [facility] Levothyroxine Sodium 125 MCG OR TABS 02/04/2009 - 04/05/2009 Provider: AKILA aCnela Diagnosis: PRAMOD IN 6 WKS Last Documented On 02/04/2009 11:46AM By PRADEEP VELAZQUEZ ; [facility] Lotrisone 1-0.05% EX CREA 01/19/2009 - 02/18/2009 Prov ider: AKILA ARTIS MD Diagnosis: Last Documented On 9 1:10PM By AKILA ARTIS MD ; [facility] Mobic 15 MG OR TABS 01/13/2009 - 02/12/2009 Provider: Diagnosis: Last Documented On 9 3:56PM By AKILA ARTIS MD ; [facility] Medications Administered Includes: Administered Medications from this encounter No Administered Medications Recorded Vital Signs Includes: Vital Signs from this encounter Vital Name 11/08/2022 05:04P Blood Pressure Sitting L 144/70 BP Cuff Size Regular Pulse Rate-Sitting (bpm) 95 Pulse Rhythm Regular Respiration Rate (breaths/min) 20 Temp-Oral (F) 98.1 Height (in) 61 Weight (lb) 170 Body Mass Index 32.1 Body Surface Area 1.8 Oxygen Saturation (%) 98 Last Documented: On 11/08/2022 5:06PM ; [facility] Results Includes: Results discussed during this encounter No Results Recorded For Specified Dates History of Present Illness Includes: History of Present Illness from this encounter MARLENE HWANG is a 67 year old female. Source of patient information was patient ? Allergy list reviewed ? Medication list reviewed ? Medication list reviewed - No fever - No chills - No headache - No sinus pain - No neck pain - No difficulty closing eye - No bilateral earache - No hoarseness - No sore throat - No feeling of tightness in the throat - No vomiting - No abdominal pain - No diarrhea - Red rash pt to clinic for a boil on right 1st knuckle she thought she had a thorn in it and squeezed it and it has been getting red and tender she thinks her last tetanus has been with in 10 years but will double check with [facility] Social History Description Last Updated Tobacco non-user 03/25/2022 Last Documented On 3 5:04PM ; [facility] Occupation [employer] 12/27 Last Documented On 3 5:04PM ; [facility] Social history unchanged 01/13/2009 Last Documented On 3 5:04PM ; [facility] 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 Purpo se of and use of medication discussed.~ Last Documented On 3 5:20PM ; [facility] plan of care reviewed and agreed to by t he patient Last Documented On 3 5:18PM ; [facility] Clinical summary provided to patient Last Documented On 3 5:20PM ; [facility] Medical History Includes: Medical History addressed during this encounter Description Last Updated Taking OTC medications 03/25/2022 Last Documented On 3 5:04PM ; [facility] Taking OTC cold medication Leticia- Conger cold, 05/02/2011 Last Documented On 3 5:04PM ; [facility] Family History Includes: Family History addressed during this encounter No Family History Recorded Review of Systems Includes: Review of Systems from this encounter Systemic: Generalized pain. No edema. Head: No headache. Eyes: No vision problems. Cardiovascular: No chest pain or discomfort. Pulmonary: No shortness of breath. Gastrointestinal: No nausea and no abdominal pain. Neurological: No dizziness. Skin: Red rash. Mental Status Includes: Mental Status from this encounter No Mental Status Recorded Functional Status Includes: Functional Status from this encounter No Functional Status Recorded Physical Exam Includes: Physical Exam from this encounter Allergies Includes: Active Allergies Substance Type Reaction Onset Date Resolved Date Statu s Penicillins Allergy 10/12/2008 Active Last Documented On 4 4:35PM ; [facility] Encounters Encounter Provider Location Date Check-In Time Check-Out Time Diagnosis WALK IN PATIENT - [facility] 11/09/19 23 4:58PM 5:14PM Furuncle on Finger Right Hand Insurance Includes: Active Insurance Policies Plan Name Member ID Group # Subscriber Relationship Effect gretchen Dates 1 - MEDICARE PART A CLAIMS/NGS [id number] MOY HWANG Self 2 - [facility] [id number] MOY HWANG Self Clinical Notes Includes: Clinical Notes from this encounter * Progress note Date Encounter Last Documented by 11/08/2022 WALK IN PATIENT - ESTABLISHED PT Last documented on 11/08/2022; 6[facility]14 PM[facility] Active Problems & Conditions - Diabetes Mellitus Type 2 - Essential Hypertension Benign - HYPERLIPIDEMIA NEC/NOS - HYPOTHYROIDISM NOS Chief Complaint The Chief Complaint is: Sore on Rt hand 1st knuckle-red & sore since Monday. History of Present Illness MOY HWANG is a 67 year old female. Source of patient information was patient - Allergy list reviewed - Medication list reviewed - Medication list reviewed - No fever - No chills - No headache - No sinus pain - No neck pain - No difficulty closing eye - No bilateral earache - No hoarseness - No sore throat - No feeling of tightness in the throat - No vomiting - No abdominal pain - No diarrhea - Red rash pt to clinic for a boil on right 1st knuckle she thought she had a thorn in it and squeezed it and it has been getting red and tender she thinks her last tetanus has been with in 10 years but will double check with [facility] Current Medication - Amaryl 4 MG Tablet 1 daily 1QD - TAKE ONE TABLET BY MOUTH EVERY DAY, 30 days, Prescribe As Needed. - Atorvastatin Calcium 20 MG Oral Tablet 90 days, 0 refills - DULoxetine HCl 20 MG Oral Capsule Delayed Release Particles 90 days, 0 refills - glipiZIDE 5 MG Oral Tablet 90 days, 0 refills - Latanoprost 0.005% Ophthalmic Solution 25 days, 0 refills - Levothyroxine Sodium 125 MCG Tablet 1 daily 1QD - TAKE ONE TABLET BY MOUTH EVERY DAY, 90 days, Prescribe As Needed. - Levothyroxine Sodium 112 MCG Oral Tablet 90 days, 0 refills - Magnesium Oxide 400 MG Tablet 1 daily 8 days, Prescribe As Needed. - metFORMIN HCl 500 MG Tablet TAKE 2 BID 30 days, Prescribe As Needed. - metFORMIN HCl 1000 MG Oral Tablet 90 days, 0 refills - Metoprolol Succinate ER 25 MG Tablet Extended Release 24 Hour 1 daily TAKE ONE TABLET BY MOUTH EVERY DAY, 30 days, Prescribe As Needed. - Metoprolol Succinate ER 50 MG Oral Tablet Extended Release 24 Hour 90 days, 0 refills - Mobic 15 MG Tablet 1 daily 1QD - TAKE ONE TABLET BY MOUTH EVERY DAY, 30 days, Prescribe As Needed. - Nix Complete Lice System 1% Liquid as directed 30 days, Prescribe As Needed. - Pioglitazone HCl 30 MG Oral Tablet 90 days, 0 refills - Spironolactone 50 MG Tablet 1 daily TAKE ONE TABLET BY MOUTH EVERY DAY, 90 days, Prescribe As Needed. - Toprol XL 25 MG Tablet Extended Release 24 Hour 1 daily 1QD - TAKE ONE TABLET BY MOUTH EVERY DAY, 30 days, Prescribe As Needed. Past Medical/Surgical History Reported: Medications: Taking OTC cold medication Leticia- Conger cold, Social History Social history unchanged. Tobacco use: Tobacco non-user. 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 Allergies - Penicillins Review Of Systems Systemic: Generalized pain. No edema. Head: No headache. Eyes: No vision problems. Cardiovascular: No chest pain or discomfort. Pulmonary: No shortness of breath. Gastrointestinal: No nausea and no abdominal pain. Neurological: No dizziness. Skin: Red rash. Physical Findings - Vitals taken 11/08/2022 05:04 pm BP-Sitting L 144/70 mmHg BP Cuff Size Regular Pulse Rate-Sitting 95 bpm Pulse Rhythm Regular Respiration Rate 20 per min Temp-Oral 98.1 F Height 61 in Weight 170 lbs Body Mass Index 32.1 kg/m2 Body Surface Area 1.8 m2 Oxygen Saturation 98 % General Appearance: - Alert. - Not acutely ill. Nose: General/bilateral: Discharge: - No nasal discharge. Lungs: - Clear to auscultation. Cardiovascular: Heart Sounds: - S1 normal. - S2 normal. Skin: - Showed erythema Furuncle noted right first knuckle surrounding skin is erythemic warm and tender to palpation serous drainage no foreign body identified. Assessment - Furuncle on the finger(s) of the right hand Therapy - The options include close observation. - Watch for signs/symptoms of infection, return to the clinic if seen. - Clinical summary provided to patient. - Plan of care reviewed and agreed to by the patient. Pt to use prescription as ordered. Purpose of and use of medication discussed. . Discussed Finish full prescription of antibiotics. Drink 8-8oz glasses of water a day. Tylenol or Motrin for pain/fever. If diarrhea develops please eat yogurt daily and BRAT diet Warm soaks to area twice a day. Plan StartCited - Furuncle right hand Sulfamethoxazole-Trimethoprim 800-160 MG tablet One tablet twice a day, 10 days, 0 refills Mupirocin 2% gram apply BID to affected area x 10 days, 10 days, 0 refills EndCited - Return to the clinic if condition worsens or new symptoms arise - Go to the emergency room if condition worsens - Follow-up visit 5-7 days if symptoms persist or worsen - Follow-up visit as needed with an office visit. Health Reminders - Assess Blood Pressure satisfied 11/08/2022. - Assess BMI satisfied 11/08/2022. - Assess Need for CT Lung Screen satisfied 11/08/2022. - Assess Tobacco Use satisfied 11/08/2022. - Blood Pressure Measurement satisfied 11/08/2022.
--- OUTSIDE RECORDS SUMMARY | 2024-07-04 10:21 | XMS_ITS | Encounter Summary ---
Author Organization [facility] Address [address] [place] [address] Phone Care Team Providers Care Conflicts Analyst Name Role Phone Josi Haque MD Primary Care Provider [phone] Maxim Barrios DPM Unavailable [phone] Alvarez Nelson MD Unavailable Mike Cardozo MD Unavailable Enmanuel Phipps MD Primary Care Provider [phone] Afshan Blankenship APRN, [facility] Primary Care Provider [phone] Reason for Visit * Reason Comments Medication Refill Encounter Details Date Type Department Care Team (Late st Contact Info) Description 03/21/2022 Refill [facility] - Family Medicine [facility] [address] [place] [address] Josi Haque MD [address] [place] [address] Medication Refill Social History Tobacco Use Types [...] suspected to have Coronavirus/COVID-19? No / Unsure 03/23/2022 8:33 AM CDT documented as of this encounter Miscellaneous Notes * Telephone Encounter - Josi Haque MD - 03/22/2022 12:03 PM CDT Stop meloxicam due to anemia * Telephone Encounter - Luciana Terry RN - 03/22/2022 8:42 AM CDT Medication failed the protocol, provider to review and approve the medication order if appropriate. Requested Prescriptions Pending Prescriptions Disp Refills levothyroxine (SYNTHROID) 112 MCG Tablet [Pharmacy Med Name: LEVOTHYROXINE 112 MCG TABLET] 90 Tablet 1 Sig: TAKE 1 TABLET BY MOUTH EVERY DAY Thyroid Hormones Protocol Failed - 03/21/2022 6:30 PM Failed - Normal TSH in past 12 months TSH Date Value Ref Range Status 10/08/2020 0.825 0.270 - 4.200 mIU/L Final Passed - Visit with relevant provider in past 12 months or upcoming 90 days Recent Visits Date Type Provider Dept 10/12/21 Office Visit Josi Haque MD [facility] 04/14/21 Office Visit Josi Haque MD [facility] Showing recent visits within past 365 days and meeting all other requirements Future Appointments Date Type Provider Dept 04/14/22 Appointment Josi Haque MD [facility] Showing future appointments within next 90 days and meeting all other requirements DULoxetine (CYMBALTA) [address] Particles [Pharmacy Med Name: DULOXETINE HCL DR 20 MG CAP] 90 Capsule 1 Sig: TAKE 1 CAPSULE BY MOUTH EVERY DAY SNRI (6 Month Refill Only) Protocol Failed - 03/21/2022 6:30 PM Failed - Has an encounter in the past 6 months with a depression or anxiety visit diagnosis Passed - Visit with relevant provider in past 6 months or upcoming 90 days Recent Visits Date Type Provider Dept 10/12/21 Office Visit Josi Haque MD [facility] Showing recent visits within past 182 days and meeting all other requirements Future Appointments Date Type Provider Dept 04/14/22 Appointment Josi Haque MD [facility] Showing future appointments within next 90 days and meeting all other requirements Passed - Patient has established therapy with Serotonin-Norepinephrine Reuptake Inhibitors for at least 6 months meloxicam (MOBIC) 15 MG Tablet [Pharmacy Med Name: MELOXICAM 15 MG TABLET] 90 Tablet 0 Sig: TAKE 1 TABLET BY MOUTH EVERY DAY NSAIDs Protocol Failed - 03/21/2022 6:30 PM Failed - Not delegated, patient not between 1 and 65 years of age Failed - HGB greater than 10 or HCT greater than 30 in past 12 months HEMOGLOBIN (HGB) Date Value Ref Range Status 10/08/2020 12.5 12.0 - 15.8 g/dL Final HEMATOCRIT (HCT) Date Value Ref Range Status 10/08/2020 39.9 36.0 - 47.0 % Final Passed - Normal serum creatinine in past 12 months CREATININE, BLOOD Date Value Ref Range Status 04/14/2021 0.65 0.60 - 1.10 mg/dL Final Passed - Visit with relevant provider in past 12 months or upcoming 90 days Recent Visits Date Type Provider Dept 10/12/21 Office Visit Josi Haque MD [facility] 04/14/21 Office Visit Josi Haque MD [facility] Showing recent visits within past 365 days and meeting all other requirements Future Appointments Date Type Provider Dept 04/14/22 Appointment Josi Haque MD [facility] Showing future appointments within next 90 days and meeting all other requirements Passed - No matching NSAID med order in past 45 days No matching medication orders between 02/05/2022 8:42 AM and 03/22/2022 8:42 AM Passed - AST less than 55 or ALT less than 90 in past 12 months SGOT (AST) Date Value Ref Range Status 04/14/2021 21 <=32 U/L Final SGPT (ALT) Date Value Ref Range Status 04/14/2021 24 <=41 U/L Final documented in this encounter Plan of Treatment Upcoming Encounters Date Type Department Care Team (Late st Contact Info) Description 07/19/2024 10:00 AM PAPIER MACHE MOLDER Office Visit [facility] - Endocrinology [facility] [address] [place] [phone] Alvarez Nelson MD [address] [address] 10/07/2024 8:20 AM CDT Office Visit [facility] Oncology Services [address] [place] [address] Kevin Jin MD [address] [place] [address] Discharge Disposition: Discharged to home or Selfcare documented as of this encounter Visit Diagnoses Not on filedocumented in this encounter Additional Health Concerns Assessment Noted Time PHQ-9 Depression Total Score: 0 10/09/19 21 10:00 AM CDT documented as of this encounter Care Teams Conflicts Analyst Relationship Specialty Start Date End Date Josi Haque MD [address] [place] [address] PCP - General Family Medicine 04/07/15 05/07/23 Enmanuel Phipps MD [address] [place] [address] PCP - General Family Medicine 05/08/23 11/01/23 Afshan Blankenship, SINGEING TORCH OPERATOR, SOFTWARE CONFIGURATION ANALYST [address] [place] [address] PCP - General Certified Nurse Practitioner 11/02/23 Maxim Barrios DPM [address] [place] [address] Podiatry 04/07/15 Alvarez Nelson MD [address] [address] Consulting Physician Endocrinology 03/14/22 Mike Cardozo MD [address]2 [facility] [address] [place] [address] Consulting Physician Colon and Rectal Surgery 07/15/22 documented as of this encounter
--- OUTSIDE RECORDS SUMMARY | 2024-07-04 10:21 | XMS_ITS | Clinical Summary ---
Author Organization [facility] Address [address] [place] [address] Phone Care Team Providers Care Label Cutter Name Role Phone AKILA ARTIS MD Primary Care Provider [phone] Reason for Visit and Chief Complaint * PHONE CALL Problems Includes: Problems addressed during this encounter and other active Problems All Visits Onset Date Resolved Date Provider Condition S tatus HYPERLIPIDEMIA NEC/NOS 01/13/2009 MORENITA ARTIS MD Active Last Documented On 9 11:48PM ; [facility] Essential Hypertension Benign 01/13/2009 AKILA ARTIS MD Active Last Documented On 1 9:22AM ; [facility] Diabetes Mellitus Type 2 10/12/2008 AKILA LAM MD Active Last Documented On 1 9:22AM ; [facility] HYPOTHYROIDISM NOS 10/12/2008 AKILA Vergara MD Active Last Documented On 9 11:33AM ; [facility] Plan of Treatment - OTHER - Last Documented On 04/04/2011 10:17AM ; [facility] *Phone Call PLEASE SEND ORDER - Last Documented On 04/04/2011 10:17AM ; [facility] Assessments Includes: Assessments from this encounter No Assessments Recorded Medical Equipment - Implanted Devices Includes: Current Devices No Medical Equipment Recorded Medications Includes: Medications discussed during this encounter and other current Medications Current Medications (continue as prescribed) traMADol HCl 50 MG Oral Tablet 07/08/2023 Provider: Diagnosis: Last Documented On 4:34PM By NERIS REED ; [facility] Meloxicam 15 MG Oral Tablet 07/08/2023 Provider: Diagnosis: Last Documented On 4 4:34PM By NERIS REED ; [facility] Meclizine HCl 12.5 MG Oral Tablet 07/08/2023 Provide r: Diagnosis: take 1 tab q 8 hrs prn Last Documented On 4 4:33PM By NERIS REED ; [facility] Lisinopril 40 MG Oral Tablet 07/08/2023 Provider: Diagnosis: Last Documented On 4 4:32PM By NERIS REED ; [facility] diazePAM 5 MG Oral Tablet 07/08/2023 Provider: Diagnosis: 1 tab q 8hrs prn Last Documented On 4 4:31PM By NERIS REED ; [facility] SM Zinc 50 MG Oral Tablet 07/08/2023 Provider: Diagnosis: Last Documented On 4 4:35PM By NERIS REED ; [facility] Trulicity 3 MG/0.5ML Subcutaneous Solution Pen-injecto r 07/08/2023 Provider: Diagnosis: 1.5 mg sub q once weekly Last Documented On 4 4:35PM By NERIS REED ; [facility] glipiZIDE XL 2.5 MG Oral Tablet Extended Release 24 Ho ur 07/08/2023 Provider: Diagnosis: Last Documented On 4 4:26PM By NERIS REED ; [facility] Atorvastatin Calcium 40 MG Oral Tablet 07/08/2023 Pr ovider: Diagnosis: Last Documented On 4 4:28PM By NERIS REED ; [facility] Azelastine HCl 0.1% Nasal Solution 07/08/2023 Provid er: Diagnosis: Last Documented On 4 4:31PM By NERIS REED ; [facility] Fluticasone Propionate 50 MCG/ACT Nasal Suspension 02/2024 Provider: Diagnosis: spraay 1-2 sprays in each nostril daily prn Last Documented On 4 4:33PM By NERIS REED ; [facility] Pantoprazole Sodium 40 MG Oral Tablet Delayed Release 07/08/2023 Provider: Diagnosis: Last Documented On 4 4:34PM By NERIS REED ; [facility] Levothyroxine Sodium 112 MCG Oral Tablet 03/22/2022 Provider: JOSE LUIS MESA MD Diagnosis: Last Documented On 03/25/2022 10:18AM By Kristel Miller MA ; [facility] DULoxetine HCl 20 MG Oral Ca psule Delayed Release Particles 03/22/2022 Provider: JOSE LUIS MESA MD Diagnosis: Last Documented On 03/25/2022 10:18AM By Kristel Miller MA ; [facility] metFORMIN HCl 1000 MG Oral Tablet 03/16/2022 Provide r: LENORE KAY MD Diagnosis: Last Documented On 03/25/2022 10:18AM By Kristel Miller MA ; [facility] Latanoprost 0.005% Ophthalmic Solution 03/09/2022 Pr ovider: Diagnosis: Last Documented On 03/25/2022 10:18AM By Kristel Miller MA ; [facility] Past Medications on file Erythromycin 5 MG/GM Ophthalmic Ointment 07/08/2023 - 07/15/2023 Provider: KANDICE SWANSON DNP Diagnosis: [employer]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, 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 Apply small ribon to left ey e up to 6 times per day for 7 days Last Documented On 4 4:42PM By Kandice Swanson DNP ; [facility] Cefdinir 300 MG Oral Capsule 03/25/2022 - 04/01/2022 Provider: MARYANA RICE Diagnosis: Acute suppr otit is media w/o spon rupt ear drum, bilateral 1 CAPSULE TWO TIMES A DAY Last Documented On 03/25/2022 10:36AM By Maryana MICHELLE ; [facility] Levaquin 500 MG OR TABS 05/02/2011 - 05/12/2011 Provid er: EDWINA MORGAN PA-C Diagnosis: ACUTE SINUSITIS NOS Last Documented On 05/02/2011 3:37PM By EDWINA MORGAN PA-C ; [facility] Diflucan 150 MG OR TABS 04/27/2011 - 05/04/2011 Provider: EDWINA Wilson Diagnosis: CANDIDIASIS SITE NOS TAKE ONE TABLET BY MOUTH EVERY DAY FOR 7 DAYS Last Documented On 04/27/2011 8:48AM By EDWINA MORGAN PA-C ; [facility] Cipro 250 MG OR TABS 04/05/2011 - 04/12/2011 Provider: AKILA ARTIS MD Diagnosis: 1 BID X 7DAYS Last Documented On 04/05/2011 1:17PM By Candy REED ; [facility] Lovastatin 10 MG OR TABS 11/25/2010 - 11/20/2011 Provi jim: AKILA ARTIS MD Diagnosis: TAKE ONE TABLET BY MOUTH AT BEDTIME Last Documented On 11/25/2010 11:23AM By Candy REED ; [facility] Zithromax Z-Shawn 250 MG OR TABS 05/26/2010 - 05/31/2010 Provider: AKILA QUEEN MD Diagnosis: Last Documented On 0 9:08AM By AKILA ARTIS MD ; [facility] Zithromax Z-Shawn 250 MG OR TABS 05/26/2010 - 06/05/2010 Provider: AKILA QUEEN MD Diagnosis: PLEASE GIVE HER A REFILL Last Documented On 0 9:08AM By AKILA ARTIS MD ; [facility] Flagyl 500 MG OR TABS 11/04/2009 - 11/11/2009 Provider : EDWINA MORGAN PA-C Diagnosis: VAGINITIS Last Documented On 11/04/2009 9:40AM By EDWINA MORGAN PA-C ; [facility] Nystatin [id number] UNIT/GM EX CREA 11/04/2009 - 12/04/2009 Provider: EDWINA Wilson Diagnosis: CANDIDIASIS SITE NOS apply to affected area tid-qid Last Documented On 11/04/2009 9:39AM By EDWINA MORGAN PA-C ; [facility] Diflucan 150 MG OR TABS 11/04/2009 - 11/11/2009 Provider: EDWINA Wilson Diagnosis: CANDIDIASIS SITE NOS one po for 7 days Last Documented On 11/04/2009 9:39AM By EDWINA MORGAN PA-C ; [facility] Lovastatin 10 MG OR TABS 10/20/2009 - 10/15/2010 Provi jim: AKILA ARTIS MD Diagnosis: 1HS - TAKE ONE TABLET BY MOUTH AT BEDTIME Last Documented On 10/20/2009 12:12PM By Candy REED ; [facility] Diflucan 150 MG OR TABS 09/28/2009 - 09/29/2009 Provid er: EDWINA MORGAN PA-C Diagnosis: FF - TAKE 1 TABLET BY MOUTH NOW Last Documented On 09/28/2009 3:09PM By EDWINA MORGAN PA-C ; [facility] Amaryl 4 MG OR TABS 02/04/2009 - 04/05/2009 Provider: AKILA HOOK M.D. Diagnosis: Last Documented On 02/04/2009 11:46AM By PRADEEP VELAZQUEZ ; [facility] Levothyroxine Sodium 125 MCG OR TABS 02/04/2009 - 04/05/2009 Provider: AKILA Canela Diagnosis: PRAMOD IN 6 WKS Last Documented On 02/04/2009 11:46AM By PRADEEP VELAZQUEZ ; [facility] Lotrisone 1-0.05% EX CREA 01/19/2009 - 02/18/2009 Prov ider: AKILA ARTIS MD Diagnosis: Last Documented On 9 1:10PM By AKILA ARTIS MD ; [facility] Mobic 15 MG OR TABS 01/13/2009 - 02/12/2009 Provider: Diagnosis: Last Documented On 9 3:56PM By AKILA ARTIS MD ; [facility] Medications Administered Includes: Administered Medications from this encounter No Administered Medications Recorded Results Includes: Results discussed during this encounter No Results Recorded For Specified Dates History of Present Illness Includes: History of Present Illness from this encounter No History of Present Illness Recorded Social History Description Last Updated Not smoking 07/08/2023 Last Documented On 1 10:07AM ; [facility] 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[employer] [facility] 12/27 Last Documented On 1 10:07AM ; [facility] Social history unchanged 01/13/2009 Last Documented On 1 10:07AM ; [facility] 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 Last Documented On 1 10:07AM ; [facility] Smoking Status Unknown Medical History Includes: Medical History addressed during this encounter Description Last Updated Blood sugar check was not performed befo re breakfast 01/13/2009 Last Documented On 1 10:07AM ; [facility] Blood sugar check was not pe rformed two hours after a meal PT NOT CHECKING HER SUGAR REGULARLY 01/13/2009 Last Documented On 1 10:07AM ; [facility] Family History Includes: Family History addressed during this encounter No Family History Recorded Review of Systems Includes: Review of Systems from this encounter No Review of Systems Recorded Mental Status Includes: Mental Status from this encounter No Mental Status Recorded Functional Status Includes: Functional Status from this encounter No Functional Status Recorded Physical Exam Includes: Physical Exam from this encounter No Physical Exam Recorded Allergies Includes: Active Allergies Substance Type Reaction Onset Date Resolved Date Statu s Penicillins Allergy 10/12/2008 Active Last Documented On 4 4:35PM ; [facility] Encounters Encounter Provider Location Date Check-In Time Check-Out Time Diagnosis * PHONE CALL AKILA ARTIS MD 04/04/2011 10:07AM 11:59PM Insurance Includes: Active Insurance Policies Plan Name Member ID Group # Subscriber Relationship Effect gretchen Dates 1 - MEDICARE PART A CLAIMS/NGS [id number] MOY Noyola WOSUZANNA Self 2 - [facility] [id number] MOY HWANG Self Clinical Notes Includes: Clinical Notes from this encounter No Clinical Notes Recorded
--- OUTSIDE RECORDS SUMMARY | 2024-07-04 10:21 | XMS_ITS | Encounter Summary ---
Author Organization [facility] Address [address] [place] [address] Phone Care Team Providers Care Vacuum Pan Operator Name Role Phone Maxim Barrios DPM Unavailable [phone] Alvarez Nelson MD Unavailable Mike Cardozo MD Unavailable Afshan Blankenship APRN, TRANSITION SOCIAL WORKER Primary Care Provider [phone] Encounter Details Date Type Department Care Team (Late st Contact Info) Description 05/23/2024 Telephone [facility] - Endocrinology - [place] [address] [place] [address] Alvarez Nelson MD [address] [address] Social History Tobacco Use Types Packs/Day Years Used Date Smoking Tobacco: Never Smokeless Tobacco: Never Alcohol Use Standard Drinks/Week Comments Yes 0 (1 standard drink = 0.6 oz pur e alcohol) occasionally C Utilities Answer Date Recorded In the past 12 months has [employer] electric, gas, oil, or water company threatened [...] often do you attend chur ch or church services? More than 4 times per year 07/27/2023 Do you belong to any clubs o r organizations such as religion groups, unions, fraternal or athletic groups, or [...] Score - Questions 1-9 0 07/0 09/2023 [facility] Questionnaire Answer Date Recorded [...] place to sleep or slept in a intermediate (including now)? No 07/27/2023 Education Answer Date [...] Telephone Encounter - Soraida Mayo RN - 05/23/2024 12:19 PM HISTORICAL RECORDS ADMINISTRATOR Fax received from [employer] this morning that patient was approved until 04/2025. Patient notified. ORICAL RECORDS ADMINISTRATOR documented in this encounter Plan of Treatment Upcoming Encounters Date Type Department Care Team (Late st Contact Info) Description 07/19/2024 10:00 AM HISTORICAL RECORDS ADMINISTRATOR Office Visit [facility] - Endocrinology - [place] [address] [place] [address] Alvarez Nelson MD [address] [address] 10/07/2024 8:20 AM CDT Office Visit [facility] Oncology Services [address] [place] [address] Kevin Jin MD [address] [place] [address] Discharge Disposition: Discharged to home or Selfcare documented as of this encounter Visit Diagnoses Not on filedocumented in this encounter Additional Health Concerns Assessment Noted Time PHQ-9 Depression Total Score: 0 12/01/19 7:15 AM CDT documented as of this encounter Care Teams Vacuum Pan Operator Relationship Specialty Start Date End Date Afshan Blankenship APRN, TRANSITION SOCIAL WORKER [address] [place] [address] PCP - General Certified Nurse Practitioner 11/02/23 Maxim Barrios DPM Podiatry 04/07/15 Alvarez Nelson MD [address] [address] Consulting Physician Endocrinology 03/14/22 Mike Cardozo MD [address] [address] Consulting Physician Colon and Rectal Surgery 07/15/22 documented as of this encounter
--- OUTSIDE RECORDS SUMMARY | 2024-07-04 10:22 | XMS_ITS | Encounter Summary ---
Author Organization [facility] Address [address] [place] [address] Care Team Providers Care Instrument Technician Helper Name Role Phone Unavailable Primary Care Provider Unavailabl e Encounter Details Date Type Department Care Team (Late st Contact Info) Description 06/03/2018 [facility] Outpatient Visit [facility] Neurosciences [address] [address] [place] [address] [address] Social History Tobacco Use Types Packs/Day Years Used Date Smoking Tobacco: Never Assessed Sex and Gender Information Value Date Recorded Sex Assigned at Not on file Gender Identity Not on file Sexual Orientation Not on file documented as of this encounter Plan of Treatment Not on file documented as of this encounter Visit Diagnoses Not on filedocumented in this encounter
== END 2024-07-04 09:55 | disposition home or self-care (01) ==
PROVIDERS: Visit Provider Orthopaedic Surgery
DX: Z96.611 Presence of right artificial shoulder joint (principal)
CPT/HCPCS: 73030